=== PATIENT | female | born 1965 | race Caucasian/White ===

== ENCOUNTER 2018-07-18 09:22 | Emergency (ER) | payer BC ==
--- NOTE | 2018-07-18 09:36 | ER Document Report ---
ED Medical Screen (RME) - General Chief Complaint: Abdominal Pain Stated Complaint: ABDOMINAL PAIN Time Seen by Provider: 07/18/18 09:31 Notes: 52-year-old female patient with no significant past medical history. Reports last good bowel movement 2 weeks ago. Has had diffuse abdominal pain for 2 weeks. States when she does move her bowels over the past 2 weeks, it is usually loose or diarrhea. No fevers. Occasional nausea. Saw PCP recently and had an x-ray done, was told to take MiraLAX. I have greeted and performed a rapid initial assessment of this patient. A comprehensive ED assessment and evaluation of the patient, analysis of test results and completion of the medical decision making process will be conducted by additional ED providers. TRAVEL OUTSIDE OF THE [place] IN LAST 30 DAYS: No - Related Data Allergies/Adverse Reactions: No Known Allergies Allergy (Verified 07/18/18 09:23) Past Medical History - Social History Chew tobacco use (# tins/day): No Frequency of alcohol use: Occasional Drug Abuse: None Endocrine Medical History: Reports: Hx Diabetes Mellitus Type 2 - with neuropathy Renal/ Medical History: Denies: Hx Peritoneal Dialysis Psychiatric Medical History: Reports: Hx Depression Physical Exam - Vital signs Vitals: Temp Pulse Resp BP Pulse Ox 98.6 F 101 H 16 85/60 L 97 07/18/18 09:29 07/18/18 09:29 07/18/18 09:29 07/18/18 09:29 07/18/18 09:29 Course - Vital Signs Vital signs: Temp Pulse Resp BP Pulse Ox 98.6 F 101 H 16 85/60 L 97 07/18/18 09:29 07/18/18 09:29 07/18/18 09:29 07/18/18 09:29 07/18/18 09:29 Doctor's Discharge - Discharge Referrals: BRITTNEY YANEZ FNP [Primary Care Provider] - Follow up as needed
[2018-07-18 10:04] LABS: ABSOLUTE EOSINOPHILS # (AUTO) 0.2 10^3/uL (0.0-0.6); ABSOLUTE LYMPHOCYTES (AUTO) 1.6 10^3/uL (0.5-4.7); ABSOLUTE MONOCYTES (AUTO) 1.4 10^3/uL (0.1-1.4); ABSOLUTE NEUT (AUTO) 6.3 10^3/uL (1.7-8.2); BASOPHILS % (AUTO) 0.3 % (0-2); EOSINOPHILS % (AUTO) 2.3 % (0-6); HEMATOCRIT 45.4 % (36.0-47.0); HEMOGLOBIN 15.4 g/dL (12.0-15.5); LYMPHOCYTES % (AUTO) 16.8 % (13-45); MEAN CORPUSCULAR HEMOGLOBIN 34.7 pg (27.0-33.4); MEAN CORPUSCULAR VOLUME 102 fl (80-97); MONOCYTES % (AUTO) 14.8 % (3-13); PLATELET COUNT 284 10^3/uL (150-450); RED BLOOD COUNT 4.45 10^6/uL (3.72-5.28); RED CELL DISTRIBUTION WIDTH 13.3 % (11.5-14.0); SEGMENTED NEUTROPHILS % (AUTO) 65.8 % (42-78); TOTAL CELLS COUNTED % (AUTO) 100 %; WHITE BLOOD COUNT 9.6 10^3/uL (4.0-10.5)
[2018-07-18 10:10] LABS: APPEARANCE,URINE CLOUDY; BILIRUBIN,URINE MODERATE (NEGATIVE); COLOR,URINE AMBER; GLUCOSE, URINE NEGATIVE (NEGATIVE); KETONES,URINE TRACE mg/dL (NEGATIVE); LEUKOCYTE ESTERASE,URINE NEGATIVE (NEGATIVE); NITRITE,URINE NEGATIVE (NEGATIVE); PROTEIN,URINE 100 mg/dL (NEGATIVE); URINE SPECIFIC GRAVITY 1.027
--- NOTE | 2018-07-18 10:11 | ER Document Report ---
ED General - General TRAVEL OUTSIDE OF THE [place] IN LAST 30 DAYS: No <GEETA MAGDALENO - Last Filed: 07/18/18 13:37> <GREGORY BEASLEY - Last Filed: 07/20/18 08:20> - General Chief Complaint: Abdominal Pain Stated Complaint: ABDOMINAL PAIN Time Seen by Provider: 07/18/18 09:31 - HPI Notes: Patient is a 52-year-old female with no significant past medical history who pre sents to the emergency department complaining of mid/lower abdominal pain times 2 weeks with associated nausea and loose stool. Patient states that she does have occasional episodes of vomiting with pain. Her last bowel movement was this morning. She was told by her primary care doctor to come the emergency department for CT scan for possible small bowel obstruction. She is otherwise able to eat and drink, but does have a decreased p.o. intake. She is urinating normally. She has no vaginal discharge, odor, or bleeding. No concern of STD or STI. Denies drug allergies. Patient does report a surgical history of a C- section to her abdomen. Denies any headache, fever, neck pain, URI, sore throat, chest pain, palpitations, syncope, cough, shortness of breath, wheeze, dyspnea, urinary retention, dysuria, hematuria, back pain, loss of control of bowel or bladder, numbness/tingling, saddle anesthesia, muscle paralysis/weakness, or rash. (GEETA MAGDALENO) - Related Data Allergies/Adverse Reactions: No Known Allergies Allergy (Verified 07/18/18 09:36) Past Medical History - Social History Smoking Status: Current Every Day Smoker Chew tobacco use (# tins/day): No Frequency of alcohol use: Occasional Drug Abuse: None Family History: Reviewed & Not Pertinent Patient has suicidal ideation: No Patient has homicidal ideation: No Endocrine Medical History: Reports: Hx Diabetes Mellitus Type 2 - with neuropathy Renal/ Medical History: Denies: Hx Peritoneal Dialysis Psychiatric Medical History: Reports: Hx Depression Past Surgical History: Reports: Hx Section <GEETA MAGDALENO - Last Filed: 07/18/18 13:37> Review of Systems - Review of Systems -: Yes All other systems reviewed and negative <GEETA MAGDALENO - Last Filed: 07/18/18 13:37> Physical Exam <GEETA MAGDALENO - Last Filed: 07/18/18 13:37> - Vital signs Vitals: Temp Pulse Resp BP Pulse Ox 98.6 F 101 H 16 85/60 L 97 07/18/18 09:29 07/18/18 09:29 07/18/18 09:29 07/18/18 09:29 07/18/18 09:29 - Notes Notes: PHYSICAL EXAMINATION: GENERAL: Well-appearing, well-nourished and in no acute distress. A&Ox4. answers questions appropriately. HEAD: Atraumatic, normocephalic. EYES: Pupils equal round and reactive to light, extraocular movements intact, sclera anicteric, conjunctiva are normal. ENT: Nares patent and without discharge. oropharynx clear without exudates. No tonsilar hypertrophy or erythema. Moist mucous membranes. NECK: Normal range of motion, supple without lymphadenopathy LUNGS: Breath sounds clear to auscultation bilaterally and equal. No wheezes rales or rhonchi. HEART: Regular rate and rhythm without murmurs, rubs, gallops. ABDOMEN: Soft, nondistended abdomen. No guarding, no rebound. No masses appreciated. Normal bowel sounds present. No CVA tenderness bilaterally. + mild tenderness to the mid lower abd. Ricketts neg. No tenderness at Mc[place]. Musculoskeletal: FROM to passive/active. Strength 5+/5. Extremities: No cyanosis, clubbing, or edema b/l. Peripheral pulses 2+. Capillary refill less than 3 seconds. NEUROLOGICAL: Normal speech, normal gait. PSYCH: Normal mood, normal affect. SKIN: Warm, Dry, normal turgor, no rashes or lesions noted. (GEETA MAGDALENO) Course - Laboratory Result Diagrams: 07/18/18 09:39 07/18/18 09:39 <GEETA MAGDALENO - Last Filed: 07/18/18 13:37> - Laboratory Result Diagrams: 07/18/18 09:39 07/18/18 09:39 <GREGORY BEASLEY - Last Filed: 07/20/18 08:20> - Re-evaluation Re-evalutation: 07/18/18 13:32 Patient is an afebrile, well-hydrated, 52-year-old female who presents to the emergency department with abdominal pain unspecified and constipation. Vitals are currently acceptable without significant tachycardia, tachypnea, or hypoxia. PE is otherwise unremarkable. Patient's abdomen is now soft nontender. She is nontoxic-appearing and is tolerating p.o. without difficulty. Pt states that she is feeling much better and does not have any discomfort. CBC, CMP, lipase were unremarkable for acute pathology. Her urinalysis appears to be contaminant with 27 epithelial cells and she is otherwise asymptomatic so we will wait for urine culture prior to any treatment. Her CT scan was unremarkable for any acute pathology. No further labs or imaging warranted at this time. Low suspicion/risk for acute appendicitis, bowel obstruction, acute cholecystitis, acute cholangitis, perforated diverticulitis, incarcerated hernia, pancreatitis, perforated ulcer, peritonitis, sepsis, pelvic inflammatory disease, ectopic , tubo-ovarian abscess, ovarian torsion, or other systemic emergent condition at this time. Patient is aware that her condition can change from initial presentation and she needs to monitor symptoms closely and seek medical attention if any acute changes. Rx for zofran and mag citrate. Conservative measures otherwise for symptoms. Recheck with your PCM in 2-3 days. Consider consult with a senior economist. Return to the ED with any worsening/concerning symptoms otherwise as reviewed in discharge. Patient is in agreement. (GEETA MAGDALENO) - Vital Signs Vital signs: Temp Pulse Resp BP Pulse Ox 98.2 F 71 18 105/66 98 07/18/18 13:58 07/18/18 13:58 07/18/18 13:58 07/18/18 13:58 07/18/18 13:58 - Laboratory Laboratory results interpreted by me: 07/18/18 07/18/18 09:39 09:39 MCV 102 H MCH 34.7 H Monocytes % 14.8 H Urine Protein 100 H Urine Ketones TRACE H Urine Bilirubin MODERATE H Urine Urobilinogen 2.0 H Discharge <GEETA MAGDALENO - Last Filed: 07/18/18 13:37> <GREGORY BEASLEY - Last Filed: 07/20/18 08:20> - Discharge Clinical Impression: Unspecified abdominal pain Qualifiers: Abdominal location: lower abdomen, unspecified Qualified Code(s): R10.30 - Lower abdominal pain, unspecified Constipation Qualifiers: Constipation type: unspecified constipation type Qualified Code(s): K59.00 - Constipation, unspecified Condition: Stable Disposition: HOME, SELF-CARE Instructions: Abdominal Pain ([facility]), Antinausea Medication ([facility]), Constipation ([facility]) Additional Instructions: Maintain adequate fluid and food intake [place] diet ([employer] Bananas, rice, apples, toast, etc Zofran as needed tylenol if needed Monitor for any worsening symptoms Make sure you are staying hydrated enough to urinate and have normal BM's Recheck with your PCM in 2-3 days Consider consult with Gastroenterology for ongoing/worsening symptoms Return to the ED with any worsening symptoms and/or development of fever, headache, chest pain, palpitations, syncope, shortness of breath, trouble breathing, abdominal pain, n/v/d, blood in stool/urine, weakness, or other worsening symptoms that are concerning to you. Prescriptions: RX: Magnesium Citrate [Citrate of Magnesia 296 ml Bottle] 296 ml PO ONCE PRN #1 bottle PRN Reason: Ondansetron [Zofran Odt 4 mg Tablet] 1 - 2 tab PO Q4H PRN #15 tab.rapdis PRN Reason: For Nausea/Vomiting Referrals: BRITTNEY YANEZ FNP [Primary Care Provider] - 07/20/18 YESSICA MOE MD [ACTIVE STAFF] - Follow up as needed Cosign for MLP Consult - Cosign -: I was personally available for consultation in the Emergency Department and serving as supervising physician for the MLP. Cosign for MLP: . <GREGORY BEASLEY - Last Filed: 07/20/18 08:20>
[2018-07-18] MEDS ORDERED: NORMAL SALINE 1000 ML 1,000 ML IV ONE (10:12)
[2018-07-18] MEDS ORDERED: ONDANSETRON 4 MG TAB.RAPDIS PO ONE (10:12)
[2018-07-18 10:18] LABS: ALANINE AMINOTRANSFERASE 25 U/L (9-52); ALBUMIN 4.2 g/dL (3.5-5.0); ALKALINE PHOSPHATASE 109 U/L (38-126); ANION GAP 11 (5-19); ASPARTATE AMINO TRANSFERASE 18 U/L (14-36); BILIRUBIN,DIRECT 0.1 mg/dL (0.0-0.4); BILIRUBIN,TOTAL 0.3 mg/dL (0.2-1.3); BLOOD UREA NITROGEN 9 mg/dL (7-20); CALCIUM 9.4 mg/dL (8.4-10.2); CARBON DIOXIDE 29 mmol/L (22-30); CHLORIDE 101 mmol/L (98-107); GLUCOSE 88 mg/dL (75-110); TOTAL PROTEIN 6.7 g/dL (6.3-8.2)
--- NOTE | 2018-07-18 10:54 | RADIOLOGY REPORT (SQ) ---
EXAM DESCRIPTION: ACUTE ABDOMEN SERIES COMPLETED DATE/TIME: 07/18/2018 9:53 am REASON FOR STUDY: Last normal BM 2 weeks ago. Loose stools. COMPARISON: None. NUMBER OF VIEWS: Three views. TECHNIQUE: Frontal chest, supine abdomen and upright/decubitus abdomen radiographic images acquired. LIMITATIONS: None. FINDINGS: CHEST: Lungs clear of infiltrates. FREE AIR: None. No abnormal gas collections. BOWEL GAS PATTERN: Nonobstructive pattern. No dilated loops or air fluid levels. CALCIFICATIONS: No suspicious calcifications. HARDWARE: None in the abdomen. SOFT TISSUES: No gross mass or suggestion of organomegaly. BONES: No acute fracture. No worrisome bone lesions. OTHER: No other significant finding. IMPRESSION: NO RADIOGRAPHIC EVIDENCE FOR ACUTE ABDOMINAL DISEASE. TECHNICAL DOCUMENTATION: JOB ID: [id number] [employer]- All Rights Reserved Reading location - IP/workstation name: [email or web address]
--- NOTE | 2018-07-18 12:54 | RADIOLOGY REPORT (SQ) ---
EXAM DESCRIPTION: CT ABD/PELVIS WITH IV ORAL COMPLETED DATE/TIME: 07/18/2018 12:42 pm REASON FOR STUDY: possible SBO, abd pain COMPARISON: None. TECHNIQUE: CT scan of the abdomen and pelvis performed using helical scanning technique with dynamic intravenous contrast injection. With oral contrast. Images reviewed with lung, soft tissue, and bon e windows. Reconstructed coronal and sagittal MPR images reviewed. Delayed images for evaluation of t he urinary system also acquired. All images stored on PACS. All CT scanners at this facility use dose modulation, iterative reconstruction, and/or weight based d osing when appropriate to reduce radiation dose to as low as reasonably achievable (ALARA). [facility]: Dose Right [facility]: CareDose [facility]: Dose Right [facility]: Teradose 4D [facility]: [employer] CONTRAST TYPE AND DOSE: contrast/concentration: Isovue 350.00 mg/ml; Total Contrast Delivered: 72.0 ml; Total Saline Delivered: 66.0 ml RENAL FUNCTION: GFR > 60. RADIATION DOSE: CT Rad equipment meets quality standard of care and radiation dose reduction techniq ues were employed. CTDIvol: 5.5 - 7.6 mGy. DLP: 657 mGy-cm.. LIMITATIONS: None. FINDINGS: LOWER CHEST: No significant findings. No nodules or infiltrates. LIVER: Normal size. No masses. No dilated ducts. SPLEEN: Normal size. No focal lesions. PANCREAS: No masses. No significant calcifications. No adjacent inflammation or peripancreatic fluid collections. Pancreatic duct not dilated. GALLBLADDER: No identified stones by CT criteria. No inflammatory changes to suggest cholecystitis. ADRENAL GLANDS: No significant masses or asymmetry. RIGHT KIDNEY AND URETER: No solid masses. No significant calcifications. No hydronephrosis or hyd roureter. LEFT KIDNEY AND URETER: No solid masses. No significant calcifications. No hydronephrosis or hydr oureter. AORTA AND VESSELS: No aneurysm. No dissection. Renal arteries, SMA, celiac without stenosis. RETROPERITONEUM: No retroperitoneal adenopathy, hemorrhage or masses. BOWEL AND PERITONEAL CAVITY: No bowel obstruction. No inflammatory changes. There are some scattere d small mesenteric nodes. APPENDIX: Normal. PELVIS: No mass. No free fluid. Normal bladder. ABDOMINAL WALL: No masses. No hernias. BONES: No significant or acute findings. OTHER: No other significant finding. IMPRESSION: Small scattered mesenteric lymph nodes. No small bowel obstruction. TECHNICAL DOCUMENTATION: JOB ID: [id number] Quality ID # [id number]: Final reports with documentation of one or more dose reduction techniques (e.g., Au tomated exposure control, adjustment of the mA and/or kV according to patient size, use of iterative reconstruction technique) 2010 [employer]- All Rights Reserved Reading location - IP/workstation name: [email or web address]
[2018-07-18 14:03] VITALS: BP 105/66
== END 2018-07-18 14:02 | disposition home or self-care (01) ==
LOC: ER 09:22
DX: K59.00 Constipation, unspecified (principal); R10.30 Lower abdominal pain, unspecified; R11.2 Nausea with vomiting, unspecified; R19.7 Diarrhea, unspecified; F17.200 Nicotine dependence, unspecified, uncomplicated; E11.9 Type 2 diabetes mellitus without complications
CPT/HCPCS: 99284; 36415; 87086; 83690; 85025; 87088; 80053; 81001; 74022; 74177; S0119; J7030

== ENCOUNTER 2018-07-20 18:34 | Emergency (ER) | payer BC ==
[2018-07-20] MEDS ORDERED: ONDANSETRON 4 MG TAB.RAPDIS PO ONE (19:29)
--- NOTE | 2018-07-20 19:29 | ER Document Report ---
ED Medical Screen (RME) - General Chief Complaint: Abdominal Pain Stated Complaint: ABDOMINAL PAIN Time Seen by Provider: 07/20/18 19:20 Notes: 52-year-old female patient with abdominal pain. Was seen here 2 days ago with workup including acute abdominal series and CT scans. Most likely diagnosis was constipation. Patient does have some bowel movement, but it is just liquid. She continues with abdominal discomfort. She is having some vomiting now. I have greeted and performed a rapid initial assessment of this patient. A comprehensive ED assessment and evaluation of the patient, analysis of test results and completion of the medical decision making process will be conducted by additional ED providers. TRAVEL OUTSIDE OF THE [place] IN LAST 30 DAYS: No - Related Data Allergies/Adverse Reactions: No Known Allergies Allergy (Verified 07/18/18 09:36) Past Medical History - Social History Chew tobacco use (# tins/day): No Frequency of alcohol use: Occasional Drug Abuse: None Endocrine Medical History: Reports: Hx Diabetes Mellitus Type 2 - with neuropathy Renal/ Medical History: Denies: Hx Peritoneal Dialysis Psychiatric Medical History: Reports: Hx Depression Past Surgical History: Reports: Hx Section Physical Exam - Vital signs Vitals: Temp Pulse Resp BP Pulse Ox 98.8 F 95 16 112/71 96 07/20/18 18:56 07/20/18 18:56 07/20/18 18:56 07/20/18 18:56 07/20/18 18:56 Course - Vital Signs Vital signs: Temp Pulse Resp BP Pulse Ox 98.8 F 95 16 112/71 96 07/20/18 18:56 07/20/18 18:56 07/20/18 18:56 07/20/18 18:56 07/20/18 18:56 Doctor's Discharge - Discharge Referrals: BRITTNEY AYNEZ FNP [Primary Care Provider] - Follow up as needed
[2018-07-20] MEDS ORDERED: NORMAL SALINE 1000 ML 1,000 ML IV ONE (20:35)
[2018-07-20] MEDS ORDERED: KETOROLAC TROMETHAMINE INJ/PF 30 MG/1 ML SDV IV ONE (21:01)
--- NOTE | 2018-07-20 21:23 | ER Document Report ---
ED General - General TRAVEL OUTSIDE OF THE [place] IN LAST 30 DAYS: No <CHASE ROB Leida - Last Filed: 07/21/18 00:07> <WARREN ORTIZ - Last Filed: 07/21/18 00:54> - General Chief Complaint: Abdominal Pain Stated Complaint: ABDOMINAL PAIN Time Seen by Provider: 07/20/18 19:20 Notes: Patient is a 52-year-old female that presents to the emergency department for chief complaint of abdominal pain. Patient reports that she is been having abdominal pain for the last several days, she initially was seen in the emergency department 2 days ago, was diagnosed with possible constipation and discharged home. She is been having the same pain is not relieved, does come and go, she describes the pain is severe when it comes on, as a 9 out of 10. And sharp pain. She denies prior history of this, she is had associated vomiting and diarrhea, and at this time is complaining of nausea. She denies noting any blood in the vomit or the stool. Denies any hematuria, dysuria or urine frequency. No other complaints at this time. Past Medical History: Neuropathy Past Surgical History: Social History: Admits to smoking cigarettes daily, denies alcohol or drug use. Family History: Reviewed and noncontributory for presenting illness Allergies: Reviewed, see documented allergy list. REVIEW OF SYSTEMS: Other than noted above, the 12 point review of systems was reviewed with the patient and were negative, all pertinent findings are included in the HPI. PHYSICAL EXAMINATION: Vital signs reviewed, nursing noted reviewed. GENERAL: Patient appears uncomfortable exam, but not in acute distress. HEAD: Atraumatic, normocephalic. EYES: Eyes appear normal, extraocular movements intact, sclera anicteric, conjunctiva are normal. ENT: nares patent, oropharynx clear without exudates. Moist mucous membranes. NECK: Normal range of motion, supple without lymphadenopathy LUNGS: Breath sounds clear to auscultation bilaterally and equal. No wheezes rales or rhonchi. HEART: Regular rate and rhythm without murmurs ABDOMEN: Soft, diffusely tender to palpate, with some involuntary guarding, normoactive bowel sounds. No rebound or rigidity. No masses appreciated. EXTREMITIES: Nontender, good range of motion, no pitting or edema. NEUROLOGICAL: No focal neurological deficits. Moves all extremities spontaneously Motor and sensory grossly intact on exam. PSYCH: Normal mood, normal affect. SKIN: Warm, Dry, normal turgor, no rashes or lesions noted on exposed skin (CHASE ROB) - Related Data Allergies/Adverse Reactions: No Known Allergies Allergy (Verified 07/18/18 09:36) Past Medical History - Social History Smoking Status: Current Every Day Smoker Chew tobacco use (# tins/day): No Frequency of alcohol use: Occasional Drug Abuse: None Family History: Reviewed & Not Pertinent Patient has suicidal ideation: No Patient has homicidal ideation: No Endocrine Medical History: Reports: Hx Diabetes Mellitus Type 2 - with neuropathy Renal/ Medical History: Denies: Hx Peritoneal Dialysis Psychiatric Medical History: Reports: Hx Depression Past Surgical History: Reports: Hx Section <CHASE ROB - Last Filed: 07/21/18 00:07> - Vital signs Vitals: Temp Pulse Resp BP Pulse Ox 98.8 F 95 16 112/71 96 07/20/18 18:56 07/20/18 18:56 07/20/18 18:56 07/20/18 18:56 07/20/18 18:56 Course - Laboratory Result Diagrams: 07/20/18 21:35 07/20/18 21:35 <CHASE ROB - Last Filed: 07/21/18 00:07> - Laboratory Result Diagrams: 07/20/18 21:35 07/20/18 21:35 <WARREN ORTIZ - Last Filed: 07/21/18 00:54> - Re-evaluation Re-evalutation: Patient seen and examined vital signs reviewed. Laboratory data and imaging were ordered as appropriate for the patient's presenting symptoms and complaint, with consideration of any critical or life threatening conditions that may be associated with their obtained history and exam as noted above. Patient was treated with IV fluid, Zofran, and Toradol for her pain Results were reviewed when available and demonstrated a leukocytosis of 16,000, this was increased from her last visit, therefore I decided to obtain a CT of the abdomen and pelvis, her blood work was otherwise unremarkable, lactic acid normal, lipase negative, UA unremarkable. The patient was re-evaluated and was resting comfortably in the bed, sleeping Evaluation was most consistent with abdominal pain, nonspecific Results were discussed with the patient at this point, after careful consideration I feel that that patient can be discharged from the emergency department, the patient was educated treatments and reasons to return to the emergency department based on their presumed diagnosis as noted above, they were advised to followup with a primary care physician in 2-3 days. Patient was agreeable to plan of care. *Note is created using voice recognition software and may contain spelling, syntax or grammatical errors. (CHASE ROB) 07/21/18 00:48 Patient was checked out to me by Dr. Glen Rob pending results of CT scan. CT scan shows colitis. I went back and spoke with the patient to try to obtain some more information. Patient's symptoms have actually been ongoing for about 2-3 weeks. Just prior to the symptoms started she had finished a course of antibiotics for a tooth infection. This suggests that this potentially could be C. difficile related or colitis or other bacterial cause. I therefore placed on both Cipro and Flagyl. She currently looks well and feels well and is not currently in pain. Will prescribe her both Cipro and Flagyl. I informed her that she needs to follow-up with her doctor on or Friday for reevaluation. I encouraged her return to ER immediately if she has worsening pain, recurrent fevers, vomiting, blood in her stool, or if she feels she is worsening in any way. Patient and agree with plan and patient will be discharged home. (WARREN ORTIZ) - Vital Signs Vital signs: Temp Pulse Resp BP Pulse Ox 100.0 F 76 15 107/61 96 07/20/18 23:17 07/20/18 23:17 07/20/18 23:17 07/20/18 23:17 07/20/18 23:17 - Laboratory Laboratory results interpreted by me: 07/20/18 07/20/18 07/20/18 21:35 21:35 21:35 WBC 16.7 H MCV 102 H MCH 34.4 H Seg Neutrophils % 81.5 H Lymphocytes % 8.2 L Absolute Neutrophils 13.6 H Absolute Monocytes 1.5 H Total Protein 6.1 L Urine Protein 30 H Urine Ketones 20 H Urine Bilirubin SMALL H Urine Urobilinogen 2.0 H Discharge <CHASE ROB - Last Filed: 07/21/18 00:07> <WARREN ORTIZ - Last Filed: 07/21/18 00:54> - Discharge Clinical Impression: Colitis Abdominal pain Qualifiers: Abdominal location: unspecified location Qualified Code(s): R10.9 - Unspecified abdominal pain Condition: Stable Disposition: HOME, SELF-CARE Additional Instructions: Your CT scan reveals colitis. This is inflammation of the bowel that can lead to diarrhea. This usually caused by an infection. Sometimes this infection is viral or bacterial. I suspect that your infection is bacterial based on your recent antibiotic use and the recurrence of symptoms. Because of recent antibiotic use your diarrhea could be caused by a bacteria called C. Diff. Treatment is with another antibiotic I will place you on 2 antibiotics to help treat possible underlying infection. These antibiotics are Ciprofloxacin and Metronidazole. Please take these antibiotics as prescribed. Metronidazole can cause some vomiting especially if you drink alcohol. Please avoid all alcohol use while on this antibiotic. You have been prescribed an antibiotic called Ciprofloxacin that is in the class of antibiotics called fluoroquinolones. On rare occasions these can cause weakness of the tendons. You should therefore avoid any type of heavy lifting or sporting activities while you are on this antibiotic and up to 1 week after stopping it. Please return to the ER immediately if you have blood in your stool, worsening abdominal pain, recurrent fevers not responding to Tylenol, vomiting, or if you feel that you are worsening in any way. Please follow-up with your doctor on or Friday for reevaluation. Prescriptions: Ciprofloxacin HCl [Cipro 500 mg Tablet] 500 mg PO BID #14 tablet Dicyclomine HCl [Bentyl 20 mg Tablet] 20 mg PO QID PRN #20 tablet PRN Reason: Abdominal Cramping Metronidazole [Flagyl 500 mg Tablet] 500 mg PO Q6H #28 tablet Forms: Return to Work Referrals: BRITTNEY YANEZ FNP [Primary Care Provider] - 07/23/18
[2018-07-20 21:46] LABS: ABSOLUTE EOSINOPHILS # (AUTO) 0.1 10^3/uL (0.0-0.6); ABSOLUTE LYMPHOCYTES (AUTO) 1.4 10^3/uL (0.5-4.7); ABSOLUTE MONOCYTES (AUTO) 1.5 10^3/uL (0.1-1.4); ABSOLUTE NEUT (AUTO) 13.6 10^3/uL (1.7-8.2); BASOPHILS % (AUTO) 0.2 % (0-2); EOSINOPHILS % (AUTO) 0.9 % (0-6); HEMATOCRIT 42.7 % (36.0-47.0); HEMOGLOBIN 14.4 g/dL (12.0-15.5); LYMPHOCYTES % (AUTO) 8.2 % (13-45); MEAN CORPUSCULAR HEMOGLOBIN 34.4 pg (27.0-33.4); MEAN CORPUSCULAR HGB CONC 33.8 g/dL (32.0-36.0); MEAN CORPUSCULAR VOLUME 102 fl (80-97); MONOCYTES % (AUTO) 9.2 % (3-13); PLATELET COUNT 287 10^3/uL (150-450); RED CELL DISTRIBUTION WIDTH 13.1 % (11.5-14.0); SEGMENTED NEUTROPHILS % (AUTO) 81.5 % (42-78); TOTAL CELLS COUNTED % (AUTO) 100 %; WHITE BLOOD COUNT 16.7 10^3/uL (4.0-10.5)
[2018-07-20 21:57] LABS: ALANINE AMINOTRANSFERASE 31 U/L (9-52); ALBUMIN 3.8 g/dL (3.5-5.0); ALKALINE PHOSPHATASE 91 U/L (38-126); ANION GAP 7 (5-19); ASPARTATE AMINO TRANSFERASE 15 U/L (14-36); BILIRUBIN,DIRECT 0.1 mg/dL (0.0-0.4); BILIRUBIN,TOTAL 0.4 mg/dL (0.2-1.3); BLOOD UREA NITROGEN 8 mg/dL (7-20); CALCIUM 8.8 mg/dL (8.4-10.2); CARBON DIOXIDE 27 mmol/L (22-30); CHLORIDE 104 mmol/L (98-107); GLUCOSE 96 mg/dL (75-110); LIPASE 32.2 U/L (23-300); POTASSIUM 3.6 mmol/L (3.6-5.0); SODIUM 137.7 mmol/L (137-145); TOTAL PROTEIN 6.1 g/dL (6.3-8.2)
[2018-07-20 22:17] LABS: APPEARANCE,URINE CLOUDY; BILIRUBIN,URINE SMALL (NEGATIVE); COLOR,URINE AMBER; GLUCOSE, URINE NEGATIVE (NEGATIVE); KETONES,URINE 20 mg/dL (NEGATIVE); LEUKOCYTE ESTERASE,URINE NEGATIVE (NEGATIVE); NITRITE,URINE NEGATIVE (NEGATIVE); PROTEIN,URINE 30 mg/dL (NEGATIVE); URINE SPECIFIC GRAVITY 1.024
--- NOTE | 2018-07-21 00:35 | RADIOLOGY REPORT (SQ) ---
CT ABDOMEN PELVIS WITH IV CONTRAST HISTORY: Abdominal pain. COMPARISON: 07/18/2018. TECHNIQUE: CT scan of the abdomen and pelvis with IV contrast. This exam was performed according to our departmental dose-optimization program, which includes automated exposure control, adjustment of the mA and/or kV according to patient size and/or use of iterative reconstruction technique. FINDINGS: The lung bases are clear. No pleural or pericardial effusions. The liver, spleen, and pancreas are unremarkable. No gallstones by CT criteria. No adrenal masses are identified. The kidneys are symmetric without hydronephrosis. No ureteral or bladder stones are seen. There is an enhancing leiomyoma in the uterine fundus. No small bowel obstruction. There is diffuse wall thickening throughout the colon most prominent in the sigmoid colon consistent with colitis. The colon is partially fluid-filled suggesting a diarrheal illness. No free fluid or free air is identified. There are small scattered mesenteric lymph nodes likely reactive. The abdominal aorta is normal caliber. Degenerative disc disease at L5-S1. IMPRESSION: 1. Diffuse colitis greatest in the sigmoid colon. 2. Fluid-filled colon, suggesting a diarrheal illness.
[2018-07-21] MEDS ORDERED: METRONIDAZOLE 500 MG TABLET PO ONE (00:47)
[2018-07-21] MEDS ORDERED: CIPROFLOXACIN HCL 500 MG TABLET PO ONE (00:47)
[2018-07-21 01:05] VITALS: BP 97/63
== END 2018-07-21 01:05 | disposition home or self-care (01) ==
LOC: ER 18:34
DX: K52.9 Noninfective gastroenteritis and colitis, unspecified (principal); E11.40 Type 2 diabetes mellitus with diabetic neuropathy, unspecified; R10.9 Unspecified abdominal pain; F17.210 Nicotine dependence, cigarettes, uncomplicated
CPT/HCPCS: 99284; 96361; 96374; 36415; 83690; 85025; 80053; 81001; 83605; 74177; S0119; J1885; J7030

== ENCOUNTER 2020-03-03 09:57 | Observation (INO) | payer BC ==
[2020-03-03] MEDS ORDERED: IPRATROPIUM/ALBUTEROL 0.5-2.5 MG/3 ML AMPUL NEB ONE (10:39)
[2020-03-03] MEDS ORDERED: NORMAL SALINE 1000 ML 1,000 ML IV ONE (10:39)
[2020-03-03] MEDS ORDERED: METHYLPREDNISOLONE INJ 125 MG/2 ML SDV IV ONE (10:39)
--- NOTE | 2020-03-03 10:40 | ER Document Report ---
Entered by JOSHUA RAYA SCRIBE 03/03/20 1035 Acting as scribe for:GILBERT LANG MD ED Respiratory Problem - General Chief Complaint: Breathing Difficulty Stated Complaint: DIFFICULTY BREATHING Time Seen by Provider: 03/03/20 10:25 Mode of Arrival: Ambulatory Information source: Patient Notes: This 54-year-old female patient presents to the emergency department today with complaints of a COPD exacerbation. Patient was seen approximately a month ago and was admitted with a similar complaint, at that time she was tested for COVID and it was negative. EMS found the patient with a room air saturation of 83%, she was given 1 breathing treatment and it huy to 94% although when she arrived here it was back down to 86%. She reports that she woke up around 2:30 AM in a coughing fit and has been coughing much of today, always nonproductive. Patient was admitted here on 01/31/2020 through 02/03/2020 for a COPD exacerbation. TRAVEL OUTSIDE OF THE [place] IN LAST 30 DAYS: No - Related Data Allergies/Adverse Reactions: No Known Allergies Allergy (Verified 07/18/18 09:36) Past Medical History - General Information source: Patient, REPLACED BY [facility] Records - Social History Smoking Status: Current Every Day Smoker Cigarette use (# per day): Yes Family History: Reviewed & Not Pertinent Pulmonary Medical History: Reports: Hx COPD Endocrine Medical History: Reports: Hx Diabetes Mellitus Type 2 - with neuropathy Psychiatric Medical History: Reports: Hx Depression Past Surgical History: Reports: Hx Section Review of Systems - Review of Systems Constitutional: No symptoms reported EENT: No symptoms reported Cardiovascular: No symptoms reported Respiratory: See HPI, Cough, Short of breath Gastrointestinal: No symptoms reported Genitourinary: No symptoms reported Female Genitourinary: No symptoms reported Musculoskeletal: No symptoms reported Skin: No symptoms reported Hematologic/Lymphatic: No symptoms reported Neurological/Psychological: No symptoms reported -: Yes All other systems reviewed and negative Physical Exam - Vital signs Vitals: Pulse Ox 93 03/03/20 10:00 - Notes Notes: Physical Exam: General: Alert, appears older than stated age. HEENT: Normocephalic. Atraumatic. PERRL. Extraocular movements intact. Oropharynx clear. Neck: Supple. Non-tender. Respiratory: Moderate respiratory distress, tachypneic with retractions. Wheezing and rhonchi bilaterally. Cardiovascular: Regular rate and rhythm. Abdominal: Normal Inspection. Non-tender. No distension. Normal Bowel Sounds. Back: No gross abnormalities. Extremities: Moves all four extremities. Upper extremities: Normal inspection. Normal ROM. Lower extremities: Normal inspection. No edema. Normal ROM. Neurological: Normal cognition. AAOx4. Normal speech. Psychological: Normal affect. Normal Mood. Skin: Warm. Dry. Normal color. Course - Vital Signs Vital signs: Temp Pulse Resp BP Pulse Ox 98.1 F 87 16 122/69 95 03/03/20 23:58 03/04/20 02:21 03/04/20 02:21 03/03/20 23:58 03/04/20 02:21 - Laboratory Result Diagrams: 03/03/20 10:14 03/03/20 10:14 Laboratory results interpreted by me: 03/03/20 03/03/20 03/03/20 10:14 10:14 10:14 MCV 99 H MCH 34.3 H Seg Neuts % (Manual) 83 H Lymphocytes % (Manual) 5 L Est GFR (MDRD) Non-Af 51 L Magnesium AST 47 H ALT 62 H Alkaline Phosphatase 128 H NT-Pro-B Natriuret Pep 247 H Urine Ketones 03/03/20 03/03/20 10:14 13:45 MCV MCH Seg Neuts % (Manual) Lymphocytes % (Manual) Est GFR (MDRD) Non-Af Magnesium 1.5 L AST ALT Alkaline Phosphatase NT-Pro-B Natriuret Pep Urine Ketones TRACE H - Diagnostic Test Radiology reviewed: Image reviewed - Chest x-ray does not show acute abnormalities. - EKG Interpretation by Mi EKG shows normal: Sinus rhythm, [place], Intervals, QRS Complexes, ST-T Waves Rate: Tachycardia - 109 - Consults Dr. Dash Time consulted: 13:56 Consulted provider: will come to ER Critical Care Note - Critical Care Note Total time excluding time spent on procedures (mins): 30 Comments: At least 30 minutes spent evaluating the patient, reviewing prior records and prior history. The patient was brought in by EMS after becoming extremely hypoxic at work due to her COPD exacerbation. She received multiple breathing treatments, steroids, magnesium, and was reevaluated several times to determine if she was a candidate for outpatient management. It was decided that this was not a safe option, so the patient was discussed with the hospitalist service transportation security officer for admission. Discharge - Discharge Clinical Impression: COPD exacerbation, Acute bronchitis with bronchospasm Condition: Stable Disposition: ADMITTED INPATIENT Admitting Provider: Hardy (Hospitalist) Unit Admitted: Medical Floor I personally performed the services described in the documentation, reviewed and edited the documentation which was dictated to the scribe in my presence, and it accurately records my words and actions.
[2020-03-03 10:53] LABS: HEMATOCRIT 38.7 % (36.0-47.0); HEMOGLOBIN 13.5 g/dL (12.0-15.5); MEAN CORPUSCULAR HEMOGLOBIN 34.3 pg (27.0-33.4); MEAN CORPUSCULAR HGB CONC 34.8 g/dL (32.0-36.0); MEAN CORPUSCULAR VOLUME 99 fl (80-97); PLATELET COUNT 242 10^3/uL (150-450); RED BLOOD COUNT 3.92 10^6/uL (3.72-5.28); RED CELL DISTRIBUTION WIDTH 12.8 % (11.5-14.0); WHITE BLOOD COUNT 9.4 10^3/uL (4.0-10.5)
[2020-03-03] MEDS: MAGNESIUM SULFATE/D5W 1 GM/100 ML RTUPB IV SCH ×2 (10:57→11:56)
[2020-03-03 10:58] LABS: ALBUMIN 4.1 g/dL (3.5-5.0); ALKALINE PHOSPHATASE 128 U/L (38-126); ANION GAP 10 (5-19); ASPARTATE AMINO TRANSFERASE 47 U/L (14-36); BILIRUBIN,DIRECT 0.4 mg/dL (0.0-0.4); BILIRUBIN,TOTAL 0.8 mg/dL (0.2-1.3); BLOOD UREA NITROGEN 14 mg/dL (7-20); CALCIUM 9.4 mg/dL (8.4-10.2); CARBON DIOXIDE 26 mmol/L (22-30); CHLORIDE 102 mmol/L (98-107); CREATINE KINASE 110 U/L (30-135); GLUCOSE 75 mg/dL (75-110); POTASSIUM 3.9 mmol/L (3.6-5.0); TOTAL PROTEIN 6.6 g/dL (6.3-8.2)
--- NOTE | 2020-03-03 11:01 | RADIOLOGY REPORT (SQ) ---
EXAM DESCRIPTION: CHEST SINGLE VIEW IMAGES COMPLETED DATE/TIME: 03/03/2020 10:51 am REASON FOR STUDY: sob COMPARISON: AP view of the chest from 01/31/2020. EXAM PARAMETERS: NUMBER OF VIEWS: One view. TECHNIQUE: An AP view of the chest was obtained. RADIATION DOSE: NA LIMITATIONS: None. FINDINGS: LUNGS AND PLEURA: No consolidation, pleural effusion or pneumothorax. MEDIASTINUM AND HILAR STRUCTURES: No mediastinal or hilar contour abnormality. HEART AND VASCULAR STRUCTURES: The cardiac silhouette and pulmonary vasculature are within normal castro its. BONES: No acute findings. HARDWARE: None in the chest. OTHER: No other finding. IMPRESSION: No acute cardiopulmonary process. TECHNICAL DOCUMENTATION: JOB ID: [id number] 2010 [employer]- All Rights Reserved Reading location - IP/workstation name: [email or web address]
[2020-03-03 11:16] LABS: ABSOLUTE LYMPHOCYTES# (MANUAL) 0.5 10^3/uL (0.5-4.7); ABSOLUTE MONOCYTES # (MANUAL) 0.7 10^3/uL (0.1-1.4); BASOPHILS % (MANUAL) 1 % (0-2); EOSINOPHILS % (MANUAL) 4 % (0-6); LYMPHOCYTES % (MANUAL) 5 % (13-45); MONOCYTES % (MANUAL) 7 % (3-13); PLATELET COMMENT ADEQUATE; RBC MORPHOLOGY COMMENT NORMO-CYTIC/CHROMIC; SEGMENTED NEUTROPHILS % (MAN) 83 % (42-78); TOTAL CELLS COUNTED 100; TOXIC GRANULATION 1+
--- NOTE | 2020-03-03 11:17 | EKG REPORT ---
SEVERITY:- OTHERWISE NORMAL ECG - SINUS TACHYCARDIA : Confirmed by: Charis Aguirre MD 03-Mar-2020 11:15:48
[2020-03-03] MEDS ORDERED: ALBUTEROL SULFATE 0.083% NEB 2.5 MG/3 ML AMPUL NEB ONE ×2 (12:21→13:54)
[2020-03-03 14:29] LABS: APPEARANCE,URINE SLIGHTLY-CLOUDY; BILIRUBIN,URINE NEGATIVE (NEGATIVE); COLOR,URINE YELLOW; GLUCOSE, URINE NEGATIVE (NEGATIVE); KETONES,URINE TRACE mg/dL (NEGATIVE); LEUKOCYTE ESTERASE,URINE NEGATIVE (NEGATIVE); NITRITE,URINE NEGATIVE (NEGATIVE); PROTEIN,URINE NEGATIVE (NEGATIVE); UROBILINOGEN,URINE NEGATIVE mg/dL (<2.0)
[2020-03-03] MEDS ORDERED: IPRATROPIUM/ALBUTEROL 0.5-2.5 MG/3 ML AMPUL NEB PRN (16:37)
[2020-03-03] MEDS ORDERED: MAG HYDROX/AL HYDROX/SIMETH SUSP 30 ML UDCUP PO PRN (16:37)
[2020-03-03] MEDS ORDERED: ACETAMINOPHEN 325 MG TABLET PO PRN (16:37)
[2020-03-03] MEDS ORDERED: MAGNESIUM HYDROXIDE SUSP 30 ML UDCUP PO PRN (16:37)
[2020-03-03] MEDS ORDERED: PROMETHAZINE HCL 25 MG TABLET PO PRN (16:37)
[2020-03-03] MEDS ORDERED: GUAIFENESIN/D-METHORPHAN (200-20 MG) SYRUP 10 ML PO PRN (16:47)
--- NOTE | 2020-03-03 17:18 | PDOC H&P ---
History of Present Illness Admission Date/PCP: 03/03/20 15:34 YUMIKO SETHI Patient complains of: Acute onset shortness of breath History of Present Illness: ELIZABETH RAMIREZ is a 54 year old female who was just discharged from [facility] on February 05. She has a relatively new diagnosis of chronic obstructive pulmonary disease. She was discharged on a prednisone taper and was to complete a course of azithromycin. She reports waking up at approximately 2:30 AM and began coughing. She has been coughing consistently since then. She was back at work today on [employer] when she became acutely more short of breath. EMS was called. Oxygen saturation was 83% on room air. She was given nebulizer treatments and supplemental oxygen and she was above 90%. Upon arrival to the emergency department off of oxygen she dropped again to the mid 80s and so oxygen therapy was reestablished her white blood cell count is normal. Her platelet count is normal. Serum chemistries are unremarkable including her glucose. Her magnesium is just below the normal limit at 1.5 and the AST, ALT and alkaline phosphatase are minimally elevated. The patient will be admitted for an exacerbation of her COPD. She does also present with acute on chronic respiratory failure with hypoxia. She will be given antibiotic therapy for possible bronchitis associated with COPD. She will be given systemic steroids. She will receive nebulizer treatments and we will try and taper her from the oxygen. I am hoping that we can get her turned around and discharge in 24 to 48 hours. Past Medical History Cardiac Medical History: Denies: Congestive Heart Failure, Coronary Artery Disease, Myocardial Infarction Pulmonary Medical History: Reports: Chronic Obstructive Pulmonary Disease (COPD) EENT Medical History: Denies: Cataracts, Ears, Nose, Throat Neurological Medical History: Reports: Other - Significant hearing loss Denies: Ischemic CVA Endocrine Medical History: Reports: Diabetes Mellitus Type 2 - with neuropathy Denies: Hypothyroidism Renal/ Medical History: Denies: Chronic Kidney Disease, Nephrolithiasis Malignancy Medical History: Reports: None GI Medical History: Denies: Diverticulitis, Gastroesophageal Reflux Disease, Hiatal Hernia Musculoskeltal Medical History: Reports: Arthritis Psychiatric Medical History: Reports: Depression, Tobacco Dependency Traumatic Medical History: Reports: None Hematology: Denies: Anemia, Bleeding Tendencies Infectious Medical History: Reports: None Past Surgical History Past Surgical History: Reports: Section Social History Information Source: Patient, COUNT [facility] Records Lives with: Family Smoking Status: Current Every Day Smoker Electronic Cigarette use?: Yes Frequency of Alcohol Use: None Hx Recreational Drug Use: Yes Drugs: Marijuana Hx Prescription Drug Abuse: No - Advance Directive Resuscitation Status: Full Code Family History Family History: CAD, Hypertension Parental Family History Reviewed: Yes Children Family History Reviewed: Yes Sibling(s) Family History Reviewed.: Yes Medication/Allergy Home Medications: Fluoxetine HCl [Prozac] 80 mg PO QAM 01/31/20 Gabapentin [Neurontin] 800 mg PO TID 01/31/20 Meloxicam [Mobic] 15 mg PO DAILY 01/31/20 Prednisone [Deltasone 20 mg Tablet] 60 mg PO DAILY #12 tablet 02/03/20 Albuterol Sulfate [Albuterol Sulfate Hfa] 1 puff IH Q4HP PRN 03/03/20 Benzonatate [Tessalon Perles 100 mg Capsule] 100 mg PO Q8HP PRN 03/03/20 Allergies/Adverse Reactions: No Known Allergies Allergy (Verified 07/18/18 09:36) Review of Systems All systems: reviewed and no additional remarkable complaints except as stated Respiratory: PRESENT: dyspnea Neurological: PRESENT: other - Hearing loss Physical Exam Vital Signs: Temp Pulse Resp BP Pulse Ox 98.4 F 16 114/84 100 03/03/20 12:00 03/03/20 14:01 03/03/20 14:01 03/03/20 14:01 Intake & Output 03/02/20 03/03/20 03/04/20 06:59 06:59 06:59 Intake Total 1200 Balance 1200 Weight 63.8 kg General appearance: PRESENT: no acute distress, cooperative, well-developed, other - Very hard of hearing Head exam: PRESENT: atraumatic, normocephalic Eye exam: PRESENT: conjunctiva pink. ABSENT: scleral icterus Ear exam: PRESENT: normal external ear exam. ABSENT: bleeding, drainage Mouth exam: PRESENT: moist, tongue midline Respiratory exam: PRESENT: rhonchi, symmetrical, unlabored. ABSENT: rales, tachypnea, wheezes Cardiovascular exam: PRESENT: RRR, +S1, +S2. ABSENT: bradycardia, diastolic murmur, irregular rhythm, systolic murmur, tachycardia GI/Abdominal exam: PRESENT: normal bowel sounds, soft. ABSENT: distended, guarding, tenderness Rectal exam: PRESENT: deferred Gentrourinary exam: ABSENT: indwelling catheter Extremities exam: ABSENT: calf tenderness, joint swelling, pedal edema Musculoskeletal exam: PRESENT: ambulatory, normal inspection. ABSENT: deformity, dislocation Neurological exam: PRESENT: alert, awake, oriented to person, oriented to place, oriented to time, oriented to situation. ABSENT: altered, CN II-XII grossly intact - Severe hearing loss Psychiatric exam: PRESENT: flat affect. ABSENT: agitated, anxious Focused psych exam: ABSENT: delusional, paranoid Skin exam: PRESENT: dry, normal color, warm. ABSENT: rash Results Laboratory Results: 03/03/20 10:14 03/03/20 10:14 03/03/20 03/03/20 03/03/20 10:14 10:14 10:14 WBC 9.4 RBC 3.92 Hgb 13.5 Hct 38.7 MCV 99 H MCH 34.3 H MCHC 34.8 RDW 12.8 Plt Count 242 Seg Neutrophils % Not Reportable Sodium 137.8 Potassium 3.9 Chloride 102 Carbon Dioxide 26 Anion Gap 10 BUN 14 Creatinine 1.12 Est GFR ( Amer) > 60 Glucose 75 Calcium 9.4 Magnesium 1.5 L Total Bilirubin 0.8 AST 47 H Alkaline Phosphatase 128 H Total Protein 6.6 Albumin 4.1 Urine Color Urine Appearance Urine pH Ur Specific [place] Urine Protein Urine Glucose (UA) Urine Ketones Urine Blood Urine Nitrite Ur Leukocyte Esterase Urine WBC (Auto) Urine RBC (Auto) 03/03/20 13:45 WBC RBC Hgb Hct MCV MCH MCHC RDW Plt Count Seg Neutrophils % Sodium Potassium Chloride Carbon Dioxide Anion Gap BUN Creatinine Est GFR ( Amer) Glucose Calcium Magnesium Total Bilirubin AST Alkaline Phosphatase Total Protein Albumin Urine Color YELLOW Urine Appearance SLIGHTLY-CLOUDY Urine pH 5.0 Ur Specific [place] 1.010 Urine Protein NEGATIVE Urine Glucose (UA) NEGATIVE Urine Ketones TRACE H Urine Blood NEGATIVE Urine Nitrite NEGATIVE Ur Leukocyte Esterase NEGATIVE Urine WBC (Auto) 12 Urine RBC (Auto) 1 03/03/20 03/03/20 03/03/20 10:14 10:14 10:14 Creatine Kinase 110 Troponin I < 0.012 NT-Pro-B Natriuret Pep 247 H Impressions: Chest X-Ray 03/03/20 10:16 IMPRESSION: No acute cardiopulmonary process. Assessment and Plan - Diagnosis (1) Acute and chronic respiratory failure with hypoxia Is this a current diagnosis for this admission?: Yes Plan: Patient presented with hypoxia and increased work of breathing. She still requires nasal cannula oxygen to keep her oxygen saturation 90% or better. We will attempt to taper her oxygen back to room air. (2) COPD with exacerbation Is this a current diagnosis for this admission?: Yes Plan: She will receive aggressive nebulizer treatments. She will also receive several doses of systemic steroids. At discharge she really needs to follow-up with pulmonology and use a combination inhaler daily. We will continue to try and encourage her to stop smoking and or vaping. For possible bronchitis will add doxycycline, especially since she was just discharged 4 weeks ago, however she is not coughing up any purulent material. (3) Hypomagnesemia Is this a current diagnosis for this admission?: Yes Plan: We will start magnesium oxide p.o. I will give a small dose IV today. (4) Nicotine dependence Qualifiers: Nicotine product type: other Substance use status: uncomplicated Qualified Code(s): F17.290 - Nicotine dependence, other tobacco product, uncomplicated Is this a current diagnosis for this admission?: Yes Plan: She previously smoked cigarettes and now admits to vaping. We will continue to encourage cessation and make a nicotine patch available. (5) Depression Qualifiers: Depression Type: unspecified Qualified Code(s): F32.9 - Major depressive d isorder, single episode, unspecified Is this a current diagnosis for this admission?: Yes Plan: Continue fluoxetine (6) Neuropathy Is this a current diagnosis for this admission?: Yes Plan: The records indicate diabetes with neuropathy however she has no glucose urea and her serum glucose is only 75. I doubt very much that she has a history of diabetes but rather another type of peripheral neuropathy of unknown etiology. We will continue her gabapentin. - Time Time Spent with patient: 35 or more minutes Smoking Cessation Education: 3 to 10 minutes Medications reviewed and adjusted accordingly: Yes Anticipated Discharge Disposition: Home, Self Care Anticipated Discharge Timeframe: within 48 hours
[2020-03-03] MEDS ORDERED: NICOTINE 14 MG/24 HR PATCH.TD24 TD PRN (17:19)
[2020-03-03] MEDS ORDERED: MAGNESIUM SULFATE/D5W 1 GM/100 ML RTUPB IV ONE (17:45)
[2020-03-03] MEDS: MAGNESIUM OXIDE 400 MG TABLET PO SCH (17:52)
[2020-03-03] MEDS: IPRATROPIUM/ALBUTEROL 0.5-2.5 MG/3 ML AMPUL NEB SCH (20:55)
[2020-03-03] MEDS: BUDESONIDE NEB 0.5 MG/2 ML AMPUL NEB SCH (20:55)
[2020-03-03] MEDS: GABAPENTIN 400 MG CAPSULE PO SCH (22:22)
[2020-03-03] MEDS: FAMOTIDINE 20 MG TABLET PO SCH (22:22)
[2020-03-03] MEDS: DOXYCYCLINE HYCLATE 100 MG in DEXTROSE 5%-WATER 250 ML IV SCH (22:24)
[2020-03-03] MEDS: HEPARIN SOD (PORCINE) 5,000 UNIT/ML 1 ML VIAL SUBCUT SCH (22:25)
[2020-03-04] MEDS ORDERED: MELATONIN 5 MG TABLET PO ONE (00:15)
[2020-03-04] MEDS: GUAIFENESIN/CODEINE PHOS 100-10 MG/ 5 ML UDC PO PRN ×2 (00:15→21:26)
[2020-03-04] MEDS: IPRATROPIUM/ALBUTEROL 0.5-2.5 MG/3 ML AMPUL NEB SCH ×4 (02:21→20:57)
[2020-03-04] MEDS: GABAPENTIN 400 MG CAPSULE PO SCH ×3 (05:46→21:26)
[2020-03-04] MEDS: HEPARIN SOD (PORCINE) 5,000 UNIT/ML 1 ML VIAL SUBCUT SCH ×3 (05:46→21:25)
[2020-03-04 07:01] LABS: ALBUMIN 3.6 g/dL (3.5-5.0); ALKALINE PHOSPHATASE 117 U/L (38-126); ANION GAP 9 (5-19); ASPARTATE AMINO TRANSFERASE 30 U/L (14-36); BILIRUBIN,DIRECT 0.2 mg/dL (0.0-0.4); BILIRUBIN,TOTAL 0.3 mg/dL (0.2-1.3); BLOOD UREA NITROGEN 11 mg/dL (7-20); CALCIUM 9.1 mg/dL (8.4-10.2); CARBON DIOXIDE 25 mmol/L (22-30); CHLORIDE 104 mmol/L (98-107); GLUCOSE 145 mg/dL (75-110); POTASSIUM 3.8 mmol/L (3.6-5.0); TOTAL PROTEIN 5.9 g/dL (6.3-8.2)
[2020-03-04] MEDS: BUDESONIDE NEB 0.5 MG/2 ML AMPUL NEB SCH ×2 (09:14→20:57)
[2020-03-04] MEDS: MELOXICAM 15 MG TABLET PO SCH (09:39)
[2020-03-04] MEDS: FAMOTIDINE 20 MG TABLET PO SCH ×2 (09:39→21:26)
[2020-03-04] MEDS: FLUOXETINE HCL 20 MG CAPSULE PO SCH (09:40)
[2020-03-04] MEDS: DOXYCYCLINE HYCLATE 100 MG in DEXTROSE 5%-WATER 250 ML IV SCH ×2 (09:40→21:25)
[2020-03-04] MEDS: MAGNESIUM OXIDE 400 MG TABLET PO SCH ×2 (09:40→17:07)
--- NOTE | 2020-03-04 18:40 | PDOC PROGRESS REPORT ---
Subjective Progress Note for:: 03/04/20 Subjective:: Patient is feeling better in terms of her breathing today. Still coughs quite frequently especially when attempting to talk. She was hoping to go home today but is okay with staying as she still dyspneic. Reason For Visit: ACUTE EXACERBATION COPD,DIABETES MELLITUS TYPE 2, Physical Exam Vital Signs: Temp Pulse Resp BP Pulse Ox 98.0 F 98 18 116/57 L 94 03/04/20 15:23 03/04/20 15:23 03/04/20 15:23 03/04/20 15:23 03/04/20 15:23 Intake & Output 03/03/20 03/04/20 03/05/20 06:59 06:59 06:59 Intake Total 1550 250 Balance 1550 250 Weight 55.6 kg General appearance: PRESENT: no acute distress, cooperative Neck exam: ABSENT: JVD Respiratory exam: PRESENT: symmetrical, unlabored, wheezes. ABSENT: crackles, tachypnea Cardiovascular exam: PRESENT: RRR, +S1, +S2. ABSENT: tachycardia GI/Abdominal exam: PRESENT: soft. ABSENT: rebound, rigid, tenderness Neurological exam: PRESENT: alert, awake Results Laboratory Results: 03/03/20 10:14 03/04/20 06:22 03/04/20 06:22 Sodium 137.5 Potassium 3.8 Chloride 104 Carbon Dioxide 25 Anion Gap 9 BUN 11 Creatinine 0.65 Est GFR ( Amer) > 60 Glucose 145 H Calcium 9.1 Magnesium 2.2 Total Bilirubin 0.3 AST 30 Alkaline Phosphatase 117 Total Protein 5.9 L Albumin 3.6 03/03/20 03/03/20 03/03/20 10:14 10:14 10:14 Creatine Kinase 110 Troponin I < 0.012 NT-Pro-B Natriuret Pep 247 H Impressions: Chest X-Ray 03/03/20 10:16 IMPRESSION: No acute cardiopulmonary process. Assessment and Plan - Diagnosis (1) COPD exacerbation Is this a current diagnosis for this admission?: Yes Plan: Continue frequent duo nebs, budesonide and Solu-Medrol. I will give another day of nebulizer treatments and IV steroids. Hopefully her wheezing can improve tomorrow for potential discharge. (2) Nicotine dependence Qualifiers: Nicotine product type: other Substance use status: uncomplicated Qualified Code(s): F17.290 - Nicotine dependence, other tobacco product, unc omplicated Is this a current diagnosis for this admission?: Yes Plan: She previously smoked cigarettes and now admits to vaping. We will continue to encourage cessation and make a nicotine patch available. (3) Acute and chronic respiratory failure with hypoxia Is this a current diagnosis for this admission?: Yes Plan: Currently resolved at this time. She is doing well on room air. (4) Acute bronchitis Qualifiers: Bronchitis organism: unspecified organism Qualified Code(s): J20.9 - Acute bronchitis, unspecified Is this a current diagnosis for this admission?: Yes Plan: Receiving doxycycline. Will check sputum culture (5) Depression Qualifiers: Depression Type: unspecified Qualified Code(s): F32.9 - Major depressive disorder, single episode, unspecified Is this a current diagnosis for this admission?: Yes Plan: Continue fluoxetine - Time Time Spent with patient: Less than 15 minutes Anticipated Discharge Disposition: Home, Self Care Anticipated Discharge Timeframe: within 36 hours
[2020-03-04] MEDS: METHYLPREDNISOLONE INJ 40 MG/1 ML SDV IV SCH (21:25)
[2020-03-04] MEDS ORDERED: MELATONIN 5 MG TABLET PO SCH (22:00)
[2020-03-05] MEDS: IPRATROPIUM/ALBUTEROL 0.5-2.5 MG/3 ML AMPUL NEB SCH ×3 (02:33→13:50)
[2020-03-05] MEDS: GABAPENTIN 400 MG CAPSULE PO SCH (05:31)
[2020-03-05] MEDS: HEPARIN SOD (PORCINE) 5,000 UNIT/ML 1 ML VIAL SUBCUT SCH (05:32)
[2020-03-05] MEDS: BUDESONIDE NEB 0.5 MG/2 ML AMPUL NEB SCH (08:17)
[2020-03-05] MEDS: MELOXICAM 15 MG TABLET PO SCH (10:04)
[2020-03-05] MEDS: FLUOXETINE HCL 20 MG CAPSULE PO SCH (10:05)
[2020-03-05] MEDS: FAMOTIDINE 20 MG TABLET PO SCH (10:06)
[2020-03-05] MEDS: METHYLPREDNISOLONE INJ 40 MG/1 ML SDV IV SCH (10:06)
[2020-03-05] MEDS: MAGNESIUM OXIDE 400 MG TABLET PO SCH (10:06)
[2020-03-05] MEDS: DOXYCYCLINE HYCLATE 100 MG in DEXTROSE 5%-WATER 250 ML IV SCH (10:06)
--- NOTE | 2020-03-05 12:11 | PDOC DISCHARGE SUMMARY ---
Impression - Admit/DC Date/PCP Admission Date/Primary Care Provider: 03/03/20 15:34 YUMIKO SETHI Discharge Date: 03/05/20 - Discharge Diagnosis (1) COPD exacerbation Is this a current diagnosis for this admission?: Yes (2) Nicotine dependence Is this a current diagnosis for this admission?: Yes (3) Acute and chronic respiratory failure with hypoxia Is this a current diagnosis for this admission?: Yes (4) Acute bronchitis Is this a current diagnosis for this admission?: Yes (5) Depression Is this a current diagnosis for this admission?: Yes - Additional Information Resuscitation Status: Full Code Discharge Activity: Activity As Tolerated, Slowly Increase Activity Referrals: BRITTNEY YANEZ FNP [Primary Care Provider] - Follow up as needed Prescriptions: Prednisone [Deltasone 20 mg Tablet] 40 mg PO DAILY 3 Days #6 tablet Budesonide/Formoterol Fumarate [Symbicort Hfa 80-4.5 Mcg Inhaler 6.9 gm] 2 puff IH Q12 #2 inhaler Albuterol Sulfate [Ventolin 0.083% Neb 2.5 mg/3 mL Ampul] 2.5 mg NEB Q6HP PRN #60 mg PRN Reason: Doxycycline Hyclate [Vibramycin 100 mg Tablet] 100 mg PO BID 5 Days #10 tablet Home Medications: Fluoxetine HCl [Prozac] 80 mg PO QAM 01/31/20 Gabapentin [Neurontin] 800 mg PO TID 01/31/20 Meloxicam [Mobic] 15 mg PO DAILY 01/31/20 Albuterol Sulfate [Albuterol Sulfate Hfa] 1 puff IH Q4HP PRN 03/03/20 Benzonatate [Tessalon Perles 100 mg Capsule] 100 mg PO Q8HP PRN 03/03/20 Albuterol Sulfate [Ventolin 0.083% Neb 2.5 mg/3 mL Ampul] 2.5 mg NEB Q6HP PRN # 60 mg 03/05/20 Budesonide/Formoterol Fumarate [Symbicort Hfa 80-4.5 Mcg Inhaler 6.9 gm] 2 puff IH Q12 #2 inhaler 03/05/20 Doxycycline Hyclate [Vibramycin 100 mg Tablet] 100 mg PO BID 5 Days #10 tablet 03/05/20 Prednisone [Deltasone 20 mg Tablet] 40 mg PO DAILY 3 Days #6 tablet 03/05/20 History of Present Illiness History of Present Illness: According to admitting provider: ELIZABETH RAMIREZ is a 54 year old female who was just discharged from [facility] on February 05. She has a relatively new diagnosis of chronic obstructive pulmonary disease. She was discharged on a prednisone taper and was to complete a course of azithromycin. She reports waking up at approximately 2:30 AM and began coughing. She has been coughing consistently since then. She was back at work today on camp [employer] when she became acutely more short of breath. EMS was called. Oxygen saturation was 83% on room air. She was given nebulizer treatments and supplemental oxygen and she was above 90%. Upon arrival to the emergency department off of oxygen she dropped again to the mid 80s and so oxygen therapy was reestablished her white blood cell count is normal. Her platelet count is normal. Serum chemistries are unremarkable including her glucose. Her magnesium is just below the normal limit at 1.5 and the AST, ALT and alkaline phosphatase are minimally elevated. The patient will be admitted for an exacerbation of her COPD. She does also present with acute on chronic respiratory failure with hypoxia. She will be given antibiotic therapy for possible bronchitis associated with COPD. She will be given systemic steroids. She will receive nebulizer treatments and we will try and taper her from the oxygen. I am hoping that we can get her turned around and discharge in 24 to 48 hours. Hospital Course Hospital Course: Patient was admitted for COPD exacerbation. She was notably wheezing signi ficantly. She also has very tight cough frequently when talking. On initial presentation she was noted to be hypoxic. She was placed on nasal cannula. Chest x-ray was unimpressive for any pneumonia. She was started on treatment with frequent nebulizers, steroids and placed on doxycycline for acute bronchitis. Patient has also been counseled on the importance of stopping Vaping and its associated risks. Patient does continue to improve and her oxygen level has normalized now. Her respiratory failure has resolved. I had patient ambulate the hallway personally while watching her oxygen saturation and her SPO2 stayed within 96 to 99% on ambulation on room air. She has been on room air for the past 2 days now. She feels well and a lot better. Wheezing has improved to mild to minimal level. She still having some cough from her bronchitis. She will be discharged with a nebulizer and albuterol solution. I will also start patient on Symbicort for her COPD. Doxycycline given on d ischarge as well. Physical Exam Vital Signs: Temp Pulse Resp BP Pulse Ox 97.9 F 88 16 122/71 90 L 03/05/20 08:46 03/05/20 08:17 03/05/20 08:17 03/05/20 08:00 03/05/20 08:17 Intake & Output 03/04/20 03/05/20 03/06/20 06:59 06:59 06:59 Intake Total 1550 870 Balance 1550 870 Weight 55.6 kg 55.8 kg General appearance: PRESENT: no acute distress, cooperative, hard of hearing Neck exam: ABSENT: JVD Respiratory exam: PRESENT: symmetrical, unlabored, wheezes - minimal. ABSENT: accessory muscle use, crackles, retraction, tachypnea Musculoskeletal exam: PRESENT: ambulatory Neurological exam: PRESENT: alert, awake, oriented to person, oriented to place, oriented to time Results Laboratory Results: WBC 9.4 10^3/uL (4.0-10.5) 03/03/20 10:14 RBC 3.92 10^6/uL (3.72-5.28) 03/03/20 10:14 Hgb 13.5 g/dL (12.0-15.5) 03/03/20 10:14 Hct 38.7 % (36.0-47.0) 03/03/20 10:14 MCV 99 fl (80-97) H 03/03/20 10:14 MCH 34.3 pg (27.0-33.4) H 03/03/20 10:14 MCHC 34.8 g/dL (32.0-36.0) 03/03/20 10:14 RDW 12.8 % (11.5-14.0) 03/03/20 10:14 Plt Count 242 10^3/uL (150-450) 03/03/20 10:14 Lymph % (Auto) Not Reportable 03/03/20 10:14 [place] % (Auto) Not Reportable 03/03/20 10:14 Eos % (Auto) Not Reportable 03/03/20 10:14 Baso % (Auto) Not Reportable 03/03/20 10:14 Absolute Neuts (auto) Not Reportable 03/03/20 10:14 Absolute Lymphs (auto) Not Reportable 03/03/20 10:14 Absolute Monos (auto) Not Reportable 03/03/20 10:14 Absolute Eos (auto) Not Reportable 03/03/20 10:14 Absolute Basos (auto) Not Reportable 03/03/20 10:14 Total Counted 100 03/03/20 10:14 Seg Neutrophils % Not Reportable 03/03/20 10:14 Seg Neuts % (Manual) 83 % (42-78) H 03/03/20 10:14 Lymphocytes % (Manual) 5 % (13-45) L 03/03/20 10:14 Monocytes % (Manual) 7 % (3-13) 03/03/20 10:14 Eosinophils % (Manual) 4 % (0-6) 03/03/20 10:14 Basophils % (Manual) 1 % (0-2) 03/03/20 10:14 Abs Neuts (Manual) 7.8 10^3/uL (1.7-8.2) 03/03/20 10:14 Abs Lymphs (Manual) 0.5 10^3/uL (0.5-4.7) 03/03/20 10:14 Abs Monocytes (Manual) 0.7 10^3/uL (0.1-1.4) 03/03/20 10:14 Absolute Eos (Manual) 0.4 10^3/uL (0.0-0.6) 03/03/20 10:14 Abs Basophils (Manual) 0.1 10^3/uL (0.0-0.2) 03/03/20 10:14 Toxic Granulation 1+ 03/03/20 10:14 Platelet Comment ADEQUATE 03/03/20 10:14 RBC Morph Comment NORMO-CYTIC/CHROMIC 03/03/20 10:14 Sodium 137.5 mmol/L (137-145) 03/04/20 06:22 Potassium 3.8 mmol/L (3.6-5.0) 03/04/20 06:22 Chloride 104 mmol/L (98-107) 03/04/20 06:22 Carbon Dioxide 25 mmol/L (22-30) 03/04/20 06:22 Anion Gap 9 (5-19) 03/04/20 06:22 BUN 11 mg/dL (7-20) 03/04/20 06:22 Creatinine 0.65 mg/dL (0.52-1.25) 03/04/20 06:22 Est GFR ( Amer) > 60 (>60) 03/04/20 06:22 Est GFR (MDRD) Non-Af > 60 (>60) 03/04/20 06:22 Glucose 145 mg/dL (75-110) H 03/04/20 06:22 Calcium 9.1 mg/dL (8.4-10.2) 03/04/20 06:22 Magnesium 2.2 mg/dL (1.6-2.3) 03/04/20 06:22 Total Bilirubin 0.3 mg/dL (0.2-1.3) 03/04/20 06:22 Direct Bilirubin 0.2 mg/dL (0.0-0.4) 03/04/20 06:22 Neonat Total Bilirubin Not Reportable 03/04/20 06:22 Neonat Direct Bilirubin Not Reportable 03/04/20 06:22 Neonat Indirect Bili Not Reportable 03/04/20 06:22 AST 30 U/L (14-36) 03/04/20 06:22 ALT 52 U/L (<35) H 03/04/20 06:22 Alkaline Phosphatase 117 U/L (38-126) 03/04/20 06:22 Creatine Kinase 110 U/L (30-135) 03/03/20 10:14 Troponin I < 0.012 ng/mL 03/03/20 10:14 NT-Pro-B Natriuret Pep 247 pg/mL (<125) H 03/03/20 10:14 Total Protein 5.9 g/dL (6.3-8.2) L 03/04/20 06:22 Albumin 3.6 g/dL (3.5-5.0) 03/04/20 06:22 Urine Color YELLOW 03/03/20 13:45 Urine Appearance SLIGHTLY-CLOUDY 03/03/20 13:45 Urine pH 5.0 (5.0-9.0) 03/03/20 13:45 Ur Specific [place] 1.010 03/03/20 13:45 Urine Protein NEGATIVE mg/dL (NEGATIVE) 03/03/20 13:45 Urine Glucose (UA) NEGATIVE mg/dL (NEGATIVE) 03/03/20 13:45 Urine Ketones TRACE mg/dL (NEGATIVE) H 03/03/20 13:45 Urine Blood NEGATIVE (NEGATIVE) 03/03/20 13:45 Urine Nitrite NEGATIVE (NEGATIVE) 03/03/20 13:45 Urine Bilirubin NEGATIVE (NEGATIVE) 03/03/20 13:45 Urine Urobilinogen NEGATIVE mg/dL (<2.0) 03/03/20 13:45 Ur Leukocyte Esterase NEGATIVE (NEGATIVE) 03/03/20 13:45 Urine WBC (Auto) 12 /HPF 03/03/20 13:45 Urine RBC (Auto) 1 /HPF 03/03/20 13:45 U Hyaline Cast (Auto) 14 /LPF 03/03/20 13:45 Squamous Epi Cells Auto 4 /HPF 03/03/20 13:45 Urine Mucus (Auto) OCC /LPF 03/03/20 13:45 Urine Ascorbic Acid NEGATIVE (NEGATIVE) 03/03/20 13:45 03/03/20 03/03/20 10:14 10:14 Troponin I < 0.012 NT-Pro-B Natriuret Pep 247 H Impressions: Chest X-Ray 03/03/20 10:16 IMPRESSION: No acute cardiopulmonary process. Plan Time Spent: Less than 30 Minutes Stroke Is this a Stroke Patient?: No Acute Heart Failure - Is this a Heart Failure Patient?: No
[2020-03-05 13:01] VITALS: BP 122/71
== END 2020-03-05 13:53 | disposition home or self-care (01) ==
LOC: ER 09:57 → INTOOBSV 15:34 → EH 15:34 → 4S 18:13
PROVIDERS: ADMIT Hospitalist; ATTEND Hospitalist
DX: J44.1 Chronic obstructive pulmonary disease with (acute) exacerbation (principal); J20.9 Acute bronchitis, unspecified; J44.0 Chronic obstructive pulmonary disease with (acute) lower respiratory infection; J96.21 Acute and chronic respiratory failure with hypoxia; F32.9 Major depressive disorder, single episode, unspecified; H91.90 Unspecified hearing loss, unspecified ear; E83.42 Hypomagnesemia; G62.9 Polyneuropathy, unspecified; M19.90 Unspecified osteoarthritis, unspecified site; F17.290 Nicotine dependence, other tobacco product, uncomplicated; Z79.899 Other long term (current) drug therapy; Z79.1 Long term (current) use of non-steroidal anti-inflammatories (NSAID); Z82.49 Family history of ischemic heart disease and other diseases of the circulatory system
CPT/HCPCS: 93005; 94640 ×5; 99291; 96375; 96365; 96367; 36415 ×2; 87070; 87205; 82550; 83735 ×2; 85025; 80053 ×2; 81001; 84484; 83880; 71045; 93010; 99406; J1644 ×3; J3490 ×8; J2920 ×2; J2930; J3475; J7060 ×3; J7030; J7613; G0378

== ENCOUNTER 2020-03-14 09:46 | Inpatient (IN) | payer BC ==
[2020-03-14] MEDS ORDERED: ALBUTEROL SULFATE 0.083% NEB 2.5 MG/3 ML AMPUL NEB ONE (09:57)
[2020-03-14] MEDS ORDERED: NORMAL SALINE 1000 ML 1,000 ML IV ONE (09:59)
--- NOTE | 2020-03-14 10:03 | ER Document Report ---
ED Respiratory Problem - General Chief Complaint: Shortness Of Breath Stated Complaint: SHORTNESS OF BREATH Time Seen by Provider: 03/14/20 09:48 Primary Care Provider: BRITTNEY YANEZ FNP [Primary Care Provider] - Follow up as needed Notes: HPI: 54-year-old female that presents today with EMS secondary to some worsening shortness of breath over last night into this morning. Patient has a history of COPD with admission and discharge on February 05 and March 05 for similar complaints. They state that the patient was combative and hypoxic. They provided 2 nebulizers, steroids, and 2 g of magnesium intravenously. They were unable to apply the BiPAP equipment unable to obtain an IV. They state that the patient was combative and confused so they did provide 2 mg of Ativan. ROS: See HPI Unable to obtain secondary to patient's condition Reviewed vital signs and nursing note as charted by RN. PHYSICAL EXAM: CONSTITUTIONAL: Alert and is following commands; obvious tachypnea and respiratory distress HEAD: Normocephalic; atraumatic EYES: PERRL; Conjunctivae clear, sclerae non-icteric ENT: Normal nose; no rhinorrhea; moist mucous membranes; pharynx without lesions noted NECK: Supple without meningismus; non-tender; no cervical lymphadenopathy, no masses CARD: Tachycardic and regular; no murmurs; symmetric distal pulses RESP: He is tachypnea with bilateral wheezing without any rhonchi or rales appreciated ABD/GI: Normal bowel sounds; non-distended; soft, non-tender; no palpable organomegaly or masses BACK: The back appears normal and is non-tender to palpation EXT: Normal ROM in all joints; non-tender to palpation; no edema SKIN: No acute lesions noted CN: Patient is moving all 4 extremities TRAVEL OUTSIDE OF THE [place] IN LAST 30 DAYS: No - Related Data Allergies/Adverse Reactions: No Known Allergies Allergy (Verified 03/14/20 10:23) Past Medical History - Social History Smoking Status: Unknown if Ever Smoked Family History: Reviewed & Not Pertinent - Past Medical History Cardiac Medical History: Denies: Hx Congestive Heart Failure, Hx Coronary Artery Disease, Hx Heart Attack Pulmonary Medical History: Reports: Hx COPD Endocrine Medical History: Reports: Hx Diabetes Mellitus Type 2 - with neuropathy. Denies: Hx Hypothyroidism Renal/ Medical History: Denies: Hx Peritoneal Dialysis GI Medical History: Denies: Hx Diverticulitis, Hx Gastroesophageal Reflux Disea se, Hx Hiatal Hernia Musculoskeletal Medical History: Reports Hx Arthritis Psychiatric Medical History: Reports: Hx Depression Past Surgical History: Reports: Hx Section Physical Exam - Vital signs Vitals: Temp Resp Pulse Ox 97 F L 28 H 86 L 03/14/20 09:48 03/14/20 09:48 03/14/20 09:48 Course - Re-evaluation Re-evalutation: Given the above history and physical we will place the patient on BiPAP, obtain a portable x-ray of the chest, cardiac work-up, provide a continuous albuterol nebulizer, and an ABG. I would like to assess for the possibility of acute h ypercapnia, pneumonia, or coronavirus 19 infection. Given the patient's history with wheezing bilaterally, with 2 admissions previously for similar presentation, I do believe PE and dissection to be unlikely. Patient has no history of heart failure. I do believe that the patient is having a lot of insensate loss. I will provide a liter of fluid. 03/14/20 10:03 EKG shows a heart of 118, sinus tachycardia, normal axis, no ST elevation or depression. 03/14/20 11:31 Patient is more responsive. ABG as recorded. X-ray shows no obvious pneumonia. Breathing is improved. Patient is extraordinarily hard of hearing but if you talk into her ear she awakes and nods that she is feeling better. Patient will be admitted to the [facility] for further evaluation and treatment. - Vital Signs Vital signs: Temp Pulse Resp BP Pulse Ox 97 F L 20 93/60 L 100 03/14/20 10:18 03/14/20 11:01 03/14/20 11:00 03/14/20 11:01 - Laboratory Result Diagrams: 03/14/20 10:00 03/14/20 10:00 Laboratory results interpreted by me: 03/14/20 03/14/20 03/14/20 10:00 10:00 10:00 WBC 21.1 H MCV 100 H MCH 34.2 H Seg Neuts % (Manual) 84 H Band Neutrophils % 2 L Lymphocytes % (Manual) 4 L Abs Neuts (Manual) 18.1 H Absolute Eos (Manual) 1.1 H Carbonic Acid 1.60 H ABG pH 7.29 L ABG pCO2 53.0 H ABG pO2 129.9 H ABG HCO3 25.1 H ABG Total CO2 26.7 H ABG O2 Saturation 98.2 H Glucose 182 H Critical Care Note - Critical Care Note Total time excluding time spent on procedures (mins): 45 Discharge - Discharge Clinical Impression: Acute respiratory distress, COPD with acute exacerbation, Hypoxia Condition: Serious Disposition: ADMITTED INPATIENT Admitting Provider: Alfredo (Hospitalist) Unit Admitted: [facility] Referrals: BRITTNEY YANEZ FNP [Primary Care Provider] - Follow up as needed
[2020-03-14 10:24] LABS: ARTERIAL BLOOD BASE EXCESS -2.2 mmol/L; ARTERIAL BLOOD HCO3 25.1 mmol/L (20-24); ARTERIAL BLOOD O2 SATURATION 98.2 % (94-98); ARTERIAL BLOOD PH 7.29 (7.35-7.45); ARTERIAL BLOOD PO2 129.9 mmHg (80-100); ARTERIAL BLOOD TOTAL CO2 26.7 mmol/L (21-25)
[2020-03-14 10:25] LABS: ARTERIAL BLOOD FIO2 40
[2020-03-14 10:27] LABS: HEMATOCRIT 41.7 % (36.0-47.0); HEMOGLOBIN 14.3 g/dL (12.0-15.5); MEAN CORPUSCULAR HEMOGLOBIN 34.2 pg (27.0-33.4); MEAN CORPUSCULAR HGB CONC 34.2 g/dL (32.0-36.0); MEAN CORPUSCULAR VOLUME 100 fl (80-97); PLATELET COUNT 311 10^3/uL (150-450); RED BLOOD COUNT 4.17 10^6/uL (3.72-5.28); RED CELL DISTRIBUTION WIDTH 12.7 % (11.5-14.0); WHITE BLOOD COUNT 21.1 10^3/uL (4.0-10.5)
[2020-03-14 10:42] LABS: ANION GAP 9 (5-19); BLOOD UREA NITROGEN 11 mg/dL (7-20); CALCIUM 9.2 mg/dL (8.4-10.2); CARBON DIOXIDE 27 mmol/L (22-30); CHLORIDE 103 mmol/L (98-107); GLUCOSE 182 mg/dL (75-110)
[2020-03-14 10:44] LABS: POTASSIUM 3.8 mmol/L (3.6-5.0)
--- NOTE | 2020-03-14 10:48 | RADIOLOGY REPORT (SQ) ---
EXAM DESCRIPTION: CHEST SINGLE VIEW IMAGES COMPLETED DATE/TIME: 03/14/2020 10:21 am REASON FOR STUDY: 10; SOB COMPARISON: 03/03/2020 EXAM PARAMETERS: NUMBER OF VIEWS: One view. TECHNIQUE: Single frontal radiographic view of the chest acquired. RADIATION DOSE: NA LIMITATIONS: None. FINDINGS: LUNGS AND PLEURA: No opacities, masses or pneumothorax. No pleural effusion. MEDIASTINUM AND HILAR STRUCTURES: No masses. Contour normal. HEART AND VASCULAR STRUCTURES: Heart normal in size. Normal vasculature. BONES: No acute findings. HARDWARE: None in the chest. OTHER: No other significant finding. IMPRESSION: NO ACUTE RADIOGRAPHIC FINDING IN THE CHEST. TECHNICAL DOCUMENTATION: JOB ID: [id number] [email or web address] All Rights Reserved Reading location - IP/workstation name: [email or web address]
[2020-03-14 10:56] LABS: ABSOLUTE LYMPHOCYTES# (MANUAL) 1.3 10^3/uL (0.5-4.7); ABSOLUTE MONOCYTES # (MANUAL) 0.6 10^3/uL (0.1-1.4); BAND NEUTROPHILS % (MANUAL) 2 % (3-5); BASOPHILS % (MANUAL) 0 % (0-2); EOSINOPHILS % (MANUAL) 5 % (0-6); LYMPHOCYTES % (MANUAL) 4 % (13-45); MONOCYTES % (MANUAL) 3 % (3-13); SEGMENTED NEUTROPHILS % (MAN) 84 % (42-78); TOTAL CELLS COUNTED 100
[2020-03-14 11:03] LABS: OVALOCYTES 1+; PLATELET COMMENT ADEQUATE; POIKILOCYTOSIS 1+
[2020-03-14] MEDS ORDERED: AZITHROMYCIN INJ 500 MG VIAL IV ONE (11:11)
[2020-03-14] MEDS ORDERED: CEFTRIAXONE 1 GM/D5W RTU 1 GM/50 ML RTUPB IV ONE (11:11)
--- NOTE | 2020-03-14 11:13 | EKG REPORT ---
SEVERITY:- BORDERLINE ECG - SINUS TACHYCARDIA PROBABLE LEFT ATRIAL ABNORMALITY : Confirmed by: Tylor Arguello MD 14-Mar-2020 11:13:11
[2020-03-14] MEDS ORDERED: MAG HYDROX/AL HYDROX/SIMETH SUSP 30 ML UDCUP PO PRN (12:50)
[2020-03-14] MEDS ORDERED: ALBUTEROL SULFATE 0.083% NEB 2.5 MG/3 ML AMPUL NEB PRN (12:50)
[2020-03-14] MEDS ORDERED: ONDANSETRON HCL INJ/PF 4 MG/2 ML SDV IV PRN (12:50)
--- NOTE | 2020-03-14 13:04 | PDOC H&P ---
History of Present Illness Admission Date/PCP: 03/14/20 12:11 YUMIKO SETHI Patient complains of: Shortness of breath History of Present Illness: ELIZABETH RAMIREZ is a 54 year old female with history of recently diagnosed COPD and recent hospitalization for COPD exacerbation, who presents to the hospital once again after recent discharge with similar complaints of shortness of breath and notably was respiratory distress. Patient states that since her recent discharge, she was doing well in terms of the breathing but subsequently worsened. This morning, she notably could not catch her breath. Her cough has persisted. She also continues to vape. She denies any fever or chills or abdominal pain. She denies any wounds. She did complete the prednisone which she was discharged with for 3 days. She has also received a nebulizer and has been using her nebulizer treatments. In the ER, she was noted to be hypoxic and with significant wheezing and notably in distress and subsequently placed on BiPAP. ABG showed hypercapnic respiratory failure. Past Medical History Cardiac Medical History: Denies: Congestive Heart Failure, Coronary Artery Disease, Myocardial Infarction Pulmonary Medical History: Reports: Chronic Obstructive Pulmonary Disease (COPD) Endocrine Medical History: Reports: Diabetes Mellitus Type 2 - with neuropathy Denies: Hypothyroidism GI Medical History: Denies: Diverticulitis, Gastroesophageal Reflux Disease, Hiatal Hernia Musculoskeltal Medical History: Reports: Arthritis Psychiatric Medical History: Reports: Depression Hematology: Denies: Anemia, Bleeding Tendencies Past Surgical History Past Surgical History: Reports: Section Social History Smoking Status: Unknown if Ever Smoked Frequency of Alcohol Use: None Hx Recreational Drug Use: Yes Drugs: None Hx Prescription Drug Abuse: No - Advance Directive Resuscitation Status: Full Code Family History Family History: Hypertension Parental Family History Reviewed: Yes Children Family History Reviewed: Unknown Sibling(s) Family History Reviewed.: Unknown Medication/Allergy Home Medications: Fluoxetine HCl [Prozac] 80 mg PO QAM 01/31/20 Gabapentin [Neurontin] 800 mg PO TID 01/31/20 Meloxicam [Mobic] 15 mg PO DAILY 01/31/20 Albuterol Sulfate [Albuterol Sulfate Hfa] 1 puff IH Q4HP PRN 03/03/20 Benzonatate [Tessalon Perles 100 mg Capsule] 100 mg PO Q8HP PRN 03/03/20 Albuterol Sulfate [Ventolin 0.083% Neb 2.5 mg/3 mL Ampul] 2.5 mg NEB Q6HP PRN #60 mg 03/05/20 Budesonide/Formoterol Fumarate [Symbicort Hfa 80-4.5 Mcg Inhaler 6.9 gm] 2 puff IH Q12 #2 inhaler 03/05/20 Doxycycline Hyclate [Vibramycin 100 mg Tablet] 100 mg PO BID 5 Days #10 tablet 03/05/20 Prednisone [Deltasone 20 mg Tablet] 40 mg PO DAILY 3 Days #6 tablet 03/05/20 Allergies/Adverse Reactions: No Known Allergies Allergy (Verified 03/14/20 10:23) Review of Systems Constitutional: ABSENT: chills, fever(s) Eyes: ABSENT: visual disturbances Ears: PRESENT: hearing changes - Nonacute but she is very hard of hearing Nose, Mouth, and Throat: ABSENT: headache(s) Cardiovascular: ABSENT: chest pain Respiratory: PRESENT: cough, dyspnea Gastrointestinal: ABSENT: abdominal pain, diarrhea, nausea, vomiting Genitourinary: ABSENT: dysuria Integumentary: ABSENT: diaphoresis Neurological: ABSENT: dizziness Psychiatric: PRESENT: anxiety Endocrine: ABSENT: cold intolerance Allergic/Immunologic: ABSENT: seasonal rhinorrhea Physical Exam Vital Signs: Temp Pulse Resp BP Pulse Ox 97 F L 22 H 116/86 H 98 03/14/20 10:18 03/14/20 12:30 03/14/20 12:30 03/14/20 12:39 Intake & Output 03/13/20 03/14/20 03/15/20 06:59 06:59 06:59 Intake Total 1300 Balance 1300 Weight 54 kg General appearance: PRESENT: no acute distress, cooperative Head exam: PRESENT: normocephalic Neck exam: ABSENT: JVD Respiratory exam: PRESENT: symmetrical, unlabored, wheezes - Very mild. ABSENT: accessory muscle use, stridor, tachypnea Cardiovascular exam: PRESENT: RRR, +S1, +S2. ABSENT: tachycardia GI/Abdominal exam: PRESENT: soft. ABSENT: ascites, rebound, rigid, tenderness Extremities exam: ABSENT: calf tenderness Neurological exam: PRESENT: alert, awake Psychiatric exam: ABSENT: agitated, anxious Focused psych exam: ABSENT: pressured speech Skin exam: ABSENT: jaundice Results Laboratory Results: 03/14/20 10:00 03/14/20 10:00 03/14/20 03/14/20 03/14/20 10:00 10:00 10:00 WBC 21.1 H RBC 4.17 Hgb 14.3 Hct 41.7 MCV 100 H MCH 34.2 H MCHC 34.2 RDW 12.7 Plt Count 311 Seg Neutrophils % Not Reportable Carbonic Acid 1.60 H HCO3/H2CO3 Ratio 15:1 ABG pH 7.29 L ABG pCO2 53.0 H ABG pO2 129.9 H ABG HCO3 25.1 H ABG O2 Saturation 98.2 H ABG Base Excess -2.2 FiO2 40 Sodium 138.8 Potassium 3.8 Chloride 103 Carbon Dioxide 27 Anion Gap 9 BUN 11 Creatinine 0.69 Est GFR ( Amer) > 60 Glucose 182 H Calcium 9.2 03/14/20 10:00 Troponin I < 0.012 Impressions: Chest X-Ray 03/14/20 09:55 IMPRESSION: NO ACUTE RADIOGRAPHIC FINDING IN THE CHEST. Assessment and Plan - Diagnosis (1) COPD exacerbation Is this a current diagnosis for this admission?: Yes Plan: Recurrent COPD exacerbations requiring hospitalizations over the past 2 months. Placed on duo nebs every 4 hours, Pulmicort nebulizer and start Solu-Medrol. Has recently completed courses of azithromycin and doxycycline over the past 1.5 months for COPD exacerbation as well. Monitor closely (2) Acute respiratory failure with hypoxia and hypercapnia Is this a current diagnosis for this admission?: Yes Plan: Secondary to COPD exacerbation. Currently on BiPAP after notably being hypercapnic with respiratory acidosis. Was also hypoxic at 86% on room air on presentation. Continue BiPAP therapy and repeat ABG now. We will try to wean off BiPAP later on in the day. (3) Nicotine dependence Qualifiers: Nicotine product type: other Substance use status: uncomplicated Qualified Code(s): F17.290 - Nicotine dependence, other tobacco product, uncomplicated Is this a current diagnosis for this admission?: Yes Plan: NicoDerm patch will be offered. Patient has been significantly cautioned against continuation of Vaping. (4) Leukocytosis Qualifiers: Leukocytosis type: bandemia Qualified Code(s): D72.825 - Bandemia Is this a current diagnosis for this admission?: Yes Plan: Leukocytosis quite significant at 21,000. She was on prednisone on discharge which she took for 3 days. Has received antibiotics in the ER. Check urinalysis and urine culture. Monitor for signs or evidence of infection. - Time Time Spent with patient: 35 or more minutes Anticipated Discharge Disposition: Home, Self Care Anticipated Discharge Timeframe: within 72 hours
[2020-03-14 14:23] LABS: ARTERIAL BLOOD BASE EXCESS -2.1 mmol/L; ARTERIAL BLOOD H2CO3 1.35 mmol/L (1.05-1.35); ARTERIAL BLOOD HCO3 23.7 mmol/L (20-24); ARTERIAL BLOOD O2 SATURATION 97.4 % (94-98); ARTERIAL BLOOD PCO2 44.8 mmHg (35-45); ARTERIAL BLOOD PH 7.34 (7.35-7.45); ARTERIAL BLOOD PO2 102.5 mmHg (80-100); ARTERIAL BLOOD TOTAL CO2 25.1 mmol/L (21-25)
[2020-03-14 14:31] LABS: ARTERIAL BLOOD FIO2 40%
--- NOTE | 2020-03-14 15:18 | RADIOLOGY REPORT (SQ) ---
EXAM DESCRIPTION: CTA CHEST IMAGES COMPLETED DATE/TIME: 03/14/2020 2:59 pm REASON FOR STUDY: very frequent copd exacerbations. Hypoxia, SOB COMPARISON: None. TECHNIQUE: CT scan of the chest performed using helical scanning technique with dynamic intravenous contrast injection. Images reviewed with lung, soft tissue and bone windows. Reconstructed coronal and sagittal MPR images reviewed. Additional 3 dimensional post-processing performed to develop Maximal Intensity Projection images (ME P). All images stored on PACS. All CT scanners at this facility use dose modulation, iterative reconstruction, and/or weight based d osing when appropriate to reduce radiation dose to as low as reasonably achievable (ALARA). [facility]: Dose Right [facility]: CareDose [facility]: Dose Right [facility]: Teradose 4D [facility]: [employer] CONTRAST TYPE AND DOSE: contrast/concentration: Isovue 350.00 mmol/ml; Total Contrast Delivered: 50. 0 ml; Total Saline Delivered: 70.0 ml Contrast bolus adequate for pulmonary arteries and aorta. RENAL FUNCTION: BUN 11 creatinine 0.69 RADIATION DOSE: CT Rad equipment meets quality standard of care and radiation dose reduction technClearwell Systems ues were employed. CTDIvol: 6.6 - 14.3 mGy. DLP: 471 mGy-cm. . LIMITATIONS: Less than optimal opacification of the pulmonary arteries. FINDINGS: LUNGS AND PLEURA: There are peripheral areas of ground-glass infiltrate in both lungs. No pulmonary mass. No pleural effusion. AORTA AND GREAT VESSELS: No aneurysm. No dissection. HEART: No pericardial effusion. No significant coronary artery calcifications. PULMONARY ARTERIES: No major or central pulmonary emboli are seen. HILAR AND MEDIASTINAL STRUCTURES: There are some mediastinal nodes. There is a pretracheal node that measures 9 mm. HARDWARE: None in the chest. UPPER ABDOMEN: No significant findings. Limited exam. THYROID AND OTHER SOFT TISSUES: No masses. No adenopathy. BONES: No acute or significant finding. 3D MIPS: Confirm above findings. OTHER: No other significant finding. IMPRESSION: 1. Slightly limited study. No major or central pulmonary emboli are seen. There is no aortic aneurysm or dissection. 2. There are peripheral areas of ground-glass infiltrate in both lungs concerning for an atypical in fectious/ inflammatory process. 3. There are some nonspecific mediastinal lymph nodes. COMMENT: Quality ID # [id number]: Final reports with documentation of one or more dose reduction techniques (e.g., Automated exposure control, adjustment of the mA and/or kV according to patient size, use of iterative reconstruction technique) TECHNICAL DOCUMENTATION: JOB ID: [id number] 2010 [employer]- All Rights Reserved Reading location - IP/workstation name: [email or web address]
[2020-03-14] MEDS: NICOTINE 14 MG/24 HR PATCH.TD24 TD SCH (16:13)
[2020-03-14] MEDS: IPRATROPIUM/ALBUTEROL 0.5-2.5 MG/3 ML AMPUL NEB SCH ×2 (16:32→21:21)
[2020-03-14] MEDS: BUDESONIDE NEB 0.25 MG/2 ML AMPUL NEB SCH (21:21)
[2020-03-14] MEDS: FAMOTIDINE 20 MG TABLET PO SCH (22:02)
[2020-03-14] MEDS: GABAPENTIN 400 MG CAPSULE PO SCH (22:02)
[2020-03-14] MEDS: METHYLPREDNISOLONE INJ 40 MG/1 ML SDV IV SCH (22:02)
[2020-03-15] MEDS: IPRATROPIUM/ALBUTEROL 0.5-2.5 MG/3 ML AMPUL NEB SCH ×7 (00:22→23:46)
[2020-03-15] MEDS: GABAPENTIN 400 MG CAPSULE PO SCH ×3 (05:10→21:47)
[2020-03-15] MEDS: ACETAMINOPHEN 325 MG TABLET PO PRN ×2 (05:21→20:19)
[2020-03-15 06:01] LABS: VENOUS BLOOD HCO3 27.9 mmol/L (20-32); VENOUS BLOOD PH 7.37 (7.30-7.42)
[2020-03-15 06:02] LABS: ABSOLUTE EOSINOPHILS # (AUTO) 0.2 10^3/uL (0.0-0.6); ABSOLUTE LYMPHOCYTES (AUTO) 0.9 10^3/uL (0.5-4.7); ABSOLUTE MONOCYTES (AUTO) 0.3 10^3/uL (0.1-1.4); ABSOLUTE NEUT (AUTO) 13.5 10^3/uL (1.7-8.2); BASOPHILS % (AUTO) 0.3 % (0-2); EOSINOPHILS % (AUTO) 1.2 % (0-6); HEMATOCRIT 38.3 % (36.0-47.0); HEMOGLOBIN 13.1 g/dL (12.0-15.5); LYMPHOCYTES % (AUTO) 5.8 % (13-45); MEAN CORPUSCULAR HEMOGLOBIN 33.9 pg (27.0-33.4); MEAN CORPUSCULAR HGB CONC 34.3 g/dL (32.0-36.0); MEAN CORPUSCULAR VOLUME 99 fl (80-97); MONOCYTES % (AUTO) 2.3 % (3-13); PLATELET COUNT 286 10^3/uL (150-450); RED BLOOD COUNT 3.86 10^6/uL (3.72-5.28); RED CELL DISTRIBUTION WIDTH 13.1 % (11.5-14.0); SEGMENTED NEUTROPHILS % (AUTO) 90.4 % (42-78); TOTAL CELLS COUNTED % (AUTO) 100 %; WHITE BLOOD COUNT 14.9 10^3/uL (4.0-10.5)
[2020-03-15 06:24] LABS: ANION GAP 7 (5-19); BLOOD UREA NITROGEN 8 mg/dL (7-20); CALCIUM 9.2 mg/dL (8.4-10.2); CARBON DIOXIDE 29 mmol/L (22-30); CHLORIDE 105 mmol/L (98-107); GLUCOSE 149 mg/dL (75-110); PHOSPHORUS 2.3 mg/dL (2.5-4.5); POTASSIUM 4.6 mmol/L (3.6-5.0)
[2020-03-15] MEDS ORDERED: PHOSPHORUS #1 250 MG TABLET PO ONE (08:30)
[2020-03-15] MEDS: BUDESONIDE NEB 0.25 MG/2 ML AMPUL NEB SCH ×2 (08:41→20:42)
[2020-03-15] MEDS: ENOXAPARIN SODIUM INJ 40 MG/0.4 ML DISP.SYRIN SUBCUT SCH (09:47)
[2020-03-15] MEDS: FAMOTIDINE 20 MG TABLET PO SCH ×2 (09:48→21:47)
[2020-03-15] MEDS: NICOTINE 14 MG/24 HR PATCH.TD24 TD SCH (09:48)
[2020-03-15] MEDS: FLUOXETINE HCL 20 MG CAPSULE PO SCH (09:48)
[2020-03-15] MEDS: MELOXICAM 15 MG TABLET PO SCH (09:48)
[2020-03-15] MEDS: METHYLPREDNISOLONE INJ 40 MG/1 ML SDV IV SCH ×2 (10:01→21:48)
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
[2020-03-15] MEDS ORDERED: LEVOFLOXACIN 750 MG TABLET PO ONE (16:15)
[2020-03-15] MEDS ORDERED: GUAIFENESIN SYRP 200 MG/10 ML UDC PO PRN (17:12)
[2020-03-15] MEDS: MELATONIN 3 MG TABLET PO SCH (21:46)
[2020-03-15] MEDS: LEVOFLOXACIN 750 MG TABLET PO SCH (21:47)
[2020-03-16] MEDS: IPRATROPIUM/ALBUTEROL 0.5-2.5 MG/3 ML AMPUL NEB SCH ×3 (04:08→15:54)
[2020-03-16] MEDS: ACETAMINOPHEN 325 MG TABLET PO PRN ×2 (04:26→14:20)
[2020-03-16 05:21] LABS: ABSOLUTE LYMPHOCYTES (AUTO) 0.8 10^3/uL (0.5-4.7); ABSOLUTE MONOCYTES (AUTO) 0.3 10^3/uL (0.1-1.4); ABSOLUTE NEUT (AUTO) 11.3 10^3/uL (1.7-8.2); BASOPHILS % (AUTO) 0.3 % (0-2); EOSINOPHILS % (AUTO) 0.2 % (0-6); HEMATOCRIT 38.1 % (36.0-47.0); HEMOGLOBIN 12.9 g/dL (12.0-15.5); LYMPHOCYTES % (AUTO) 6.7 % (13-45); MEAN CORPUSCULAR HEMOGLOBIN 33.9 pg (27.0-33.4); MEAN CORPUSCULAR HGB CONC 33.8 g/dL (32.0-36.0); MEAN CORPUSCULAR VOLUME 100 fl (80-97); MONOCYTES % (AUTO) 2.4 % (3-13); PLATELET COUNT 303 10^3/uL (150-450); RED CELL DISTRIBUTION WIDTH 12.9 % (11.5-14.0); SEGMENTED NEUTROPHILS % (AUTO) 90.4 % (42-78); TOTAL CELLS COUNTED % (AUTO) 100 %; WHITE BLOOD COUNT 12.5 10^3/uL (4.0-10.5)
[2020-03-16] MEDS: GABAPENTIN 400 MG CAPSULE PO SCH ×3 (05:58→21:25)
[2020-03-16] MEDS: BUDESONIDE NEB 0.25 MG/2 ML AMPUL NEB SCH ×2 (08:35→19:28)
[2020-03-16] MEDS: FAMOTIDINE 20 MG TABLET PO SCH ×2 (08:59→21:26)
[2020-03-16] MEDS: ENOXAPARIN SODIUM INJ 40 MG/0.4 ML DISP.SYRIN SUBCUT SCH (08:59)
[2020-03-16] MEDS: FLUOXETINE HCL 20 MG CAPSULE PO SCH (08:59)
[2020-03-16] MEDS: MELOXICAM 15 MG TABLET PO SCH (08:59)
[2020-03-16] MEDS: NICOTINE 14 MG/24 HR PATCH.TD24 TD SCH (08:59)
[2020-03-16 09:00] LABS: APPEARANCE,URINE CLEAR; BILIRUBIN,URINE NEGATIVE (NEGATIVE); COLOR,URINE YELLOW; GLUCOSE, URINE NEGATIVE (NEGATIVE); KETONES,URINE NEGATIVE (NEGATIVE); PROTEIN,URINE NEGATIVE (NEGATIVE); URINE SPECIFIC GRAVITY 1.015; UROBILINOGEN,URINE NEGATIVE mg/dL (<2.0)
[2020-03-16] MEDS: METHYLPREDNISOLONE INJ 40 MG/1 ML SDV IV SCH ×2 (09:00→21:26)
[2020-03-16] MEDS ORDERED: LEVOFLOXACIN 750 MG TABLET PO SCH (10:00)
[2020-03-16] MEDS ORDERED: ONDANSETRON HCL INJ/PF 4 MG/2 ML SDV IV PRN (10:30)
--- NOTE | 2020-03-16 11:39 | PDOC PROGRESS REPORT ---
Subjective Progress Note for:: 03/16/20 Subjective:: Patient is doing okay. She is still having frequent dry hacking cough. Coronavirus test came back negative. She does not feel short of breath at the time. She remains with adequate oxygenation on room air. Reason For Visit: COPD EXACERBATION Physical Exam Vital Signs: Temp Pulse Resp BP Pulse Ox 97.7 F 97 17 125/69 100 03/16/20 08:40 03/16/20 08:40 03/16/20 08:40 03/16/20 08:40 03/16/20 08:40 Intake & Output 03/15/20 03/16/20 03/17/20 06:59 06:59 06:59 Intake Total 2049 47 Balance 2049 Weight 63.7 kg 58.7 kg General appearance: PRESENT: no acute distress, cooperative, hard of hearing Neck exam: ABSENT: JVD Respiratory exam: PRESENT: clear to auscultation robbie, symmetrical, unlabored. ABSENT: tachypnea, wheezes Cardiovascular exam: PRESENT: RRR, +S1, +S2. ABSENT: tachycardia GI/Abdominal exam: PRESENT: soft. ABSENT: rebound, rigid, tenderness Neurological exam: PRESENT: alert, awake, oriented to person, oriented to place, oriented to time Results Laboratory Results: 03/16/20 04:20 03/15/20 05:41 03/16/20 03/16/20 03/16/20 04:20 04:20 08:40 WBC 12.5 H RBC 3.80 Hgb 12.9 Hct 38.1 MCV 100 H MCH 33.9 H MCHC 33.8 RDW 12.9 Plt Count 303 Seg Neutrophils % 90.4 H Phosphorus 3.1 Urine Color YELLOW Urine Appearance CLEAR Urine pH 7.0 Ur Specific [place] 1.015 Urine Protein NEGATIVE Urine Glucose (UA) NEGATIVE Urine Ketones NEGATIVE Urine Blood NEGATIVE 03/14/20 10:00 Troponin I < 0.012 Impressions: Chest/Abdomen CTA 03/14/20 00:00 IMPRESSION: 1. Slightly limited study. No major or central pulmonary emboli are seen. There is no aortic aneurysm or dissection. 2. There are peripheral areas of ground-glass infiltrate in both lungs concerning for an atypical infectious/ inflammatory process. 3. There are some nonspecific mediastinal lymph nodes. Chest X-Ray 03/14/20 09:55 IMPRESSION: NO ACUTE RADIOGRAPHIC FINDING IN THE CHEST. Assessment and Plan - Diagnosis (1) COPD exacerbation Is this a current diagnosis for this admission?: Yes Plan: Recurrent COPD exacerbations requiring hospitalizations over the past 2 months. Counseled patient thoroughly on avoiding secondhand smoke inhalation and s topping Vaping She was unable to afford the maintenance inhaler that she was discharged with on the last admission. Improved today. No notable wheezing on exam. De-escalate duo nebs to q8h, Pulmicort nebulizer and Solu-Medrol. Levaquin. Has recently completed courses of azithromycin and doxycycline over the past 1.5 months for COPD exacerbation as well. Monitor closely Pulmonology consulted (2) Ground glass opacity present on imaging of lung Is this a current diagnosis for this admission?: Yes Plan: Noted bilateral lung granados on CAT scan. Etiology is likely Pneumonitis associated with E Vaping or Viral/Atypical bacterial Pneumonia COVID 19 test is negative EVaping discouraged and risks explained. Continue steroids. Has received Azithromycin and Doxycycline therapies withing past month. Will try 5 days of Levaquin [day 2]. Not producing sputum for culture. Graining Operator consulted with concerns for EVALI. (3) Acute respiratory failure with hypoxia and hypercapnia Is this a current diagnosis for this admission?: Yes Plan: Resolved. Has been on room air for the past 2 days. (4) Nicotine dependence Qualifiers: Nicotine product type: other Substance use status: uncomplicated Qualified Code(s): F17.290 - Nicotine dependence, other tobacco product, uncomplicated Is this a current diagnosis for this admission?: Yes Plan: NicoDerm patch will be offered. Patient has been significantly cautioned against continuation of Vaping. (5) Leukocytosis Qualifiers: Leukocytosis type: bandemia Qualified Code(s): D72.825 - Bandemia Is this a current diagnosis for this admission?: Yes - Time Time Spent with patient: Less than 15 minutes Anticipated Discharge Disposition: Home, Self Care Anticipated Discharge Timeframe: within 36 hours
[2020-03-16] MEDS: LEVOFLOXACIN 750 MG TABLET PO SCH (21:26)
[2020-03-16] MEDS: MELATONIN 3 MG TABLET PO SCH (21:26)
[2020-03-17] MEDS: IPRATROPIUM/ALBUTEROL 0.5-2.5 MG/3 ML AMPUL NEB SCH ×4 (00:29→23:44)
[2020-03-17 05:29] LABS: ABSOLUTE LYMPHOCYTES (AUTO) 0.8 10^3/uL (0.5-4.7); ABSOLUTE MONOCYTES (AUTO) 0.4 10^3/uL (0.1-1.4); ABSOLUTE NEUT (AUTO) 9.4 10^3/uL (1.7-8.2); BASOPHILS % (AUTO) 0.3 % (0-2); EOSINOPHILS % (AUTO) 0.1 % (0-6); HEMATOCRIT 39.7 % (36.0-47.0); HEMOGLOBIN 13.4 g/dL (12.0-15.5); LYMPHOCYTES % (AUTO) 7.9 % (13-45); MEAN CORPUSCULAR HGB CONC 33.8 g/dL (32.0-36.0); MEAN CORPUSCULAR VOLUME 101 fl (80-97); MONOCYTES % (AUTO) 3.5 % (3-13); PLATELET COUNT 293 10^3/uL (150-450); RED BLOOD COUNT 3.95 10^6/uL (3.72-5.28); RED CELL DISTRIBUTION WIDTH 12.8 % (11.5-14.0); SEGMENTED NEUTROPHILS % (AUTO) 88.2 % (42-78); TOTAL CELLS COUNTED % (AUTO) 100 %; WHITE BLOOD COUNT 10.6 10^3/uL (4.0-10.5)
[2020-03-17] MEDS: GABAPENTIN 400 MG CAPSULE PO SCH ×3 (06:20→22:45)
[2020-03-17] MEDS: BUDESONIDE NEB 0.25 MG/2 ML AMPUL NEB SCH ×2 (08:58→19:56)
[2020-03-17] MEDS: MELOXICAM 15 MG TABLET PO SCH (10:06)
[2020-03-17] MEDS: NICOTINE 14 MG/24 HR PATCH.TD24 TD SCH (10:10)
[2020-03-17] MEDS: FLUOXETINE HCL 20 MG CAPSULE PO SCH (10:10)
[2020-03-17] MEDS: FAMOTIDINE 20 MG TABLET PO SCH ×2 (10:10→22:45)
[2020-03-17] MEDS: ENOXAPARIN SODIUM INJ 40 MG/0.4 ML DISP.SYRIN SUBCUT SCH (10:11)
[2020-03-17] MEDS: METHYLPREDNISOLONE INJ 40 MG/1 ML SDV IV SCH (10:45)
--- NOTE | 2020-03-17 18:22 | PDOC PROGRESS REPORT ---
Subjective Progress Note for:: 03/17/20 Subjective:: She feels much better today in terms of her breathing. Still having occasional dry hacking cough. Denies shortness of breath. She told respiratory therapist this afternoon that she did not need her breathing treatment because she felt fine. Reason For Visit: COPD EXACERBATION Physical Exam Vital Signs: Temp Pulse Resp BP Pulse Ox 98.5 F 77 12 120/72 99 03/17/20 15:47 03/17/20 15:47 03/17/20 15:47 03/17/20 15:47 03/17/20 15:47 Intake & Output 03/16/20 03/17/20 03/18/20 06:59 06:59 06:59 Intake Total 400 473 4870 Output Total 300 Balance 622 171 8323 Weight 58.7 kg 58.7 kg General appearance: PRESENT: no acute distress, cooperative, hard of hearing Neck exam: ABSENT: JVD Respiratory exam: PRESENT: symmetrical, unlabored. ABSENT: tachypnea, wheezes Cardiovascular exam: PRESENT: RRR, +S1, +S2. ABSENT: tachycardia GI/Abdominal exam: PRESENT: soft. ABSENT: rebound, rigid, tenderness Neurological exam: PRESENT: alert, awake, oriented to person, oriented to place, oriented to time Results Laboratory Results: 03/17/20 04:19 03/15/20 05:41 03/17/20 04:19 WBC 10.6 H RBC 3.95 Hgb 13.4 Hct 39.7 MCV 101 H MCH 34.0 H MCHC 33.8 RDW 12.8 Plt Count 293 Seg Neutrophils % 88.2 H 03/14/20 10:00 Troponin I < 0.012 Impressions: Chest/Abdomen CTA 03/14/20 00:00 IMPRESSION: 1. Slightly limited study. No major or central pulmonary emboli are seen. There is no aortic aneurysm or dissection. 2. There are peripheral areas of ground-glass infiltrate in both lungs concerning for an atypical infectious/ inflammatory process. 3. There are some nonspecific mediastinal lymph nodes. Chest X-Ray 03/14/20 09:55 IMPRESSION: NO ACUTE RADIOGRAPHIC FINDING IN THE CHEST. Assessment and Plan - Diagnosis (1) COPD exacerbation Is this a current diagnosis for this admission?: Yes Plan: Recurrent COPD exacerbations requiring hospitalizations over the past 2 months. Counseled patient thoroughly on avoiding secondhand smoke inhalation and stopping Vaping She was unable to afford the maintenance Symbicort inhaler that she was discharged with on the last admission. She was put on ANORO ELLIPTA as outpatient. Improved today. No notable wheezing on exam. Continue duo nebs to q8h, Pulmicort nebulizer and Levaquin. Change Solu-Medrol to prednisone. Has recently completed courses of azithromycin and doxycycline over the past 1.5 months for COPD exacerbation as well. Monitor closely Pulmonology consulted (2) Eosinophilic pneumonia Is this a current diagnosis for this admission?: Yes Plan: Patient was evaluated by legal entity controller Dr. Hamilton Bender who discussed case with me stating that groundglass opacities noted on chest CT are likely secondary to eosinophilic pneumonia and recommends placing patient on prednisone 40 mg total daily dosing for the next several days until patient can follow-up with him in the office next week and a few doses of antibiotics.. Recommends discharging patient home tomorrow if patient is doing well. COVID-19 test was negative. Patient also advised to stop E vaping (3) Acute respiratory failure with hypoxia and hypercapnia Is this a current diagnosis for this admission?: Yes Plan: Resolved (4) Nicotine dependence Qualifiers: Nicotine product type: other Substance use status: uncomplicated Qualified Code(s): F17.290 - Nicotine dependence, other tobacco product, uncomplicated Is this a current diagnosis for this admission?: Yes Plan: NicoDerm patch will be offered. Patient has been significantly cautioned against continuation of Vaping. (5) Leukocytosis Qualifiers: Leukocytosis type: bandemia Qualified Code(s): D72.825 - Bandemia Is this a current diagnosis for this admission?: Yes Plan: Resolving. - Time Time Spent with patient: Less than 15 minutes Anticipated Discharge Disposition: Home, Self Care Anticipated Discharge Timeframe: within 24 hours
[2020-03-17] MEDS: MELATONIN 3 MG TABLET PO SCH (22:45)
[2020-03-17] MEDS: LEVOFLOXACIN 750 MG TABLET PO SCH (22:45)
[2020-03-17] MEDS: PREDNISONE 20 MG TABLET PO SCH (22:45)
[2020-03-18] MEDS: GABAPENTIN 400 MG CAPSULE PO SCH (05:29)
[2020-03-18] MEDS: BUDESONIDE NEB 0.25 MG/2 ML AMPUL NEB SCH (07:42)
[2020-03-18] MEDS: IPRATROPIUM/ALBUTEROL 0.5-2.5 MG/3 ML AMPUL NEB SCH (07:42)
[2020-03-18] MEDS: FLUOXETINE HCL 20 MG CAPSULE PO SCH (11:23)
[2020-03-18] MEDS: FAMOTIDINE 20 MG TABLET PO SCH (11:24)
[2020-03-18] MEDS: PREDNISONE 20 MG TABLET PO SCH (11:24)
[2020-03-18] MEDS: MELOXICAM 15 MG TABLET PO SCH (11:24)
[2020-03-18] MEDS: ENOXAPARIN SODIUM INJ 40 MG/0.4 ML DISP.SYRIN SUBCUT SCH (11:25)
[2020-03-18] MEDS: NICOTINE 14 MG/24 HR PATCH.TD24 TD SCH (11:27)
--- NOTE | 2020-03-18 13:24 | PDOC DISCHARGE SUMMARY ---
Impression - Admit/DC Date/PCP Admission Date/Primary Care Provider: 03/14/20 12:11 YUMIKO SETHI Discharge Date: 03/18/20 - Discharge Diagnosis (1) COPD exacerbation Is this a current diagnosis for this admission?: Yes (2) Eosinophilic pneumonia Is this a current diagnosis for this admission?: Yes (3) Acute respiratory failure with hypoxia and hypercapnia Is this a current diagnosis for this admission?: Yes (4) Nicotine dependence Is this a current diagnosis for this admission?: Yes (5) Leukocytosis Is this a current diagnosis for this admission?: Yes - Additional Information Resuscitation Status: Full Code Discharge Diet: As Tolerated, Regular Discharge Activity: Activity As Tolerated Referrals: HAMILTON BENDER MD [ACTIVE PROVISIONAL STAFF] - BRITTNEY YANEZ FNP [Primary Care Provider] - Follow up as needed Prescriptions: Prednisone [Deltasone 20 mg Tablet] 20 mg PO Q12 12 Days #24 tablet Levofloxacin [Levaquin 500 mg Tablet] 500 mg PO DAILY 2 Days #2 tablet Home Medications: Fluoxetine HCl [Prozac] 80 mg PO QAM 01/31/20 Gabapentin [Neurontin] 800 mg PO TID 01/31/20 Meloxicam [Mobic] 15 mg PO DAILY 01/31/20 Albuterol Sulfate [Albuterol Sulfate Hfa] 1 puff IH Q4HP PRN 03/03/20 Albuterol Sulfate [Ventolin 0.083% Neb 2.5 mg/3 mL Ampul] 2.5 mg NEB Q6HP PRN 03/14/20 Levofloxacin [Levaquin 500 mg Tablet] 500 mg PO DAILY 2 Days #2 tablet 03/18/20 Prednisone [Deltasone 20 mg Tablet] 20 mg PO Q12 12 Days #24 tablet 03/18/20 History of Present Illiness History of Present Illness: ELIZABETH RAMIREZ is a 54 year old female with history of recently diagnosed COPD and recent hospitalization for COPD exacerbation, who presents to the hospital once again after recent discharge with similar complaints of shortness of breath and notably was respiratory distress. Patient states that since her recent discharge, she was doing well in terms of the breathing but subsequently worsened. This morning, she notably could not catch her breath. Her cough has persisted. She also continues to vape. She denies any fever or chills or abdominal pain. She denies any wounds. She did complete the prednisone which she was discharged with for 3 days. She has also received a nebulizer and has been using her nebulizer treatments. In the ER, she was noted to be hypoxic and with significant wheezing and notably in distress and subsequently placed on BiPAP. ABG showed hypercapnic respiratory failure. Hospital Course Hospital Course: Patient was admitted to the hospital for treatment of acute respiratory failure with hypoxia and hypercapnia. At the time of presentation, she was noted to be significantly wheezing. She was suspected to be in COPD exacerbation and started on empiric treatment with frequent nebulizer bronchodilators as well as IV Solu-Medrol. Due to respiratory failure and hypercapnia noted on blood gas, patient was initially placed on the BiPAP. She was later de-escalated and transitioned to room air later in the day. Given patient's frequent presentations with respiratory distress, CTA of the chest was done to evaluate patient's recurrence of exacerbations. CTA chest showed no evidence of pulmonary embolism but did show groundglass opacities in the periphery bilaterally of patient's lungs. Given this finding, patient was tested for COVID-19 PCR which turned out to be negative. Of note, patient in the past few weeks [less than a month] has been treated with multiple rounds of antibiotics including a complete course of azithromycin, full course of doxycycline. This time in the hospital she was treated with about 3 days of Levaquin. Her wheezing completely resolved. I consulted her computer network and systems engineer Dr. Hamilton Bender who did evaluate patient in the hospital and discussed with me that he thinks patient has eosinophilic pneumonia and will benefit from a more prolonged course of steroids. He recommended discharging her on prednisone for several days until patient can follow-up with him in the office next week. He will help facilitate office visit next week. Patient has been doing well and has not required BiPAP therapy since her initial presentation. She has remained on room air for the past 2-1/2 days now and is ready for discharge today. She is being discharged with 2 more days of Levaquin as well as prednisone. She will following up with Dr. Bender in the office. Physical Exam Vital Signs: Temp Pulse Resp BP Pulse Ox 97.8 F 99 20 98/71 L 99 03/18/20 12:15 03/18/20 12:15 03/18/20 12:15 03/18/20 12:15 03/18/20 12:15 Intake & Output 03/17/20 03/18/20 03/19/20 06:59 06:59 06:59 Intake Total 976 1064 Output Total 300 Balance 676 1064 Weight 58.7 kg 58.7 kg General appearance: PRESENT: no acute distress, cooperative Neck exam: ABSENT: JVD Respiratory exam: PRESENT: crackles, symmetrical, unlabored. ABSENT: accessory muscle use, rales, tachypnea, wheezes Cardiovascular exam: PRESENT: RRR, +S1, +S2. ABSENT: tachycardia Neurological exam: PRESENT: alert, awake Results Laboratory Results: WBC 10.6 10^3/uL (4.0-10.5) H 03/17/20 04:19 RBC 3.95 10^6/uL (3.72-5.28) 03/17/20 04:19 Hgb 13.4 g/dL (12.0-15.5) 03/17/20 04:19 Hct 39.7 % (36.0-47.0) 03/17/20 04:19 MCV 101 fl (80-97) H 03/17/20 04:19 MCH 34.0 pg (27.0-33.4) H 03/17/20 04:19 MCHC 33.8 g/dL (32.0-36.0) 03/17/20 04:19 RDW 12.8 % (11.5-14.0) 03/17/20 04:19 Plt Count 293 10^3/uL (150-450) 03/17/20 04:19 Lymph % (Auto) 7.9 % (13-45) L 03/17/20 04:19 Hart % (Auto) 3.5 % (3-13) 03/17/20 04:19 Eos % (Auto) 0.1 % (0-6) 03/17/20 04:19 Baso % (Auto) 0.3 % (0-2) 03/17/20 04:19 Absolute Neuts (auto) 9.4 10^3/uL (1.7-8.2) H 03/17/20 04:19 Absolute Lymphs (auto) 0.8 10^3/uL (0.5-4.7) 03/17/20 04:19 Absolute Monos (auto) 0.4 10^3/uL (0.1-1.4) 03/17/20 04:19 Absolute Eos (auto) 0.0 10^3/uL (0.0-0.6) 03/17/20 04:19 Absolute Basos (auto) 0.0 10^3/uL (0.0-0.2) 03/17/20 04:19 Total Counted 100 03/14/20 10:00 Seg Neutrophils % 88.2 % (42-78) H 03/17/20 04:19 Seg Neuts % (Manual) 84 % (42-78) H 03/14/20 10:00 Band Neutrophils % 2 % (3-5) L 03/14/20 10:00 Lymphocytes % (Manual) 4 % (13-45) L 03/14/20 10:00 Atypical Lymphs % 2 % (0) 03/14/20 10:00 Monocytes % (Manual) 3 % (3-13) 03/14/20 10:00 Eosinophils % (Manual) 5 % (0-6) 03/14/20 10:00 Basophils % (Manual) 0 % (0-2) 03/14/20 10:00 Abs Neuts (Manual) 18.1 10^3/uL (1.7-8.2) H 03/14/20 10:00 Abs Lymphs (Manual) 1.3 10^3/uL (0.5-4.7) 03/14/20 10:00 Abs Monocytes (Manual) 0.6 10^3/uL (0.1-1.4) 03/14/20 10:00 Absolute Eos (Manual) 1.1 10^3/uL (0.0-0.6) H 03/14/20 10:00 Abs Basophils (Manual) 0.0 10^3/uL (0.0-0.2) 03/14/20 10:00 Platelet Comment ADEQUATE 03/14/20 10:00 Poikilocytosis 1+ 03/14/20 10:00 Macrocytosis SLIGHT 03/14/20 10:00 Ovalocytes 1+ 03/14/20 10:00 Carbonic Acid 1.35 mmol/L (1.05-1.35) 03/14/20 14:09 HCO3/H2CO3 Ratio 17:1 03/14/20 14:09 ABG pH 7.34 (7.35-7.45) L 03/14/20 14:09 ABG pCO2 44.8 mmHg (35-45) 03/14/20 14:09 ABG pO2 102.5 mmHg (80-100) H 03/14/20 14:09 ABG HCO3 23.7 mmol/L (20-24) 03/14/20 14:09 ABG Total CO2 25.1 mmol/L (21-25) H 03/14/20 14:09 ABG O2 Saturation 97.4 % (94-98) 03/14/20 14:09 ABG Base Excess -2.1 mmol/L 03/14/20 14:09 VBG pH 7.37 (7.30-7.42) 03/15/20 05:41 VBG pCO2 49.0 mmHg (35-63) 03/15/20 05:41 VBG HCO3 27.9 mmol/L (20-32) 03/15/20 05:41 VBG Base Excess 2.0 mmol/L 03/15/20 05:41 FiO2 40% 03/14/20 14:09 Sodium 140.5 mmol/L (137-145) 03/15/20 05:41 Potassium 4.6 mmol/L (3.6-5.0) 03/15/20 05:41 Chloride 105 mmol/L (98-107) 03/15/20 05:41 Carbon Dioxide 29 mmol/L (22-30) 03/15/20 05:41 Anion Gap 7 (5-19) 03/15/20 05:41 BUN 8 mg/dL (7-20) 03/15/20 05:41 Creatinine 0.49 mg/dL (0.52-1.25) L 03/15/20 05:41 Est GFR ( Amer) > 60 (>60) 03/15/20 05:41 Est GFR (MDRD) Non-Af > 60 (>60) 03/15/20 05:41 Glucose 149 mg/dL (75-110) H 03/15/20 05:41 Calcium 9.2 mg/dL (8.4-10.2) 03/15/20 05:41 Phosphorus 3.1 mg/dL (2.5-4.5) 03/16/20 04:20 Magnesium 2.2 mg/dL (1.6-2.3) 03/15/20 05:41 Troponin I < 0.012 ng/mL 03/14/20 10:00 Urine Color YELLOW 03/16/20 08:40 Urine Appearance CLEAR 03/16/20 08:40 Urine pH 7.0 (5.0-9.0) 03/16/20 08:40 Ur Specific Ayr 1.015 03/16/20 08:40 Urine Protein NEGATIVE mg/dL (NEGATIVE) 03/16/20 08:40 Urine Glucose (UA) NEGATIVE mg/dL (NEGATIVE) 03/16/20 08:40 Urine Ketones NEGATIVE mg/dL (NEGATIVE) 03/16/20 08:40 Urine Blood NEGATIVE (NEGATIVE) 03/16/20 08:40 Urine Nitrite (Reflex) NEGATIVE (NEGATIVE) 03/16/20 08:40 Urine Bilirubin NEGATIVE (NEGATIVE) 03/16/20 08:40 Urine Urobilinogen NEGATIVE mg/dL (<2.0) 03/16/20 08:40 Leukocyte Esterase Rfl NEGATIVE (NEGATIVE) 03/16/20 08:40 Squamous Epi Cells Auto <1 /HPF 03/16/20 08:40 Urine Mucus (Auto) FEW /LPF 03/16/20 08:40 Urine Ascorbic Acid NEGATIVE (NEGATIVE) 03/16/20 08:40 COVID-19 Source NASOPHARYNGEAL 03/14/20 17:30 COVID-19 (GARY) NOT DETECTED 03/14/20 17:30 03/14/20 10:00 Troponin I < 0.012 Impressions: Chest/Abdomen CTA 03/14/20 00:00 IMPRESSION: 1. Slightly limited study. No major or central pulmonary emboli are seen. There is no aortic aneurysm or dissection. 2. There are peripheral areas of ground-glass infiltrate in both lungs concerning for an atypical infectious/ inflammatory process. 3. There are some nonspecific mediastinal lymph nodes. Chest X-Ray 03/14/20 09:55 IMPRESSION: NO ACUTE RADIOGRAPHIC FINDING IN THE CHEST. Plan Time Spent: Less than 30 Minutes Stroke Is this a Stroke Patient?: No Acute Heart Failure Is this a Heart Failure Patient?: No
[2020-03-18 13:47] VITALS: BP 123/73
== END 2020-03-18 14:20 | disposition home or self-care (01) | DRG 189 ==
LOC: ER 09:46 → EH 12:11 → 3W 15:02 → 3N 03-15 18:25 → 4N 03-16 16:59
PROVIDERS: ADMIT Internal Medicine; ATTEND Internal Medicine
PROC: 5A09357 Assistance with Respiratory Ventilation, Less than 24 Consecutive Hours, Continuous Positive Airway Pressure (ICD-10-PCS; principal; 2020-03-14)
DX: J96.01 Acute respiratory failure with hypoxia (principal); J82 Pulmonary eosinophilia, not elsewhere classified; J44.1 Chronic obstructive pulmonary disease with (acute) exacerbation; J96.02 Acute respiratory failure with hypercapnia; Z20.828 Contact with and (suspected) exposure to other viral communicable diseases; E11.40 Type 2 diabetes mellitus with diabetic neuropathy, unspecified; F32.9 Major depressive disorder, single episode, unspecified; D72.825 Bandemia; J70.5 Respiratory conditions due to smoke inhalation; U07.0 Vaping-related disorder; F17.290 Nicotine dependence, other tobacco product, uncomplicated; Z79.899 Other long term (current) drug therapy; Z82.49 Family history of ischemic heart disease and other diseases of the circulatory system; Z79.51 Long term (current) use of inhaled steroids; Z79.52 Long term (current) use of systemic steroids
CPT/HCPCS: 36415; 71045; 71275; 80048; 81001; 82803; 83735; 84100; 84484; 85025; 87040; 87086; 87635; 93005; 93010; 94640; 94660; 96361; 96365; 96375; 99285; C9803; J0456; J0696; J1650; J2920; J3490; J7030; J7512; J7613

== ENCOUNTER 2020-05-02 23:26 | Emergency (ER) | payer BC ==
[2020-05-02] MEDS ORDERED: IPRATROPIUM/ALBUTEROL 0.5-2.5 MG/3 ML AMPUL NEB ONE (23:54)
--- NOTE | 2020-05-02 23:56 | ER Document Report ---
ED Respiratory Problem - General Chief Complaint: Shortness Of Breath Stated Complaint: BREATHING PROBLEMS Time Seen by Provider: 05/02/20 23:39 Primary Care Provider: BRITTNEY YANEZ FNP [Primary Care Provider] - Follow up in 3-5 days Notes: Patient is a 54-year-old female that comes emergency department for chief complaint of difficulty breathing. She has a history of COPD, she continues to smoke, she states she started having wheezing during the morning and then all day progressively worsened. She received albuterol and Xopenex along with 125 mg of Solu-Medrol by EMS. She did report she feels improved but is still having wheezing and shortness of breath. She denies fever, chest pain, productive cough. She denies any diagnosed medical history other than COPD. She states she had pneumonia 1 month ago and was treated for this, she states she has been tested twice for COVID-19 and was negative both times. TRAVEL OUTSIDE OF THE [place] IN LAST 30 DAYS: No - Related Data Allergies/Adverse Reactions: No Known Allergies Allergy (Verified 03/14/20 10:23) Past Medical History - General Information source: Patient - Social History Smoking Status: Current Every Day Smoker Smoking Education Provided: Yes - <3 min Family History: Hypertension - Past Medical History Cardiac Medical History: Denies: Hx Congestive Heart Failure, Hx Coronary Artery Disease, Hx Heart Attack Pulmonary Medical History: Reports: Hx COPD Endocrine Medical History: Reports: Hx Diabetes Mellitus Type 2 - with neuropathy. Denies: Hx Hypothyroidism Renal/ Medical History: Denies: Hx Peritoneal Dialysis GI Medical History: Denies: Hx Diverticulitis, Hx Gastroesophageal Reflux Disease, Hx Hiatal Hernia Musculoskeletal Medical History: Reports Hx Arthritis Psychiatric Medical History: Reports: Hx Depression Past Surgical History: Reports: Hx Section Review of Systems - Review of Systems Constitutional: No symptoms reported EENT: No symptoms reported Cardiovascular: No symptoms reported Respiratory: See HPI Gastrointestinal: No symptoms reported Genitourinary: No symptoms reported Female Genitourinary: No symptoms reported Musculoskeletal: No symptoms reported Skin: No symptoms reported Hematologic/Lymphatic: No symptoms reported Neurological/Psychological: No symptoms reported Physical Exam - Vital signs Vitals: Temp 97.9 F 05/02/20 23:27 - Notes Notes: GENERAL: Alert, interacts well. No acute distress. HEAD: Normocephalic, atraumatic. EYES: Pupils equal, round, and reactive to light. Extraocular movements intact. ENT: Oral mucosa moist, tongue midline. Oropharynx unremarkable. Airway patent. NECK: Full range of motion. Supple. Trachea midline. No lymphadenopathy. LUNGS: Decreased breath sounds bilaterally, expiratory wheezes noted throughout, no rales or rhonchi. Speaks in full sentences, no respiratory distress. HEART: Regular rate and rhythm. No murmur ABDOMEN: Soft, non-tender. Non-distended. Bowel sounds present in all 4 quadrants. GENITOURINARY: Deferred EXTREMITIES: Moves all 4 extremities spontaneously. No edema, normal radial and dorsalis pedis pulses bilaterally. No cyanosis. BACK: no cervical, thoracic, lumbar midline tenderness. No saddle anesthesia, normal distal neurovascular exam. Moves all extremities in full range of motion. NEUROLOGICAL: Alert and oriented x3. Normal speech. Cranial nerves II through XII grossly intact. Strength 5/5 in all extremities. PSYCH: Normal affect, normal mood. SKIN: Warm, dry, normal turgor. No rashes or lesions noted. Course - Re-evaluation Re-evalutation: Patient was still wheezing on my exam although she does not have tachypnea, hypoxia, or respiratory distress. After 2 DuoNeb's wheezing completely resolved. Chest x-ray, EKG, CBC, chemistry, troponin unremarkable. On reeval uation patient with no complaints. Patient is not being tested for COVID-19 because she just was tested twice, she has not developed any new symptoms other than the wheezing, she has no current complaints and is requesting discharge. Patient will be discharged on steroids, discussed follow-up and return precautions, she states appreciation and agreement. Stable and well-appearing at time of discharge. - Vital Signs Vital signs: Temp Pulse Resp BP Pulse Ox 97.9 F 20 133/90 H 96 05/02/20 23:37 05/03/20 03:33 05/03/20 03:33 05/03/20 03:33 - Laboratory Result Diagrams: 05/03/20 00:36 05/03/20 00:36 Laboratory results interpreted by me: 05/03/20 05/03/20 00:36 00:36 WBC 12.0 H MCV 98 H MCH 33.8 H Lymph % (Auto) 9.2 L Eos % (Auto) 6.4 H Absolute Neuts (auto) 9.5 H Absolute Eos (auto) 0.8 H Seg Neutrophils % 78.9 H Carbon Dioxide 32 H Glucose 131 H AST 40 H ALT 54 H Alkaline Phosphatase 152 H - EKG Interpretation by Me Additional EKG results interpreted by me: EKG shows sinus rhythm at a rate of 90, QTc 465, no T wave inversions or ST segment changes in consecutive leads Discharge - Discharge Clinical Impression: COPD exacerbation, Wheezing Condition: Stable Disposition: HOME, SELF-CARE Additional Instructions: Your work-up does not show any concerning findings, your evaluation is consistent with a COPD exacerbation as we discussed. Take prednisone as prescribed, use your albuterol if needed, follow-up with primary care closely for additional management. Stop smoking. Return if you worsen including difficulty breathing, developing chest pain, fever, or any other concerning or worsening symptoms. Prescriptions: Prednisone [Deltasone 20 mg Tablet] 3 tab PO DAILY 5 Days #15 tablet Forms: Smoking Cessation Education Referrals: BRITTNEY YANEZ FNP [Primary Care Provider] - Follow up in 3-5 days
--- NOTE | 2020-05-03 00:38 | RADIOLOGY REPORT (SQ) ---
CLINICAL HISTORY: shortness of breath COMPARISON: 03/14/2020. TECHNIQUE: XR CHEST 1 VIEW 05/02/2020 11:55 PM CDT FINDINGS: Cardiac silhouette is normal in size. Lungs are clear without consolidation, atelectasis, mass or edema. There is no pleural effusion. There is no pneumothorax. There are no acute osseous findings. IMPRESSION: Clear lungs.
[2020-05-03 00:56] LABS: ABSOLUTE BASOPHILS # (AUTO) 0.1 10^3/uL (0.0-0.2); ABSOLUTE EOSINOPHILS # (AUTO) 0.8 10^3/uL (0.0-0.6); ABSOLUTE LYMPHOCYTES (AUTO) 1.1 10^3/uL (0.5-4.7); ABSOLUTE MONOCYTES (AUTO) 0.6 10^3/uL (0.1-1.4); ABSOLUTE NEUT (AUTO) 9.5 10^3/uL (1.7-8.2); BASOPHILS % (AUTO) 0.4 % (0-2); EOSINOPHILS % (AUTO) 6.4 % (0-6); HEMATOCRIT 41.9 % (36.0-47.0); HEMOGLOBIN 14.5 g/dL (12.0-15.5); LYMPHOCYTES % (AUTO) 9.2 % (13-45); MEAN CORPUSCULAR HEMOGLOBIN 33.8 pg (27.0-33.4); MEAN CORPUSCULAR HGB CONC 34.5 g/dL (32.0-36.0); MEAN CORPUSCULAR VOLUME 98 fl (80-97); MONOCYTES % (AUTO) 5.1 % (3-13); PLATELET COUNT 237 10^3/uL (150-450); RED BLOOD COUNT 4.29 10^6/uL (3.72-5.28); RED CELL DISTRIBUTION WIDTH 13.8 % (11.5-14.0); SEGMENTED NEUTROPHILS % (AUTO) 78.9 % (42-78); TOTAL CELLS COUNTED % (AUTO) 100 %
[2020-05-03 01:05] LABS: VENOUS BLOOD BASE EXCESS 2.8 mmol/L; VENOUS BLOOD HCO3 29.5 mmol/L (20-32); VENOUS BLOOD PCO2 53.5 mmHg (35-63); VENOUS BLOOD PH 7.36 (7.30-7.42)
[2020-05-03 01:09] LABS: ALBUMIN 3.9 g/dL (3.5-5.0); ALKALINE PHOSPHATASE 152 U/L (38-126); ANION GAP 6 (5-19); ASPARTATE AMINO TRANSFERASE 40 U/L (14-36); BILIRUBIN,DIRECT 0.1 mg/dL (0.0-0.4); BILIRUBIN,TOTAL 0.5 mg/dL (0.2-1.3); BLOOD UREA NITROGEN 13 mg/dL (7-20); CARBON DIOXIDE 32 mmol/L (22-30); CHLORIDE 100 mmol/L (98-107); GLUCOSE 131 mg/dL (75-110); POTASSIUM 4.1 mmol/L (3.6-5.0); TOTAL PROTEIN 6.3 g/dL (6.3-8.2)
[2020-05-03 03:46] VITALS: BP 133/90
--- NOTE | 2020-05-03 07:34 | EKG REPORT ---
SEVERITY:- BORDERLINE ECG - SINUS RHYTHM PROBABLE LEFT ATRIAL ABNORMALITY : Confirmed by: Pal Lyons MD 03-May-2020 07:33:41
== END 2020-05-03 03:58 | disposition home or self-care (01) ==
LOC: ER 23:26
DX: J44.1 Chronic obstructive pulmonary disease with (acute) exacerbation (principal); R06.2 Wheezing; R06.02 Shortness of breath; F17.200 Nicotine dependence, unspecified, uncomplicated
CPT/HCPCS: 36415; 71045; 80053; 82803; 84484; 85025; 93005; 93010; 94640; 99285

== ENCOUNTER 2020-06-10 07:42 | Emergency (ER) | payer BC ==
[2020-06-10 08:28] LABS: ABSOLUTE EOSINOPHILS # (AUTO) 0.2 10^3/uL (0.0-0.6); ABSOLUTE LYMPHOCYTES (AUTO) 2.4 10^3/uL (0.5-4.7); ABSOLUTE MONOCYTES (AUTO) 0.9 10^3/uL (0.1-1.4); ABSOLUTE NEUT (AUTO) 7.4 10^3/uL (1.7-8.2); BASOPHILS % (AUTO) 0.3 % (0-2); EOSINOPHILS % (AUTO) 1.9 % (0-6); HEMATOCRIT 38.5 % (36.0-47.0); HEMOGLOBIN 13.1 g/dL (12.0-15.5); LYMPHOCYTES % (AUTO) 22.2 % (13-45); MEAN CORPUSCULAR HGB CONC 33.9 g/dL (32.0-36.0); MEAN CORPUSCULAR VOLUME 98 fl (80-97); MONOCYTES % (AUTO) 7.9 % (3-13); PLATELET COUNT 252 10^3/uL (150-450); RED BLOOD COUNT 3.95 10^6/uL (3.72-5.28); RED CELL DISTRIBUTION WIDTH 14.9 % (11.5-14.0); SEGMENTED NEUTROPHILS % (AUTO) 67.7 % (42-78); TOTAL CELLS COUNTED % (AUTO) 100 %; WHITE BLOOD COUNT 10.9 10^3/uL (4.0-10.5)
[2020-06-10 08:47] LABS: APPEARANCE,URINE CLOUDY; BILIRUBIN,URINE NEGATIVE (NEGATIVE); COLOR,URINE YELLOW; GLUCOSE, URINE NEGATIVE (NEGATIVE); KETONES,URINE NEGATIVE (NEGATIVE); LEUKOCYTE ESTERASE,URINE NEGATIVE (NEGATIVE); NITRITE,URINE NEGATIVE (NEGATIVE); PROTEIN,URINE NEGATIVE (NEGATIVE); URINE SPECIFIC GRAVITY 1.018; UROBILINOGEN,URINE NEGATIVE mg/dL (<2.0)
[2020-06-10 08:58] LABS: ALBUMIN 3.9 g/dL (3.5-5.0); ALKALINE PHOSPHATASE 112 U/L (38-126); ASPARTATE AMINO TRANSFERASE 23 U/L (14-36); BILIRUBIN,DIRECT 0.1 mg/dL (0.0-0.4); BILIRUBIN,TOTAL 0.7 mg/dL (0.2-1.3); BLOOD UREA NITROGEN 13 mg/dL (7-20); CALCIUM 9.9 mg/dL (8.4-10.2); CARBON DIOXIDE 35 mmol/L (22-30); CHLORIDE 98 mmol/L (98-107); GLUCOSE 95 mg/dL (75-110); POTASSIUM 3.9 mmol/L (3.6-5.0); TOTAL PROTEIN 6.6 g/dL (6.3-8.2)
[2020-06-10 09:04] LABS: ANION GAP 3 (5-19)
[2020-06-10] MEDS ORDERED: NORMAL SALINE 1000 ML 1,000 ML IV ONE (10:13)
[2020-06-10] MEDS ORDERED: MORPHINE SULFATE 10 MG/ML INJ IV ONE (10:14)
[2020-06-10] MEDS ORDERED: ONDANSETRON HCL INJ/PF 4 MG/2 ML SDV IV ONE (10:15)
--- NOTE | 2020-06-10 10:24 | ER Document Report ---
Entered by TYRESE PRASAD SCRIBE 06/10/20 0928 Acting as scribe for:YOSSI ETIENNE MD ED GI/ - General Chief Complaint: Abdominal Pain Stated Complaint: ABDOMINAL PAIN, BACK PAIN Primary Care Provider: BRITTNEY YANEZ FNP [Primary Care Provider] - Follow up as needed Mode of Arrival: Ambulatory Information source: Patient Notes: This 54 year old female patient who is hard of hearing presents to the ED today with complaints of sharp, nonradiating RLQ abdominal pain that started x2 days ago. Patient denies any association with food or urinary/bowel habits. Last bowel movement was normal yesterday. She states that she is able to tolerate PO intake. Denies fever, nausea, vomiting, or diarrhea. Denies any abdominal surgeries except for . TRAVEL OUTSIDE OF THE [place] 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 denies: Fever EENT: No symptoms reported Cardiovascular: No symptoms reported Respiratory: No symptoms reported Gastrointestinal: See HPI, Abdominal pain, Last bowel movement - 06/09, normal. denies: Diarrhea, Nausea, Vomiting Genitourinary: No symptoms reported Female Genitourinary: No symptoms reported Musculoskeletal: No symptoms reported Skin: No symptoms reported Hematologic/Lymphatic: No symptoms reported Neurological/Psychological: No symptoms reported -: Yes All other systems reviewed and negative Physical Exam - Vital signs Vitals: Temp Pulse Resp BP Pulse Ox 98.0 F 88 18 137/88 H 98 06/10/20 07:48 06/10/20 07:48 06/10/20 07:48 06/10/20 07:48 06/10/20 07:48 Interpretation: Normal - General General appearance: Appears well, Alert In distress: None - HEENT Head: Normocephalic, Atraumatic Eyes: Normal Pupils: PERRL - Respiratory Respiratory status: No respiratory distress Chest status: Nontender Breath sounds: Normal Chest palpation: Normal - Cardiovascular Rhythm: Regular Heart sounds: Normal auscultation Murmur: No Friction rub: No Gallop: None auscultated - Abdominal Inspection: Striae Distension: No distension Bowel sounds: Normal Tenderness: Tender - RLQ tenderness to palpation. No: Rebound Organomegaly: No organomegaly - Back Back: Normal, Nontender - Extremities General upper extremity: Normal inspection General lower extremity: Normal inspection. No: Edema - Neurological Neuro grossly intact: Yes Orientation: AAOx4 Damián Coma Scale Eye Opening: Spontaneous Damián Coma Scale Verbal: Oriented Damián Coma Scale Motor: Obeys Commands Damián Coma Scale Total: 15 - Psychological Associated symptoms: Normal affect, Normal mood - Skin Skin Temperature: Warm Skin Moisture: Dry Skin Color: Normal Course - Re-evaluation Re-evalutation: 06/10/20 14:36 Patient resting comfortably not showing any signs of distress. - Vital Signs Vital signs: Temp Pulse Resp BP Pulse Ox 98.4 F 87 18 116/71 94 06/10/20 14:30 06/10/20 14:30 06/10/20 14:30 06/10/20 14:30 06/10/20 14:30 06/10/20 14:36 Vital signs stable - Laboratory Result Diagrams: 06/10/20 08:07 06/10/20 08:07 Laboratory results interpreted by me: 06/10/20 06/10/20 08:07 08:07 WBC 10.9 H MCV 98 H RDW 14.9 H Sodium 136.4 L Carbon Dioxide 35 H Anion Gap 3 L ALT 39 H - Diagnostic Test Radiology reviewed: Image reviewed, Reports reviewed Radiology results interpreted by me: 06/10/20 13:03 Abdomen/Pelvis CT 06/10/20 00:00 IMPRESSION: No acute findings. 06/10/20 14:37 CT scan of abdomen and pelvis shows no acute process. Discharge - Discharge Clinical Impression: Abdominal pain Condition: Stable Disposition: HOME, SELF-CARE Instructions: Bulk Laxatives, Abdominal Pain ([facility]) Referrals: BRITTNEY YANEZ FNP [Primary Care Provider] - Follow up as needed I personally performed the services described in the documentation, reviewed and edited the documentation which was dictated to the scribe in my presence, and it accurately records my words and actions.
[2020-06-10 11:48] LABS: URINE AMPHETAMINES SCREEN NEGATIVE; URINE BARBITURATES SCREEN NEGATIVE; URINE BENZODIAZEPINES SCREEN NEGATIVE; URINE COCAINE SCREEN NEGATIVE; URINE METHADONE SCREEN NEGATIVE; URINE PHENCYCLIDINE SCREEN NEGATIVE
[2020-06-10 11:49] LABS: URINE MARIJUANA (THC) SCREEN UNCONFIRMED POSITIVE
--- NOTE | 2020-06-10 12:42 | RADIOLOGY REPORT (SQ) ---
EXAM DESCRIPTION: CT ABD/PELVIS WITH IV ORAL IMAGES COMPLETED DATE/TIME: 06/10/2020 12:27 pm REASON FOR STUDY: RLQ abd pain COMPARISON: 07/20/2018 TECHNIQUE: CT scan of the abdomen and pelvis performed with intravenous and oral contrast using xander gracie scanning technique with dynamic intravenous contrast injection. Images reviewed with lung, soft t issue, and bone windows. Reconstructed coronal and sagittal MPR images reviewed. Delayed images for e valuation of the urinary system also acquired. All images stored on PACS. All CT scanners at this facility use dose modulation, iterative reconstruction, and/or weight based d osing when appropriate to reduce radiation dose to as low as reasonably achievable (ALARA). [facility]: Dose Right [facility]: CareDose [facility]: Dose Right [facility]: Teradose 4D [facility]: [employer] CONTRAST TYPE AND DOSE: contrast/concentration: Isovue 350.00 mmol/ml; Total Contrast Delivered: 73. 0 ml; Total Saline Delivered: 64.0 ml RENAL FUNCTION: None available. RADIATION DOSE: CT Rad equipment meets quality standard of care and radiation dose reduction techniq ues were employed. CTDIvol: 8.4 - 11.7 mGy. DLP: 980 mGy-cm. . LIMITATIONS: Artifact from oral contrast. FINDINGS: LOWER CHEST: Small hiatal hernia. LIVER: Normal size. No masses. No dilated ducts. SPLEEN: Normal size. No focal lesions. PANCREAS: No masses. No significant calcifications. No adjacent inflammation or peripancreatic fluid collections. Pancreatic duct not dilated. GALLBLADDER: No identified stones by CT criteria. No inflammatory changes to suggest cholecystitis. ADRENAL GLANDS: No significant masses or asymmetry. RIGHT KIDNEY AND URETER: No solid masses. No significant calcifications. No hydronephrosis or hyd roureter. LEFT KIDNEY AND URETER: No solid masses. No significant calcifications. No hydronephrosis or hydr oureter. AORTA AND VESSELS: No aneurysm. No dissection. Renal arteries, SMA, celiac without stenosis. RETROPERITONEUM: No retroperitoneal adenopathy, hemorrhage or masses. BOWEL AND PERITONEAL CAVITY: No obstruction. No visualized masses. No free fluid. No inflammatory ch anges or thickening of bowel wall. APPENDIX: Normal. PELVIS: No significant masses. Normal bladder. No free fluid. ABDOMINAL WALL: No masses. No hernias. BONES: No significant or acute findings. OTHER: No other significant finding. IMPRESSION: No acute findings. TECHNICAL DOCUMENTATION: JOB ID: [id number] Quality ID # [id number]: Final reports with documentation of one or more dose reduction techniques (e.g., Au tomated exposure control, adjustment of the mA and/or kV according to patient size, use of iterative reconstruction technique) 2010 [employer]- All Rights Reserved Reading location - IP/workstation name: [email or web address]
[2020-06-10 14:30] VITALS: BP 116/71
== END 2020-06-10 14:59 | disposition home or self-care (01) ==
LOC: ER 07:42
DX: R10.31 Right lower quadrant pain (principal); R10.813 Right lower quadrant abdominal tenderness; F17.200 Nicotine dependence, unspecified, uncomplicated; E11.40 Type 2 diabetes mellitus with diabetic neuropathy, unspecified
CPT/HCPCS: 99284; 96361; 96374; 96375; 36415; 80307 ×2; 83605; 83690; 85025; 80053; 81001; 74177; J2270; J2405; J7030

== ENCOUNTER 2020-06-25 20:28 | Inpatient (IN) | payer BC ==
[2020-06-25 20:56] LABS: ABSOLUTE EOSINOPHILS # (AUTO) 0.4 10^3/uL (0.0-0.6); ABSOLUTE LYMPHOCYTES (AUTO) 2.6 10^3/uL (0.5-4.7); ABSOLUTE MONOCYTES (AUTO) 0.9 10^3/uL (0.1-1.4); ABSOLUTE NEUT (AUTO) 12.1 10^3/uL (1.7-8.2); BASOPHILS % (AUTO) 0.2 % (0-2); EOSINOPHILS % (AUTO) 2.4 % (0-6); HEMATOCRIT 37.3 % (36.0-47.0); HEMOGLOBIN 12.3 g/dL (12.0-15.5); LYMPHOCYTES % (AUTO) 16.4 % (13-45); MEAN CORPUSCULAR VOLUME 100 fl (80-97); MONOCYTES % (AUTO) 5.7 % (3-13); PLATELET COUNT 369 10^3/uL (150-450); RED BLOOD COUNT 3.73 10^6/uL (3.72-5.28); RED CELL DISTRIBUTION WIDTH 14.6 % (11.5-14.0); SEGMENTED NEUTROPHILS % (AUTO) 75.3 % (42-78); TOTAL CELLS COUNTED % (AUTO) 100 %
[2020-06-25 21:16] LABS: ALBUMIN 3.6 g/dL (3.5-5.0); ALKALINE PHOSPHATASE 145 U/L (38-126); ANION GAP 7 (5-19); ASPARTATE AMINO TRANSFERASE 38 U/L (14-36); BILIRUBIN,DIRECT 0.3 mg/dL (0.0-0.4); BILIRUBIN,TOTAL 0.4 mg/dL (0.2-1.3); BLOOD UREA NITROGEN 15 mg/dL (7-20); CARBON DIOXIDE 34 mmol/L (22-30); CHLORIDE 98 mmol/L (98-107); CREATINE KINASE 58 U/L (30-135); GLUCOSE 258 mg/dL (75-110); POTASSIUM 3.2 mmol/L (3.6-5.0); TOTAL PROTEIN 6.6 g/dL (6.3-8.2)
--- NOTE | 2020-06-25 21:18 | ER Document Report ---
ED Respiratory Problem - General Chief Complaint: Respiratory Distress Stated Complaint: RESPIRATORY DISTRESS Time Seen by Provider: 06/25/20 20:54 Primary Care Provider: BRITTNEY YANEZ FNP [Primary Care Provider] - Follow up in 1 week Notes: Patient is a 54-year-old female presents emergency department with a chief complaint of respiratory distress that started today. Patient is an everyday smoker. States that she currently vapes. She was brought in via EMS and her oxygen saturation was in the 70s. The rapid Covid tested her and this was negative. They also gave her magnesium, Solu-Medrol, and Ativan. She was placed on BiPAP. When I evaluated the patient, I took her off the BiPAP and her oxygen saturation went down to 92% on room air. Patient states that she does not wear oxygen. Patient was then placed back on 2 L nasal cannula. States that she has a slight cough. Has a history of COPD. TRAVEL OUTSIDE OF THE [place] 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 Denies: Hx Hypothyroidism Renal/ Medical History: Denies: Hx Peritoneal Dialysis GI Medical History: Denies: Hx Diverticulitis, Hx Gastroesophageal Reflux Disease, Hx Hiatal Hernia Musculoskeletal Medical History: Reports Hx Arthritis Psychiatric Medical History: Reports: Hx Depression Past Surgical History: Reports: Hx Section Review of Systems - Review of Systems Notes: REVIEW OF SYSTEMS: CONSTITUTIONAL : Denies recent illness. Denies recent unintentional weight loss. Denies fever, chills, or sweats. EENT: Denies eye, ear, throat, or mouth pain, discharge, or symptoms. Denies nasal or sinus congestion. CARDIOVASCULAR: Denies chest pain. RESPIRATORY: See HPI. GASTROINTESTINAL: Denies nausea, vomiting, and diarrhea. Denies abdominal pain. Denies constipation. GENITOURINARY: Denies difficulty urinating, burning, blood in urine, urgency or frequency. MUSCULOSKELETAL: Denies neck and back pain. Denies joint pain or swelling. SKIN: Denies rash, itchiness, or lesions HEMATOLOGIC : Denies easy bruising or bleeding. LYMPHATIC: Denies swollen, painful, enlarged glands. NEUROLOGICAL: Denies no numbness or tingling denies weakness. Denies headache. Denies altered mental status. Denies alteration in speech. PSYCHIATRIC: Denies stress, anxiety, alteration in sleep patterns, or depression. All other systems reviewed and negative. Physical Exam - Vital signs Vitals: Temp 97.6 F 06/25/20 20:28 - Notes Notes: PHYSICAL EXAMINATION: GENERAL: Appears well, healthy, well-nourished, no acute distress. HEAD: Normocephalic, atraumatic. EYES: PERRL, conjunctiva normal, all extraocular movements intact, sclera nonicteric ENT: Moist mucous membranes. NECK: Supple, no noticeable swelling, redness, rash. Normal range of motion. LUNGS: Diminished breath sounds bilaterally. CARDIOVASCULAR: S1-S2, regular rate, regular rhythm. Radial pulses 2+, normal. ABDOMEN: Normoactive bowel sounds. Soft, nontender, no guarding, no rebound tenderness, and no masses palpated. EXTREMITIES: Normal strength and range of motion, no pitting or edema. No cyanosis. NEUROLOGICAL: Moves all extremities upon command. Strength 5/5 in all ext remities. PSYCH: Normal mood, normal affect. SKIN: Warm, dry. No rash, lesions, ulcerations noted. Normal skin turgor. Course - Re-evaluation Re-evalutation: 06/25/20 22:42 Hematology shows a leukocytosis of 16,000 with a left shift of 75.3% neutrophils. No anemia noted. D-dimer is positive. We will send the patient for CTA of the chest. Blood gas shows a PO2 47.4 and O2 saturation of 83, this may be a venous blood gas. Regardless, the patient is requiring 2 L of oxygen, which the patient is not normally on oxygen. Lactic acid is 2.2. Potassium is 3.2, which the patient received potassium 4. BNP is unremarkable. Chest x-ray shows bilateral opacities. We will start the patient on Rocephin. 06/26/20 00:25 CT of the chest shows groundglass opacities, but better than previous CT back in March. Patient is requiring oxygen and she is currently on 2 L nasal cannula. Earlier the patient was taken off oxygen and her oxygen saturation went down to 85%. She was then placed back on 2 L. I spoke with Dr. Young. He will evaluate the patient. 06/26/20 01:21 Dr. Young evaluated the patient. Patient was taken off oxygen and her oxygen saturation was about 95% on room air. He is recommending the patient be started on Levaquin. The patient was evaluated during the global COVID-19 pandemic and that diagnosis was suspected/considered upon their initial presentation. Their evaluation, treatment and testing was consistent with current guidelines for patients who present with complaints or symptoms that may be related to COVID- 19. Follow-up precautions were given. Verbal discharge instructions were given to the patient. They verbalized understanding. They are stable for discharge. 06/26/20 01:47 The nurse was getting the patient ready for discharge and her oxygen saturation would drop down to 81% on room air. She was placed back on 2 L nasal cannula. Called Dr. Young. Patient will be admitted to the medical floor. - Vital Signs Vital signs: Temp Pulse Resp BP Pulse Ox 97.6 F 109 H 25 H 90/64 L 97 06/25/20 20:41 06/25/20 20:41 06/25/20 21:30 06/25/20 21:30 06/25/20 21:30 - Laboratory Results Result Diagrams: 06/25/20 20:35 06/25/20 20:35 Laboratory Results Interpreted: 06/25/20 06/25/20 06/25/20 20:35 20:35 20:35 WBC 16.0 H MCV 100 H RDW 14.6 H Absolute Neuts (auto) 12.1 H D-Dimer Carbonic Acid ABG pCO2 ABG pO2 ABG HCO3 ABG Total CO2 ABG O2 Saturation Potassium 3.2 L Carbon Dioxide 34 H Est GFR (MDRD) Non-Af 57 L Glucose 258 H Lactic Acid 2.2 H AST 38 H Alkaline Phosphatase 145 H 06/25/20 06/25/20 20:35 22:00 WBC MCV RDW Absolute Neuts (auto) D-Dimer 0.81 H Carbonic Acid 1.50 H ABG pCO2 49.7 H ABG pO2 47.4 L ABG HCO3 30.6 H ABG Total CO2 32.1 H ABG O2 Saturation 83.0 L Potassium Carbon Dioxide Est GFR (MDRD) Non-Af Glucose Lactic Acid AST Alkaline Phosphatase Critical Laboratory Results Reviewed: No Critical Results - Radiology Results Critical Radiology Results Reviewed: No Critical Results Critical Care Note - Critical Care Note Total time excluding time spent on procedures (mins): 35 Comments: Critical care time spent obtaining history from patient or surrogate, discussions with consultants, development of treatment plan with patient or surrogate, evaluation of patient's response to treatment, examination of patient, ordering and performing treatments and interventions, ordering and review of laboratory studies, re-evaluation of patient's condition, ordering and review of radiographic studies and review of old charts Discharge - Discharge Clinical Impression: COPD with exacerbation, Suspected COVID-19 virus infection Pneumonia Qualifiers: Pneumonia type: due to unspecified organism Laterality: unspecified laterality Lung location: unspecified part of lung Qualified Code(s): J18.9 - Pneumonia, unspecified organism Condition: Fair Disposition: ADMITTED INPATIENT [facility] Medical Floor Prescriptions: Prednisone [Deltasone 20 mg Tablet] 3 tab PO DAILY 5 Days #15 tablet Levofloxacin [Levaquin 750 mg Tablet] 750 mg PO DAILY #7 tablet
[2020-06-25] MEDS ORDERED: POTASSIUM CHLORIDE 20 MEQ PACKET PO ONE (21:22)
--- NOTE | 2020-06-25 22:03 | RADIOLOGY REPORT (SQ) ---
AP Portable chest: 06/25/2020 9:01 PM [employer] History: 54-year old patient with respiratory distress. Comparison: Chest radiograph performed 05/03/2020. Findings: The cardiomediastinal silhouette is normal in size. No pneumothorax is seen. There are bibasilar airspace opacities with trace effusions. Impression: There are bibasilar airspace opacities with trace effusions. These may reflect atelectasis or infection.
[2020-06-25 22:27] LABS: ARTERIAL BLOOD BASE EXCESS 4.9 mmol/L; ARTERIAL BLOOD HCO3 30.6 mmol/L (20-24); ARTERIAL BLOOD PCO2 49.7 mmHg (35-45); ARTERIAL BLOOD PH 7.41 (7.35-7.45); ARTERIAL BLOOD PO2 47.4 mmHg (80-100); ARTERIAL BLOOD TOTAL CO2 32.1 mmol/L (21-25)
[2020-06-25 22:30] LABS: ARTERIAL BLOOD FIO2 2L
[2020-06-25] MEDS ORDERED: CEFTRIAXONE 1 GM/D5W RTU 1 GM/50 ML RTUPB IV ONE (22:39)
[2020-06-25] MEDS ORDERED: NORMAL SALINE 1000 ML 1,000 ML IV ONE (22:43)
--- NOTE | 2020-06-26 00:09 | RADIOLOGY REPORT (SQ) ---
EXAM DESCRIPTION: CT CHEST WITH INTRAVENOUS CONTRAST CLINICAL HISTORY: Shortness of breath COMPARISON: March 14, 2020 TECHNIQUE: CT of the chest was performed with intravenous contrast using pulmonary embolism protocol, followed by CTA of the pulmonary arterial vasculature, with 3D reconstruction of the pulmonary arterial vasculature. The patient was injected with 75 mL Omnipaque [address] exam was performed according to our departmental dose-optimization program, which includes one or more of the following dose reduction techniques: automated exposure control, adjustment of the mA and/or kV according to patient size, and/or use of iterative reconstruction technique. FINDINGS: There are no filling defects in the main pulmonary trunk, first order or the visualized lower order branches of the bilateral pulmonary arteries, to suggest pulmonary embolism. There is no evidence of clinically significant thoracic aortic aneurysm or thoracic aortic dissection. There is no evidence of clinically significant pericardial effusion. Scattered prominent mediastinal lymph nodes are nonspecific and may be reactive in nature. When compared with prior CT there is significant interval improvement in previously seen scattered peripheral groundglass opacities. On the current exam, there are trace bilateral pleural effusions with adjacent dependent atelectatic changes. A few small areas of groundglass opacity remain predominantly within the lingula. No suspicious lytic or blastic osseous lesions are identified. The visualized upper abdominal structures seen on the exam appear unremarkable. IMPRESSION: 1. No CT evidence of acute pulmonary embolism. 2. Compared with prior CT significant interval improvement in scattered groundglass opacities. On the current exam there is trace bilateral pleural effusions with adjacent dependent atelectatic changes and minimal residual groundglass opacities predominantly within the lingula.
[2020-06-26] MEDS ORDERED: IPRATROPIUM/ALBUTEROL 0.5-2.5 MG/3 ML AMPUL NEB PRN (01:48)
[2020-06-26] MEDS ORDERED: ACETAMINOPHEN 325 MG TABLET PO PRN (01:48)
--- NOTE | 2020-06-26 02:25 | PDOC H&P ---
History of Present Illness Admission Date/PCP: YUMIKO SETHI Patient complains of: Shortness of breath History of Present Illness: ELIZABETH RAMIREZ is a 54 year old female with a history of COPD who now presents with 2 days duration of worsening shortness of breath. She states that she has chronic cough which has not changed from her baseline and she also has not noticed any change in the color, amount or consistency of her sputum production. She denies any fever, chills, chest pain, hypertension, nausea, vomiting, abdominal pain or diarrhea. She was saturating around mid 70s when EMS initially found her and she was given Solu-Medrol, magnesium sulfate and breathing treatment with DuoNeb. She was placed on BiPAP and was transferred to the ED. During my exam patient was on 2 L intranasal oxygen breathing comfortably and saturating mid 90s. Her oxygenation drops to 88% with mild exertion. She had a rapid Covid test during transfer by EMS and was reported as negative. Past Medical History Cardiac Medical History: Denies: Congestive Heart Failure, Coronary Artery Disease, Myocardial Infarc tion Pulmonary Medical History: Reports: Chronic Obstructive Pulmonary Disease (COPD) Endocrine Medical History: Reports: Diabetes Mellitus Type 2 - with neuropathy Denies: Hypothyroidism GI Medical History: Denies: Diverticulitis, Gastroesophageal Reflux Disease, Hiatal Hernia Musculoskeltal Medical History: Reports: Arthritis Psychiatric Medical History: Reports: Depression Hematology: Denies: Anemia, Bleeding Tendencies Past Surgical History Past Surgical History: Reports: Section Social History Information Source: Patient Smoking Status: Unknown if Ever Smoked Electronic Cigarette use?: Yes - She vapes Frequency of Alcohol Use: Occasional Hx Recreational Drug Use: Yes Drugs: None Hx Prescription Drug Abuse: No - Advance Directive Resuscitation Status: Full Code Family History Family History: Reviewed & Not Pertinent, Hypertension Parental Family History Reviewed: Yes Children Family History Reviewed: Yes Sibling(s) Family History Reviewed.: Yes Medication/Allergy Home Medications: Fluoxetine HCl [Prozac] 80 mg PO QAM 01/31/20 Gabapentin [Neurontin] 800 mg PO TID 01/31/20 Meloxicam [Mobic] 15 mg PO DAILY 01/31/20 Albuterol Sulfate [Albuterol Sulfate Hfa] 1 puff IH Q4HP PRN 03/03/20 Albuterol Sulfate [Ventolin 0.083% Neb 2.5 mg/3 mL Ampul] 2.5 mg NEB Q6HP PRN 03/14/20 Levofloxacin [Levaquin 500 mg Tablet] 500 mg PO DAILY 2 Days #2 tablet 03/18/20 Prednisone [Deltasone 20 mg Tablet] 20 mg PO Q12 12 Days #24 tablet 03/18/20 Prednisone [Deltasone 20 mg Tablet] 3 tab PO DAILY 5 Days #15 tablet 05/03/20 Levofloxacin [Levaquin 750 mg Tablet] 750 mg PO DAILY #7 tablet 06/26/20 Prednisone [Deltasone 20 mg Tablet] 3 tab PO DAILY 5 Days #15 tablet 06/26/20 Allergies/Adverse Reactions: No Known Allergies Allergy (Verified 06/10/20 07:46) Review of Systems Constitutional: ABSENT: chills, fever(s), headache(s), weight gain, weight loss Eyes: ABSENT: visual disturbances Ears: ABSENT: hearing changes Nose, Mouth, and Throat: ABSENT: mouth pain, sore throat, vertigo, other Cardiovascular: PRESENT: as per HPI Respiratory: PRESENT: as per HPI Gastrointestinal: ABSENT: abdominal pain, constipation, diarrhea, hematemesis, hematochezia, nausea, vomiting Genitourinary: ABSENT: dysuria, hematuria Musculoskeletal: ABSENT: joint swelling Integumentary: ABSENT: rash, wounds Neurological: ABSENT: abnormal gait, abnormal speech, confusion, dizziness, focal weakness, syncope Psychiatric: ABSENT: anxiety, depression, homidical ideation, suicidal ideation Endocrine: ABSENT: cold intolerance, heat intolerance, polydipsia, polyuria Hematologic/Lymphatic: ABSENT: easy bleeding, easy bruising Physical Exam Vital Signs: Temp Pulse Resp BP Pulse Ox 97.6 F 109 H 25 H 90/64 L 97 06/25/20 20:41 06/25/20 20:41 06/25/20 21:30 06/25/20 21:30 06/25/20 21:30 Intake & Output 06/24/20 06/25/20 06/26/20 06:59 06:59 06:59 Intake Total 1050 Balance 1050 Weight 64.4 kg Additional comments: GENERAL APPEARANCE: Alert and oriented x3, in no acute distress HEENT: Normocephalic and atraumatic. No scleral icterus. Moist oral mucosa NECK: Supple. No lymphadenopathy or tenderness. No JVD CHEST: Symmetric. Nontender to palpation. LUNGS: Clear with good air entry bilaterally. Has bibasilar crackles. HEART: Regular rate and rhythm with normal S1 and S2. No murmurs, gallops, or rubs. ABDOMEN: soft, active bowel sounds, no direct or rebound tenderness. No organomegaly detected. EXTREMITIES: No cyanosis, clubbing, or edema. MUSCULOSKELETAL: No deformity, atrophy or swelling noted PSYCHIATRIC: Recent and remote memory is intact. Appropriate mood and affect. SKIN: Warm, dry, and well perfused. No lesions or rashes are noted. NEUROLOGIC: No focal sensory or motor deficits are noted. Results Laboratory Results: 06/25/20 20:35 06/25/20 20:35 06/25/20 06/25/20 06/25/20 20:35 20:35 20:35 WBC 16.0 H RBC 3.73 Hgb 12.3 Hct 37.3 MCV 100 H MCH 33.0 MCHC 33.0 RDW 14.6 H Plt Count 369 Seg Neutrophils % 75.3 Carbonic Acid HCO3/H2CO3 Ratio ABG pH ABG pCO2 ABG pO2 ABG HCO3 ABG O2 Saturation ABG Base Excess FiO2 Sodium 139.1 Potassium 3.2 L Chloride 98 Carbon Dioxide 34 H Anion Gap 7 BUN 15 Creatinine 1.01 Est GFR ( Amer) > 60 Glucose 258 H Lactic Acid 2.2 H Calcium 9.0 Total Bilirubin 0.4 AST 38 H Alkaline Phosphatase 145 H Total Protein 6.6 Albumin 3.6 06/25/20 22:00 WBC RBC Hgb Hct MCV MCH MCHC RDW Plt Count Seg Neutrophils % Carbonic Acid 1.50 H HCO3/H2CO3 Ratio 20:1 ABG pH 7.41 ABG pCO2 49.7 H ABG pO2 47.4 L ABG HCO3 30.6 H ABG O2 Saturation 83.0 L ABG Base Excess 4.9 FiO2 2L Sodium Potassium Chloride Carbon Dioxide Anion Gap BUN Creatinine Est GFR ( Amer) Glucose Lactic Acid Calcium Total Bilirubin AST Alkaline Phosphatase Total Protein Albumin 06/25/20 06/25/20 06/25/20 20:35 20:35 20:35 Creatine Kinase 58 Troponin I < 0.012 NT-Pro-B Natriuret Pep 72 Impressions: Chest/Abdomen CTA 06/25/20 22:[address]: [address] evidence of acute pulmonary embolism. 2. Compared with prior CT significant interval improvement in scattered groundglass opacities. On the current exam there is trace bilateral pleural effusions with adjacent dependent atelectatic changes and minimal residual groundglass opacities predominantly within the lingula. Assessment and Plan - Diagnosis (1) Acute respiratory failure with hypoxia Is this a current diagnosis for this admission?: Yes Plan: Patient was brought into the ED for respiratory distress She was saturating in the lower 70s and had diffuse wheezing when she was initially evaluated by EMS She was given Solu-Medrol, breathing treatment and magnesium sulfate in route to the ED and was placed on BiPAP In my evaluation patient has bibasilar crackles with relatively decreased air entry but no wheezing was noted Continue she is saturating mid 90s on 2 L intranasal oxygen Has leukocytosis of 16k with 75% neutrophils and 2.4 eosinophil but patient has been on chronic steroid the last use being 2 days back CTA chest showed no PE but there was bibasilar groundglass opacities with interval improvement from previous study in March 2020 ABG showed pH/CO2/PO2 of 7.4 on 2 L oxygen Continued her on breathing treatment with DuoNeb's and prednisone 40 mg daily Placed her on Levaquin 750 mg IV daily Closely monitor her respiratory status (2) COPD with exacerbation Is this a current diagnosis for this admission?: Yes Plan: Patient reports that she has a history of COPD Now presents with worsening of shortness of breath and was on a BiPAP on presentation Currently has improved and he is on intranasal oxygen ABG was significant for hypoxia : pH/PCO2/PO2 of 7.4 Placed her on prednisone, Levaquin, breathing treatment Continue intranasal oxygen Incentive spirometry May need controller medications on discharge in addition to rescue inhaler (3) Hypokalemia Is this a current diagnosis for this admission?: Yes Plan: Serum potassium was 3.2 on presentation Was given potassium chloride 40 mEq p.o. at the ER Monitor electrolytes and replete as necessary (4) Elevated lactic acid level Is this a current diagnosis for this admission?: Yes Plan: Lactic acid level was mildly elevated at 2.2 Likely due to hypoxia as the patient no clear signs of systemic infection apart from leukocytosis which could be due to steroid use Continue IV hydration Repeat lactic acid level in the a.m. (5) Suspected COVID-19 virus infection Is this a current diagnosis for this admission?: Yes Plan: presents with acute onset respiratory symptoms She denies any fever, chills, nausea, vomiting or body aches Presenting symptoms are rather likely to be due to COPD exacerbation as the patient has had multiple similar presentations in the past few months CT chest was concerning for findings consistent with viral pneumonia Will screen her for Covid [address] under airborne isolation until results are back (6) Leukocytosis Qualifiers: Leukocytosis type: bandemia Qualified Code(s): D72.825 - Bandemia Is this a current diagnosis for this admission?: Yes Plan: Likely to be due to steroid use Currently on antibiotic We will continue monitoring CBC - Time Time Spent with patient: 35 or more minutes Total Critical Time (Minutes): 45 Medications reviewed and adjusted accordingly: Yes Anticipated Discharge Disposition: Home, Self Care Anticipated Discharge Timeframe: within 48 hours - Inpatient Certification Medical Necessity: Failure to Improve With Outpatient Therapy, Need Close Monitoring Due to Risk of Patient Decompensation, Need for Nebulizer Therapy and Monitoring of Response, Risk of Complication if Not Cared For in Hospital Post Hospital Care: D/C or Transfer Summary
[2020-06-26] MEDS ORDERED: LEVOFLOXACIN 750 MG/D5W RTU 750 MG/150 ML RTUPB IV ONE (03:00)
[2020-06-26 07:20] LABS: ANION GAP 8 (5-19); BLOOD UREA NITROGEN 13 mg/dL (7-20); CALCIUM 8.9 mg/dL (8.4-10.2); CHLORIDE 106 mmol/L (98-107); GLUCOSE 174 mg/dL (75-110)
[2020-06-26 07:28] LABS: CARBON DIOXIDE 23 mmol/L (22-30); POTASSIUM 4.9 mmol/L (3.6-5.0)
--- NOTE | 2020-06-26 07:53 | EKG REPORT ---
SEVERITY:- ABNORMAL ECG - SINUS TACHYCARDIA PROBABLE LEFT ATRIAL ABNORMALITY NONSPECIFIC ST-T CHANGES , DIFFUSE PROLONGED QT INTERVAL : Confirmed by: Pal Lyons MD 26-Jun-2020 07:53:14
[2020-06-26 08:19] LABS: HEMATOCRIT 36.4 % (36.0-47.0); HEMOGLOBIN 12.2 g/dL (12.0-15.5); MEAN CORPUSCULAR HGB CONC 33.5 g/dL (32.0-36.0); MEAN CORPUSCULAR VOLUME 99 fl (80-97); PLATELET COUNT 303 10^3/uL (150-450); RED CELL DISTRIBUTION WIDTH 14.8 % (11.5-14.0); WHITE BLOOD COUNT 8.6 10^3/uL (4.0-10.5)
[2020-06-26 08:26] LABS: ABSOLUTE LYMPHOCYTES# (MANUAL) 0.5 10^3/uL (0.5-4.7); BASOPHILS % (MANUAL) 0 % (0-2); EOSINOPHILS % (MANUAL) 0 % (0-6); LYMPHOCYTES % (MANUAL) 5 % (13-45); MONOCYTES % (MANUAL) 0 % (3-13); SEGMENTED NEUTROPHILS % (MAN) 94 % (42-78); TOTAL CELLS COUNTED 100
[2020-06-26 08:29] LABS: PLATELET COMMENT ADEQUATE; RBC MORPHOLOGY COMMENT NORMO-CYTIC/CHROMIC
[2020-06-26] MEDS: FLUTICASONE/VILANTEROL 100-25 MCG/DOSE IH SCH (10:35)
[2020-06-26] MEDS: ENOXAPARIN SODIUM INJ 40 MG/0.4 ML DISP.SYRIN SUBCUT SCH (10:35)
[2020-06-26] MEDS: PREDNISONE 20 MG TABLET PO SCH (10:35)
[2020-06-26 13:56] LABS: APPEARANCE,URINE CLEAR; BILIRUBIN,URINE NEGATIVE (NEGATIVE); COLOR,URINE STRAW; GLUCOSE, URINE NEGATIVE (NEGATIVE); KETONES,URINE NEGATIVE (NEGATIVE); LEUKOCYTE ESTERASE,URINE NEGATIVE (NEGATIVE); NITRITE,URINE NEGATIVE (NEGATIVE); PROTEIN,URINE NEGATIVE (NEGATIVE); URINE SPECIFIC GRAVITY 1.011; UROBILINOGEN,URINE NEGATIVE mg/dL (<2.0)
[2020-06-26] MEDS ORDERED: (PENDING PHARMACY ID) (Gabapentin [Neurontin] 800 MG Tablet) PO SCH (14:00)
--- NOTE | 2020-06-26 14:42 | PDOC PROGRESS REPORT ---
Subjective Date:: 06/26/20 Subjective:: ELIZABETH RAMIREZ is a 54 year old female with a history of COPD who now prese nts with 2 days duration of worsening shortness of breath. She states that she has chronic cough which has not changed from her baseline and she also has not noticed any change in the color, amount or consistency of her sputum production. She denies any fever, chills, chest pain, hypertension, nausea, vomiting, abdominal pain or diarrhea. She was saturating around mid 70s when EMS initially found her and she was given Solu-Medrol, magnesium sulfate and breathing treatment with DuoNeb. She was placed on BiPAP and was transferred to the ED. During my exam patient was on 2 L intranasal oxygen breathing comfortably and saturating mid 90s. Her oxygenation drops to 88% with mild exertion. She had a rapid Covid test during transfer by EMS and was reported as negative. D2 Hospital stay. Patient was seen and examined at bedside. She is still on 2L of O2 via NC saturating 95%. She reports that her breathing is much better. She stated that she stopped taking oral prednisone about 1 week prior to developing shortness of breath. She was previously on it for 4 weeks when she abruptly stopped. She admits to using vaping machine but says she stopped smoking cigarettes a year ago. She has not seen Dr. Bender since her last discharge from the hospital. Reason For Visit: ACUTE HYPOXIC RESPIRATORY FAILURE,COPD Physical Exam Vital Signs: Temp Pulse Resp BP Pulse Ox 98.1 F 95 15 153/84 H 99 06/26/20 11:18 06/26/20 12:29 06/26/20 12:29 06/26/20 11:18 06/26/20 12:29 Intake & Output 06/25/20 06/26/20 06/27/20 06:59 06:59 06:59 Intake Total 1200 280 Balance 1200 280 Weight 66.8 kg General appearance: PRESENT: cooperative, mild distress Head exam: PRESENT: atraumatic, normocephalic Eye exam: PRESENT: EOMI, PERRLA Mouth exam: PRESENT: moist Neck exam: PRESENT: full ROM Respiratory exam: PRESENT: symmetrical, unlabored, wheezes. ABSENT: tachypnea Cardiovascular exam: PRESENT: RRR, +S1, +S2 GI/Abdominal exam: PRESENT: normal bowel sounds, soft. ABSENT: rebound, tenderness Extremities exam: PRESENT: full ROM Musculoskeletal exam: PRESENT: full ROM Neurological exam: PRESENT: alert, awake, oriented to person, oriented to place, oriented to time, oriented to situation Psychiatric exam: PRESENT: normal mood Skin exam: PRESENT: normal color Results Laboratory Results: 06/26/20 06:49 06/26/20 06:49 06/25/20 06/25/20 06/25/20 20:35 20:35 20:35 WBC 16.0 H RBC 3.73 Hgb 12.3 Hct 37.3 MCV 100 H MCH 33.0 MCHC 33.0 RDW 14.6 H Plt Count 369 Seg Neutrophils % 75.3 Carbonic Acid HCO3/H2CO3 Ratio ABG pH ABG pCO2 ABG pO2 ABG HCO3 ABG O2 Saturation ABG Base Excess FiO2 Sodium 139.1 Potassium 3.2 L Chloride 98 Carbon Dioxide 34 H Anion Gap 7 BUN 15 Creatinine 1.01 Est GFR ( Amer) > 60 Glucose 258 H Lactic Acid 2.2 H Calcium 9.0 Total Bilirubin 0.4 AST 38 H Alkaline Phosphatase 145 H Total Protein 6.6 Albumin 3.6 06/25/20 06/26/20 06/26/20 22:00 06:49 06:49 WBC 8.6 RBC 3.70 L Hgb 12.2 Hct 36.4 MCV 99 H MCH 33.0 MCHC 33.5 RDW 14.8 H Plt Count 303 Seg Neutrophils % Not Reportable Carbonic Acid 1.50 H HCO3/H2CO3 Ratio 20:1 ABG pH 7.41 ABG pCO2 49.7 H ABG pO2 47.4 L ABG HCO3 30.6 H ABG O2 Saturation 83.0 L ABG Base Excess 4.9 FiO2 2L Sodium 136.5 L Potassium 4.9 D Chloride 106 Carbon Dioxide 23 D Anion Gap 8 BUN 13 Creatinine 0.55 Est GFR ( Amer) > 60 Glucose 174 H Lactic Acid Calcium 8.9 Total Bilirubin AST Alkaline Phosphatase Total Protein Albumin 06/26/20 06:49 WBC RBC Hgb Hct MCV MCH MCHC RDW Plt Count Seg Neutrophils % Carbonic Acid HCO3/H2CO3 Ratio ABG pH ABG pCO2 ABG pO2 ABG HCO3 ABG O2 Saturation ABG Base Excess FiO2 Sodium Potassium Chloride Carbon Dioxide Anion Gap BUN Creatinine Est GFR ( Amer) Glucose Lactic Acid 2.2 H Calcium Total Bilirubin AST Alkaline Phosphatase Total Protein Albumin 06/25/20 06/25/20 06/25/20 20:35 20:35 20:35 Creatine Kinase 58 Troponin I < 0.012 NT-Pro-B Natriuret Pep 72 Impressions: Chest/Abdomen CTA 06/25/20 22:39 IMPRESSION: 1. No CT evidence of acute pulmonary embolism. 2. Compared with prior CT significant interval improvement in scattered groundglass opacities. On the current exam there is trace bilateral pleural effusions with adjacent dependent atelectatic changes and minimal residual groundglass opacities predominantly within the lingula. Assessment and Plan - Diagnosis (1) Acute respiratory failure with hypoxia Is this a current diagnosis for this admission?: Yes Plan: Saturating in the lower 70s and had diffuse wheezing when she was initially evaluated by EMS She was given Solu-Medrol, breathing treatment and magnesium sulfate in route to the ED and was placed on BiPAP In my evaluation patient has bibasilar crackles with relatively decreased air entry but no wheezing was noted Continue she is saturating mid 90s on 2 L intranasal oxygen Has leukocytosis of 16k with 75% neutrophils and 2.4 eosinophil but patient has been on chronic steroid the last use being 2 days back CTA chest showed no PE but there was bibasilar groundglass opacities with interval improvement from previous study in March 2020 ABG showed pH/CO2/PO2 of 7.4 on 2 L oxygen Continued her on breathing treatment with DuoNeb's and prednisone 40 mg daily Placed her on Levaquin 750 mg IV daily Closely monitor her respiratory status (2) COPD with exacerbation Is this a current diagnosis for this admission?: Yes Plan: Patient reports that she has a history of COPD Now presents with worsening of shortness of breath and was on a BiPAP on presentation Currently has improved and he is on intranasal oxygen ABG was significant for hypoxia : pH/PCO2/PO2 of 7.4 continue prednisone, Levaquin, breathing treatment started on trelegy Continue intranasal oxygen Incentive spirometry May need controller medications on discharge in addition to rescue inhaler (3) Elevated lactic acid level Is this a current diagnosis for this admission?: Yes Plan: Lactic acid level was mildly elevated at 2.2 Likely due to duoneb treatments Continue IV hydration Repeat lactic acid level in the a.m. (4) Hypokalemia Is this a current diagnosis for this admission?: Yes Plan: Serum potassium was 3.2 on presentation Was given potassium chloride 40 mEq p.o. 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 Bender - continue steroids for now. (7) Engages in vaping Is this a current diagnosis for this admission?: Yes Plan: - advised to stop vaping as this can aggravate her COPD and possibly eosi nophilic pneumonia - Time Time Spent with patient: 25-34 minutes Medications reviewed and adjusted accordingly: Yes Anticipated Discharge Disposition: Home, Self Care Anticipated Discharge Timeframe: within 48 hours
[2020-06-26] MEDS: GABAPENTIN 400 MG CAPSULE PO SCH ×2 (14:53→21:33)
[2020-06-26] MEDS ORDERED: FLUOXETINE HCL 20 MG CAPSULE PO ONE (15:00)
[2020-06-26] MEDS ORDERED: MELATONIN 5 MG TABLET PO PRN (21:17)
[2020-06-26] MEDS ORDERED: LEVOFLOXACIN 750 MG/D5W RTU 750 MG/150 ML RTUPB IV SCH (22:00)
[2020-06-27] MEDS: GABAPENTIN 400 MG CAPSULE PO SCH (06:15)
[2020-06-27] MEDS ORDERED: (PENDING PHARMACY ID) (Fluoxetine Hcl [Prozac] 40 MG Capsule) PO SCH (08:00)
[2020-06-27] MEDS ORDERED: FLUOXETINE HCL 20 MG CAPSULE PO SCH (08:00)
[2020-06-27] MEDS: PREDNISONE 20 MG TABLET PO SCH (10:38)
[2020-06-27] MEDS: FLUTICASONE/VILANTEROL 100-25 MCG/DOSE IH SCH (10:38)
[2020-06-27] MEDS: ENOXAPARIN SODIUM INJ 40 MG/0.4 ML DISP.SYRIN SUBCUT SCH (10:41)
[2020-06-27 12:03] VITALS: BP 120/83
--- NOTE | 2020-06-28 06:53 | PDOC DISCHARGE SUMMARY ---
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 for this admission?: Yes (7) Engages in vaping Is this a current diagnosis for this admission?: Yes - Assessment Summary: (1) Acute respiratory failure with hypoxia Is this a current diagnosis for this admission?: Yes Plan: Saturating in the lower 70s and had diffuse wheezing when she was initially evaluated by EMS She was given Solu-Medrol, breathing treatment and magnesium sulfate in route to the ED and was placed on BiPAP In my evaluation patient has bibasilar crackles with relatively decreased air entry but no wheezing was noted Continue she is saturating mid 90s on 2 L intranasal oxygen Has leukocytosis of 16k with 75% neutrophils and 2.4 eosinophil but patient has been on chronic steroid the last use being 2 days back CTA chest showed no PE but there was bibasilar groundglass opacities with interval improvement from previous study in March 2020 ABG showed pH/CO2/PO2 of 7.4 on 2 L oxygen Continued her on breathing treatment with DuoNeb's and prednisone 40 mg daily Placed her on Levaquin 750 mg IV daily Closely monitor her respiratory status (2) COPD with exacerbation Is this a current diagnosis for this admission?: Yes Plan: Patient reports that she has a history of COPD Now presents with worsening of shortness of breath and was on a BiPAP on presentation Currently has improved and he is on intranasal oxygen ABG was significant for hypoxia : pH/PCO2/PO2 of 7.4 continue prednisone, Levaquin, breathing treatment started on trelegy Continue intranasal oxygen Incentive spirometry May need controller medications on discharge in addition to rescue inhaler (3) Elevated lactic acid level Is this a current diagnosis for this admission?: Yes Plan: Lactic acid level was mildly elevated at 2.2 Likely due to duoneb treatments Continue IV hydration Repeat lactic acid level in the a.m. (4) Hypokalemia Is this a current diagnosis for this admission?: Yes Plan: Serum potassium was 3.2 on presentation Was given potassium chloride 40 mEq p.o. 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 Bender - continue steroids for now. (7) Engages in vaping Is this a current diagnosis for this admission?: Yes Plan: - advised to stop vaping as this can aggravate her COPD and possibly eosinophilic pneumonia - Additional Information Resuscitation Status: Full Code Discharge Diet: As Tolerated Discharge Activity: Activity As Tolerated Referrals: SHABBIR BENDER MD [ACTIVE PROVISIONAL STAFF] - 07/11/20 2:00 pm BRITTNEY YANEZ FNP [Primary Care Provider] - 06/27/20 10:30 am (THE OFFICE WILL CONTACT THE PATIENT WITH THE FOLLOW UP APPT.) Prescriptions: Albuterol Sulfate [Albuterol Sulfate Hfa] 6.7 gm IH DAILY 30 Days #2 hfa.aer.ad Umeclidinium Brm/Vilanterol Tr [Anoro Ellipta 62.5-25 Mcg INH] 1 each IH DAILY 30 Days #1 blst.w.dev Prednisone [Deltasone 20 mg Tablet] 40 mg PO DAILY 30 Days #40 tablet Levofloxacin [Levaquin 750 mg Tablet] 750 mg PO DAILY 3 Days #3 tablet Home Medications: Fluoxetine HCl [Prozac] 80 mg PO QAM 01/31/20 Gabapentin [Neurontin] 800 mg PO TID 01/31/20 Albuterol Sulfate [Albuterol Sulfate Hfa] 6.7 gm IH DAILY 30 Days #2 hfa.aer.ad 06/27/20 Levofloxacin [Levaquin 750 mg Tablet] 750 mg PO DAILY 3 Days #3 tablet 06/27/20 Prednisone [Deltasone 20 mg Tablet] 40 mg PO DAILY 30 Days #40 tablet 06/27/20 Umeclidinium Brm/Vilanterol Tr [Anoro Ellipta 62.5-25 Mcg INH] 1 each IH DAILY 30 Days #1 blst.w.dev 06/27/20 History of Present Illiness History of Present Illness: ELIZABETH RAMIREZ is a 54 year old female, with a history of COPD who now presents with 2 days duration of worsening shortness of breath. She states that she has chronic cough which has not changed from her baseline and she also has not noticed any change in the color, amount or consistency of her sputum production. She denies any fever, chills, chest pain, hypertension, nausea, vomiting, abdominal pain or diarrhea. She was saturating around mid 70s when EMS initially found her and she was given Solu-Medrol, magnesium sulfate and breathing treatment with DuoNeb. She was placed on BiPAP and was transferred to the ED. During my exam patient was on 2 L intranasal oxygen breathing comfortably and saturating mid 90s. Her oxygenation drops to 88% with mild exertion. She had a rapid Covid test during transfer by EMS and was reported as negative. Hospital Course Hospital Course: D2 Hospital stay. Patient was seen and examined at bedside. She is still on 2L of O2 via [place] saturating 95%. She reports that her breathing is much better. She stated that she stopped taking oral prednisone about 1 week prior to developing shortness of breath. She was previously on it for 4 weeks when she abruptly stopped. She admits to using vaping machine but says she stopped smoking cigarettes a year ago. She has not seen Dr. Bender since her last discharge from the hospital. D3 hospital stay 06/27/20 patient was seen and examined at bedside. She is completely off O2 and saturating 96%. She was told to follow up with Dr. Bender regarding her possible eosinophilic pneumonia and steroid taper. She was also told to stop smoking. She was discharged on prednisone taper for 1 month. Physical Exam Vital Signs: Temp Pulse Resp BP Pulse Ox 97.3 F 75 18 120/83 97 06/27/20 11:51 06/27/20 11:51 06/27/20 11:51 06/27/20 11:51 06/27/20 11:51 Intake & Output 06/26/20 06/27/20 06/28/20 06:59 06:59 06:59 Intake Total 1200 780 Balance 1200 780 Weight 66.8 kg 65 kg General appearance: PRESENT: no acute distress, cooperative Head exam: PRESENT: atraumatic, normocephalic Eye exam: PRESENT: EOMI, PERRLA Mouth exam: PRESENT: moist Neck exam: PRESENT: full ROM Respiratory exam: PRESENT: decreased breath sounds, symmetrical, unlabored Cardiovascular exam: PRESENT: RRR, +S1, +S2 GI/Abdominal exam: PRESENT: normal bowel sounds, soft. ABSENT: rebound, tenderness Extremities exam: PRESENT: full ROM Musculoskeletal exam: PRESENT: full ROM Neurological exam: PRESENT: alert, awake, oriented to person, oriented to place, oriented to time, oriented to situation Psychiatric exam: PRESENT: normal mood Skin exam: PRESENT: normal color Results Laboratory Results: WBC 8.6 10^3/uL (4.0-10.5) 06/26/20 06:49 RBC 3.70 10^6/uL (3.72-5.28) L 06/26/20 06:49 Hgb 12.2 g/dL (12.0-15.5) 06/26/20 06:49 Hct 36.4 % (36.0-47.0) 06/26/20 06:49 MCV 99 fl (80-97) H 06/26/20 06:49 MCH 33.0 pg (27.0-33.4) 06/26/20 06:49 MCHC 33.5 g/dL (32.0-36.0) 06/26/20 06:49 RDW 14.8 % (11.5-14.0) H 06/26/20 06:49 Plt Count 303 10^3/uL (150-450) 06/26/20 06:49 Lymph % (Auto) Not Reportable 06/26/20 06:49 [place] % (Auto) Not Reportable 06/26/20 06:49 Eos % (Auto) Not Reportable 06/26/20 06:49 Baso % (Auto) Not Reportable 06/26/20 06:49 Absolute Neuts (auto) Not Reportable 06/26/20 06:49 Absolute Lymphs (auto) Not Reportable 06/26/20 06:49 Absolute Monos (auto) Not Reportable 06/26/20 06:49 Absolute Eos (auto) Not Reportable 06/26/20 06:49 Absolute Basos (auto) Not Reportable 06/26/20 06:49 Total Counted 100 06/26/20 06:49 Seg Neutrophils % Not Reportable 06/26/20 06:49 Seg Neuts % (Manual) 94 % (42-78) H 06/26/20 06:49 Lymphocytes % (Manual) 5 % (13-45) L 06/26/20 06:49 Atypical Lymphs % 1 % (0) 06/26/20 06:49 Monocytes % (Manual) 0 % (3-13) L 06/26/20 06:49 Eosinophils % (Manual) 0 % (0-6) 06/26/20 06:49 Basophils % (Manual) 0 % (0-2) 06/26/20 06:49 Abs Neuts (Manual) 8.1 10^3/uL (1.7-8.2) 06/26/20 06:49 Abs Lymphs (Manual) 0.5 10^3/uL (0.5-4.7) 06/26/20 06:49 Abs Monocytes (Manual) 0.0 10^3/uL (0.1-1.4) L 06/26/20 06:49 Absolute Eos (Manual) 0.0 10^3/uL (0.0-0.6) 06/26/20 06:49 Abs Basophils (Manual) 0.0 10^3/uL (0.0-0.2) 06/26/20 06:49 Platelet Comment ADEQUATE 06/26/20 06:49 RBC Morph Comment NORMO-CYTIC/CHROMIC 06/26/20 06:49 D-Dimer 0.81 ug/mL (0.00-0.50) H 06/25/20 20:35 Carbonic Acid 1.50 mmol/L (1.05-1.35) H 06/25/20 22:00 HCO3/H2CO3 Ratio 20:1 06/25/20 22:00 ABG pH 7.41 (7.35-7.45) 06/25/20 22:00 ABG pCO2 49.7 mmHg (35-45) H 06/25/20 22:00 ABG pO2 47.4 mmHg (80-100) L 06/25/20 22:00 ABG HCO3 30.6 mmol/L (20-24) H 06/25/20 22:00 ABG Total CO2 32.1 mmol/L (21-25) H 06/25/20 22:00 ABG O2 Saturation 83.0 % (94-98) L 06/25/20 22:00 ABG Base Excess 4.9 mmol/L 06/25/20 22:00 FiO2 2L 06/25/20 22:00 Sodium 136.5 mmol/L (137-145) L 06/26/20 06:49 Potassium 4.9 mmol/L (3.6-5.0) D 06/26/20 06:49 Chloride 106 mmol/L (98-107) 06/26/20 06:49 Carbon Dioxide 23 mmol/L (22-30) D 06/26/20 06:49 Anion Gap 8 (5-19) 06/26/20 06:49 BUN 13 mg/dL (7-20) 06/26/20 06:49 Creatinine 0.55 mg/dL (0.52-1.25) 06/26/20 06:49 Est GFR ( Amer) > 60 (>60) 06/26/20 06:49 Est GFR (MDRD) Non-Af > 60 (>60) 06/26/20 06:49 Glucose 174 mg/dL (75-110) H 06/26/20 06:49 Lactic Acid 1.0 mmol/L (0.7-2.1) 06/26/20 15:09 Calcium 8.9 mg/dL (8.4-10.2) 06/26/20 06:49 Total Bilirubin 0.4 mg/dL (0.2-1.3) 06/25/20 20:35 Direct Bilirubin 0.3 mg/dL (0.0-0.4) 06/25/20 20:35 Neonat Total Bilirubin Not Reportable 06/25/20 20:35 Neonat Direct Bilirubin Not Reportable 06/25/20 20:35 Neonat Indirect Bili Not Reportable 06/25/20 20:35 AST 38 U/L (14-36) H 06/25/20 20:35 ALT 32 U/L (<35) 06/25/20 20:35 Alkaline Phosphatase 145 U/L (38-126) H 06/25/20 20:35 Creatine Kinase 58 U/L (30-135) 06/25/20 20:35 Troponin I < 0.012 ng/mL 06/25/20 20:35 NT-Pro-B Natriuret Pep 72 pg/mL (<125) 06/25/20 20:35 Total Protein 6.6 g/dL (6.3-8.2) 06/25/20 20:35 Albumin 3.6 g/dL (3.5-5.0) 06/25/20 20:35 Urine Color STRAW 06/26/20 13:26 Urine Appearance CLEAR 06/26/20 13:26 Urine pH 8.0 (5.0-9.0) 06/26/20 13:26 Ur Specific [place] 1.011 06/26/20 13:26 Urine Protein NEGATIVE mg/dL (NEGATIVE) 06/26/20 13:26 Urine Glucose (UA) NEGATIVE mg/dL (NEGATIVE) 06/26/20 13:26 Urine Ketones NEGATIVE mg/dL (NEGATIVE) 06/26/20 13:26 Urine Blood NEGATIVE (NEGATIVE) 06/26/20 13:26 Urine Nitrite NEGATIVE (NEGATIVE) 06/26/20 13:26 Urine Bilirubin NEGATIVE (NEGATIVE) 06/26/20 13:26 Urine Urobilinogen NEGATIVE mg/dL (<2.0) 06/26/20 13:26 Ur Leukocyte Esterase NEGATIVE (NEGATIVE) 06/26/20 13:26 Urine WBC (Auto) 0 /HPF 06/26/20 13:26 Urine RBC (Auto) 1 /HPF 06/26/20 13:26 Squamous Epi Cells Auto 1 /HPF 06/26/20 13:26 Urine Mucus (Auto) RARE /LPF 06/26/20 13:26 Urine Ascorbic Acid NEGATIVE (NEGATIVE) 06/26/20 13:26 Influenza A (RT-PCR) NEGATIVE (NEGATIVE) 06/26/20 01:54 Influenza B (RT-PCR) NEGATIVE (NEGATIVE) 06/26/20 01:54 RSV (RT-PCR) NEGATIVE (NEGATIVE) 06/26/20 01:54 SARS-CoV-2 Rap RNA(RT-PCR) NEGATIVE (NEGATIVE) 06/26/20 01:54 06/25/20 06/25/20 20:35 20:35 Troponin I < 0.012 NT-Pro-B Natriuret Pep 72 Impressions: Chest/Abdomen CTA 06/25/20 22:39 [address]: 1[address] CT evidence of acute pulmonary embolism. 2. Compared with prior CT significant interval improvement in scattered groundglass opacities. On the current exam there is trace bilateral pleural effusions with adjacent dependent atelectatic changes and minimal residual groundglass opacities predominantly within the lingula. Plan Plan of Treatment: - To follow up with Dr. Bender - she was advised to taper off her prednisone over the course of 1 month and not stop it abruptly - advised to stop vaping Stroke Is this a Stroke Patient?: No Acute Heart Failure Is this a Heart Failure Patient?: No
== END 2020-06-27 13:16 | disposition home or self-care (01) | DRG 189 ==
LOC: ER 20:28 → EH 06-26 02:04 → INTOOBSV 06-26 02:04 → 4N 06-26 04:30 → OBSVTOIN 06-26 13:36
PROVIDERS: ADMIT Student in an Organized Health Care Education/Training Program; ATTEND Internal Medicine
PROC: 5A09357 Assistance with Respiratory Ventilation, Less than 24 Consecutive Hours, Continuous Positive Airway Pressure (ICD-10-PCS; principal; 2020-06-25)
DX: J96.01 Acute respiratory failure with hypoxia (principal); J44.1 Chronic obstructive pulmonary disease with (acute) exacerbation; J82.81 Chronic eosinophilic pneumonia; E87.2 Acidosis; J44.0 Chronic obstructive pulmonary disease with (acute) lower respiratory infection; E87.6 Hypokalemia; U07.0 Vaping-related disorder; Z20.828 Contact with and (suspected) exposure to other viral communicable diseases; E11.40 Type 2 diabetes mellitus with diabetic neuropathy, unspecified; F32.9 Major depressive disorder, single episode, unspecified; D72.825 Bandemia; T38.0X5A Adverse effect of glucocorticoids and synthetic analogues, initial encounter; Y92.9 Unspecified place or not applicable; Z87.891 Personal history of nicotine dependence; Z79.899 Other long term (current) drug therapy; Z79.52 Long term (current) use of systemic steroids; Z82.49 Family history of ischemic heart disease and other diseases of the circulatory system
CPT/HCPCS: 36415; 71045; 71275; 80048; 80053; 81001; 82550; 82803; 83605; 83880; 84484; 85025; 85379; 93005; 93010; 94660; 0241U; C9803; J0696; J1650; J1956; J3490; J7030; J7512